=== PATIENT | female | born 1990 | race Caucasian/White ===

== ENCOUNTER 2024-08-27 10:01 | Outpatient (CLI) | payer BC, SELFPAY ==
--- NOTE | ~2024-08-27 | US_ITS ---
EXAMINATION: US OB <= 14 weeks fetus DATE: 08/27/2024 10:51 INDICATION: Threatened miscarriage during first trimester . TECHNIQUE: Real-time pelvic ultrasound utilizing both a transvaginal and transabdominal probe was pe rformed. The interpreting radiologist was not present for the study. COMPARISON: None. FINDINGS: The uterus measures 11.5 x 7.4 x 8.9 cm. There is an intrauterine gestational sac. A yolk sac and fe carlo pole are identified. The crown rump length measures 6.2 cm, which correlates with an estimated ge stational age of 12 weeks and 4 days. heart motion is identified measuring 146 beats per minute (bpm) by M-mode Doppler. The right ovary is not visualized. The left ovary measures 3.3 x 2.7 x 1.3 with internal vascular leonie w with arterial and venous waveforms on color Doppler. There is no free fluid in the pelvis. IMPRESSION: 1. Single living fetus with heart rate of 146 bpm. 2. Gestational age by ultrasound of 12 weeks 4 day(s) +/- 1 week and 1 day(s) with ultrasound estima florentino date of delivery (JOE) of 03/07/2025. Reviewed, dictated and finalized at location [facility]. [facility] IMPRESSION: 1. Single living fetus with heart rate of 146 bpm. 2. Gestational age by ultrasound of 12 weeks 4 day(s) +/- 1 week and 1 day(s) with ultrasound estimated date of delivery (JOE) of 03/07/2025.
--- OUTSIDE RECORDS SUMMARY | 2024-08-27 10:30 | XMS_ITS | Data Portability ---
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 Plan of Treatment Reminders Order Date Submit Date Provider Last Modified By Organization Details Last Modified Time Details Appointments None recorded. Lab PPD (purified protein derivative ), skin test 2015 016 [facility] [employer]), [address] [place], [address], 6 11:10:55 PPD (purified protein derivative ), skin test 2015 016 [facility]), [address] [place], [address], 6 16:01:28 Referral endocrinol ogy referral - Patient with clinical goiter and thyroid symptoms; however labs and thyroid ultrasound normal. 2015 016 [email or web address] Samuel Stewart MD, [address] [place], [address], 6 10:25:33 Procedures None recorded. Surgeries None recorded. Imaging electromyo gram/nerve conduction study - right upper extremity pain and paresthesi a 2015 016 [facility], [address] [place], [address], 6 15:56:38 Medication Orders Depo-Prove ra 150 mg/mL intramuscu lar suspension 2015 016 [email or web address] Not available 6 11:11:32 Celexa 20 mg tablet 2015 016 [facility] [address] [place], [address], 6 11:00:00 Celexa 20 mg tablet 2015 016 [facility] [address] [place], [address], 6 15:39:19 Depo-Prove ra 150 mg/mL intramuscu lar suspension 2015 016 [email or web address] Not available 6 12:40:36 prednisone 10 mg tablet 2015 016 [facility] [address] [place], [address], 6 14:30:01 naproxen 500 mg tablet 2015 016 [facility] [address] [place], [address], 6 14:30:01 cyclobenza tracey 10 mg tablet 2015 016 [facility] [address] [place], [address], 6 15:02:43 naproxen 500 mg tablet 2015 016 [facility] [address] [place], [address], 6 15:02:44 Patient TargetsNo targets recorded. Patient Instructions Encounter Date Encounter Id Patient Instructions Last Modified By Organization Details Last Modified Time 07/28/2015 [id number] goiter: care instructions [email or web address] Not available 10/03/2015 10:46:07 learning about mood disorders Not available 10/03/2015 10:46:08 Follow up in 1 month for recheck on meds. Will follow up as scheduled for next depo shot [email or web address] Not available 07/28/2015 11:00:00 COUNSELING PROVIDED ON DIET AND EXERCISE WITH PATIENT. DISCUSSED IMPORTANCE OF HEALTHY, WELL BALANCED DIET. DISCUSSED BENEFITS OF REGULAR EXERCISE ROUTINE. [email or web address] Not available 07/28/2015 10:52:53 08/22/2015 [id number] learning about mood disorders [email or web address] Not available 10/03/2015 10:46:08 COUNSELING PROVIDED ON DIET AND EXERCISE WITH PATIENT. DISCUSSED IMPORTANCE OF HEALTHY, WELL BALANCED DIET. DISCUSSED BENEFITS OF REGULAR EXERCISE ROUTINE. hbarke Not available 08/22/2015 15:39:04 10/04/2015 [id number] Will follow up a s scheduled for next depo shot [email or web address] Not available 10/04/2015 12:17:17 COUNSELING PROVIDED ON DIET AND EXERCISE WITH PATIENT. DISCUSSED IMPORTANCE OF HEALTHY, WELL BALANCED DIET. DISCUSSED BENEFITS OF REGULAR EXERCISE ROUTINE. hbarke Not available 10/04/2015 12:17:17 11/11/2015 [id number] Will follow up i n 2 weeks for recheck; will obtain NCS to evaluate for paresthesia and pain [email or web address] Not available 11/11/2015 14:17:02 11/25/2015 [id number] Will check back with PT for appt. Follow up as needed [email or web address] Not available 11/25/2015 15:02:39 Reason for Referral Endocrinology Referral for G maryter Patient with clinical goiter and thyroid symptoms; however labs and thyroid ultrasound normal. Referring Physician: Vee Riley, Family Medicine, Encounter Date: 07/28/2015 Results Created Date Observation Date Name Description Value Unit Range Abnormal Flag Note LastModifiedBy Organization Detail LastModifiedTime 07/04/20 15 07/04/2015 CMP, serum or plasm a glucose 84 mg/dL 65-99 normal Fasti ng refer ence inter primo Not Available [employer] [facility] [address] [address], [place], [address], 07/04/2015 14:57:22 07/04/20 15 07/04/2015 CMP, serum or plasm a urea nitrogen (BUN) 13 mg/dL 7-25 normal Not Available [facility] [address] [address], [place], [address], 07/04/2015 14:57:22 07/04/20 15 07/04/2015 CMP, serum or plasm a creatinine 0.72 mg/dL 0.50-1 .10 normal Not Available [address], [address], 07/04/2015 14:57:22 07/04/20 15 07/04/2015 CMP, serum or plasm a eGFR non-afr. turkmen 118 mL/mi n/1.7 3m2 > or = 60 normal Not Available [address], [address], 07/04/2015 14:57:22 07/04/20 15 07/04/2015 CMP, serum or plasm a eGFR 137 mL/mi n/1.7 3m2 > or = 60 normal Not Available [address], [address], 07/04/2015 14:57:22 07/04/20 15 07/04/2015 CMP, serum or plasm a BUN/creatini ne ratio NOT APPLIC ABLE (calc ) 6-22 Not Available [address], [address], 07/04/2015 14:57:22 07/04/20 15 07/04/2015 CMP, serum or plasm a sodium 139 mmol/ L 135-14 6 normal Not Available [address], [address], 07/04/2015 14:57:22 07/04/20 15 07/04/2015 CMP, serum or plasm a potassium 4.2 mmol/ L 3.5-5. 3 normal Not Available [address], [address], 07/04/2015 14:57:22 07/04/20 15 07/04/2015 CMP, serum or plasm a chloride 101 mmol/ L 98-110 normal Not Available [address], [address], 07/04/2015 14:57:22 07/04/20 15 07/04/2015 CMP, serum or plasm a carbon dioxide 26 mmol/ L 19-30 normal Not Available [address], [address], 07/04/2015 14:57:22 07/04/20 15 07/04/2015 CMP, serum or plasm a calcium 9.8 mg/dL 8.6-10 .2 normal Not Available [address], [address], 07/04/2015 14:57:22 07/04/20 15 07/04/2015 CMP, serum or plasm a protein, total 8.0 g/dL 6.1-8. 1 normal Not Available [address], [address], 07/04/2015 14:57:22 07/04/20 15 07/04/2015 CMP, serum or plasm a albumin 4.7 g/dL 3.6-5. 1 normal Not Available [address], [address], 07/04/2015 14:57:22 07/04/20 15 07/04/2015 CMP, serum or plasm a globulin 3.3 g/dL_ (calc ) 1.9-3. 7 normal Not Available [address], [address], 07/04/2015 14:57:22 07/04/20 15 07/04/2015 CMP, serum or plasm a albumin/glob ulin ratio 1.4 (calc ) 1.0-2. 5 normal Not Available [address], [address], 07/04/2015 14:57:22 07/04/20 15 07/04/2015 CMP, serum or plasm a bilirubin, total 0.4 mg/dL 0.2-1. 2 normal Not Available [address], [address], 07/04/2015 14:57:22 07/04/20 15 07/04/2015 CMP, serum or plasm a alkaline phosphatase 112 U/L 33-115 normal Not Available [facility] [employer] [address], [address], 07/04/2015 14:57:22 07/04/20 15 07/04/2015 CMP, serum or plasm a AST 20 U/L 10-30 normal Not Available [address], [address], 07/04/2015 14:57:22 07/04/20 15 07/04/2015 CMP, serum or plasm a ALT 24 U/L 6-29 normal Not Available [address], [address], 07/04/2015 14:57:22 07/04/20 15 07/04/2015 CBC w/ auto diff white blood cell count 8.4 thous and/u L 3.8-10 .8 normal Not Available [address], [address], 07/04/2015 14:57:23 07/04/20 15 07/04/2015 CBC w/ auto diff red blood cell count 4.73 maricruz on/uL 3.80-5 .10 normal Not Available [address], [address], 07/04/2015 14:57:23 07/04/20 15 07/04/2015 CBC w/ auto diff hemoglobin 13.7 g/dL 11.7-1 5.5 normal Not Available [email or web address] [address], [address], 07/04/2015 14:57:23 07/04/20 15 07/04/2015 CBC w/ auto diff hematocrit 42.4 % 35.0-4 5.0 normal Not Available [address], [address], 07/04/2015 14:57:23 07/04/20 15 07/04/2015 CBC w/ auto diff MCV 89.6 fL 80.0-1 00.0 normal Not Available [address], [address], 07/04/2015 14:57:23 07/04/20 15 07/04/2015 CBC w/ auto diff MCH 29.0 pg 27.0-3 3.0 normal Not Available [address], [address], 07/04/2015 14:57:23 07/04/20 15 07/04/2015 CBC w/ auto diff MCHC 32.4 g/dL 32.0-3 6.0 normal Not Available [address], [address], 07/04/2015 14:57:23 07/04/20 15 07/04/2015 CBC w/ auto diff RDW 12.7 % 11.0-1 5.0 normal Not Available [address], [address], 07/04/2015 14:57:23 07/04/20 15 07/04/2015 CBC w/ auto diff platelet count 371 thous and/u L 140-40 0 normal Not Available [address], [address], 07/04/2015 14:57:23 07/04/20 15 07/04/2015 CBC w/ auto diff MPV 8.0 fL 7.5-11 .5 normal Not Available [address], [address], 07/04/2015 14:57:23 07/04/20 15 07/04/2015 CBC w/ auto diff absolute neutrophils 4351 cells /uL 1500-7 800 normal Not Available [address], [address], 07/04/2015 14:57:23 07/04/20 15 07/04/2015 CBC w/ auto diff absolute lymphocytes 3385 cells /uL 850-39 00 normal Not Available [address], [address], 07/04/2015 14:57:23 07/04/20 15 07/04/2015 CBC w/ auto diff absolute monocytes 529 cells /uL 200-95 0 normal Not Available [address], [address], 07/04/2015 14:57:23 07/04/20 15 07/04/2015 CBC w/ auto diff absolute eosinophils 101 cells /uL 15-500 normal Not Available [address], [address], 07/04/2015 14:57:23 07/04/20 15 07/04/2015 CBC w/ auto diff absolute basophils 34 cells /uL 0-200 normal Not Available [address], [address], 07/04/2015 14:57:23 07/04/20 15 07/04/2015 CBC w/ auto diff neutrophils 51.8 % normal Not Available [address], [address], 07/04/2015 14:57:23 07/04/20 15 07/04/2015 CBC w/ auto diff lymphocytes 40.3 % normal Not Available [address], [address], 07/04/2015 14:57:23 07/04/20 15 07/04/2015 CBC w/ auto diff monocytes 6.3 % normal Not Available [address] [place], [address], 07/04/2015 14:57:23 07/04/20 15 07/04/2015 CBC w/ auto diff eosinophils 1.2 % normal Not Available [facility] [place] [address] [place], [address], 07/04/2015 14:57:23 07/04/20 15 07/04/2015 CBC w/ auto diff basophils 0.4 % normal Not Available [facility] [place] [address] [address], [place], [address], 07/04/2015 14:57:23 07/04/20 15 07/04/2015 varic miriam dallas igg Ab scree n, serum varicella zoster virus antibody (IgG) 4.02 index normal Index Expla natio n of Resul ts ----- ---- ----- ----- ----- ----- -- < or = 0.90 Negat leora - No VZV IgG Antib lexis detec florentino 0.91 - 1.09 Equiv ocal > or = 1.10 Posit leora - VZV IgG Antib lexis detec florentino A posit leora resul t indic ates that the patie nt has antib lexis to VZV but does not diffe renti ate betwe en infec tion (acti ve or past) and vacci natio n. The clini mil diagn osis must be inter prete d in conju nctio n with the clini mil signs and sympt oms of the patie nt. This assay relia tita measu res immun ity due to previ ous infec tion but may not alway s be sensi tive enoug h to detec t antib odies induc ed by vacci natio n. Thus, a negat leora resul t in a vacci nated indiv idual does not neces saril y indic ate susce ptibi lity to VZV infec tion. Not Available [facility] [address] [place] [address] [address], [place], [address], 07/04/2015 14:57:24 07/04/20 15 07/04/2015 TSH, serum or plasm a TSH 1.86 mIU/L normal Refer ence Range > or = 20 Years 0.40- 4.50 Pregn otto Range s First trime ster 0.26- 2.66 Secon d trime ster 0.55- 2.73 Third trime ster 0.43- 2.91 NO COLLE CTION DATE RECEI MILA. WE HAVE USED THE DATE THE SPECI MEN WAS RECEI MILA BY THIS LABOR ATORY THE COLLE CTION DATE. IF THIS IS INCOR RECT, PLEAS E CONTA CT CLIEN T SERVI KATHERINE. PHONE NUMBE R: [phone] Not Available [email or web address] [facility] [address] [place], [address], 07/04/2015 14:57:24 08/22/19 16 08/22/2015 PPD (ramona fied prote in deriv ative ), skin test TB negati ve Not Available [facility] [employer] [facility]) [address] [place], [address], 08/22/2015 15:39:05 07/01/20 15 07/01/2015 rapid strep group A, throa t Strep negati ve Not Available [facility] [employer] ([place]) [address] [place], [address], 07/01/2015 16:34:27 07/28/19 16 07/28/2015 PPD (ramona fied prote in deriv ative ), skin test TB Not Available [facility] [employer] ([place]) [address] [place], [address], 07/28/2015 10:52:53 07/11/20 15 07/11/2015 US thyro id head/ neck/ sft tis [facility] [address] [place] [address] [facility] OGY REPORT ____ NAME: PENNY NIETO ROOM: : 1990 ACCJLUIS T#: [id number] BED: AGE: 24 Y ACCESS ION#: [id number] SEX: F EXAM: UTHY THYROI D HEAD/N FREDO/SF T TIS US DOS: 2014 DICTAT ED BY: KRISTEN ASKEW ORDERE D BY: VEE RILEY ATTEND ING PHYSIC JÚNIOR: VEE RILEY PRIMAR Y CARE PHYSIC JÚNIOR: VEE RILEY ____ EXAM: Thyroi d ultras ound. Histor y: Nontox ic goiter . Techni que: Multip le sonogr aphic images throug h the thyroi d gland were obtain ed. Color duplex Dopple r was used to interr ogate vascul ar flow. Findin gs: The right lobe of the thyroi d measur es 3.6 cm x 1.2 cm x 1.2 cm and is withou t discre te nodule identi fied. The thyroi d isthmu s measur es 2.2 mm in thickn ess. The left lobe of the thyroi d measur es 3.5 cm x 1.3 cm x 1.1 cm and is withou t discre te nodule identi fied. The thyroi d gland is not hyperv ascula r. No extrat hyroid al masses are identi fied. Impres jaime: Unrema rkable thyroi d ultras ound. This docume nt is electr onical ly signed by: Kristen suh on 2014 at 10:04 AM (CTO) . KRISTEN SUH M.DRoya D Date/T james: 2014 10:[address] T Date/T james: 2014 10:[address] MT: [facility] Page 1 of 1 [facility] (Imaging) [address] [place], [address], 07/28/2015 10:56:46 07/12/20 15 07/11/2015 ultra sound , thyro id No observ ation record ed. [facility] (Rad) [address] [place], [address], 07/28/2015 10:56:46 08/25/19 16 08/25/2015 CT neck wo [facility] [address] [place] [address] [phone] [facility] OGY REPORT ____ NAME: PENNY NIETO ROOM: : 1990 ACCOUN T#: [id number] BED: AGE: 24 Y ACCESS ION#: [id number] SEX: F EXAM: CTNKS CT NECK W/O CONTRA ST DOS: 2015 DICTAT ED BY: KRISTEN ASKEW ORDERMando D BY: VEE RILEY ATTEND ING PHYSIC JÚNIOR: VEE RILEY PRIMNE Y CARE PHYSIC JÚNIOR: VEE RILEY ____ EXAM: CT of the neck withou t contra st. Histor y: Neck swelli ng. Techni que: Multip lanar CT images throug h the soft tissue neck were obtain ed withou t the admini strati on of IV contra st. Findin gs: The visual ized lung apices are free of consol idatio n. No acute osseou s abnorm alitie s. The visual ized parana darrell sinuse s and mastoi d air cells are clear in genera l. The epiglo ttis is not thicke osei. Evalua tion for lymph nodes is limite d due to lack of contra st admini strati on but no bulky neck lympha denopa thy is identi fied. There are severa l small bilate ral cervic al chain neck lymph nodes. The subman dibula r glands are not inflam ed. The paroti d glands are not inflam ed. Bilate ral paroti d soft tissue nodule s measur ing up to 7 mm on the right and 5 mm on the left. No discre te thyroi d nodule s identi fied. The tonsil s are not inflam ed. No fluid collec tions. The visual ized orbits are intact . Visual ized intrac ranial conten ts demons trate no grossl y acute findin gs. Impres jaime: 1. Indete rminat e sub-ce ntimet er bilate ral paroti d nodule s. Both benign and malign ant etiolo gies should be consid ered. Furthe r evalua tion/f ollow- up recomm ended. 2. Evalua tion for lymph nodes is limite d due to the lack of contra st admini strati on but no bulky lympha denopa thy identi fied. There are severa l small bilate ral cervic al chain neck lymph nodes that could be reacti ve. Page 1 of 2 [facility] OGY REPORT ____ NAME: PENNY NIETO ROOM: : 1990 ACCOUN T#: [id number] BED: AGE: 24 Y ACCESS ION#: [id number] SEX: F EXAM: CTNKS CT NECK W/O CONTRA ST DOS: 2015 DICTAT ED BY: KRISTEN ASKEW ORDERE D BY: VEE RILEY ATTEND ING PHYSIC JÚNIOR: VEE RILEY PRIMAR Y CARE PHYSIC JÚNIOR: DELGADOGEORGIANA GilmoreEY Loretta ____ This docume nt is electr onical ly signed by: Kristen suh on 2015 at 09:41 AM (CTO) . KRISTEN SUH M.D. D Date/T james: 2015 09:[address] T Date/T james: 2015 09:[address] MT: [facility] Page 2 of 2 [facility] (Imaging) [address] [place], [address], 10/04/2015 12:17:18 08/26/19 16 08/25/2015 CT, neck No observ ation record ed. [facility] (Rad) [address] [place], [address], 10/04/2015 12:17:18 11/17/19 16 11/17/2015 elect romyo gram/ nerve condu ction study No observ ation record ed. [address] In-House Results [address] [place], [address], 11/18/2015 12:39:55 Result Notes None recorded. Problems Name Problem SNOMED Code Status Onset Date Resolution Date Notes Provider Name and Address Organization Details Recorded Time Paresthesia of hand 329472435 TICO Chu [address] [place], [place] [address], [address], [facility] [employer] 6 15:03:21 Paresthesia of upper limb 84769749 TICO [address] [place], [address], [facility] [employer] [facility] 6 15:03:21 Cervical radiculopathy 45661867 TICO [address] [place], [address], [facility] [employer] 6 15:03:21 Goiter 7531687 Active TICO Coello [address] [place], [address], [facility] [employer] 6 15:03:21 Depressive disorder 56276656 Active TICO Coello [address] [facility] [place], [address], [facility] [employer] 6 15:03:21 Mass of neck 746529218 Active TICO Coello [address] [facility] [place], [address], [facility], [facility] 6 15:03:21 Problem Notes None recorded. Procedures Surgical History Date Name Laterality Status Provider Name and Address Organization Details Recorded Time 07/28/2015 PHQ-9 completed TICO Coello [address] [facility] [place], [address], [facility] [employer], [facility] 07/28/2015 10:55:27 Imaging Results Imaging Date Name Status LastModified by [facility] Details LastModified Time 07/11/2015 US thyroid head/neck/sft tis completed [facility] (Imaging) [address] [facility] [place], [address], 07/28/2015 10:56:46 07/11/2015 ultrasound, thyroid completed [facility] (Rad) [address] [place], [address], 07/28/2015 10:56:46 08/25/2015 CT neck wo completed [facility] (Imaging) [address] [facility] [place], [address], 10/04/2015 12:17:18 08/25/2015 CT, neck completed [facility] (Rad) [address] [place], [address], 10/04/2015 12:17:18 11/17/2015 electromyogram/ nerve conduction study completed [email or web address] In-House Results [address] [place], [address], 11/18/2015 12:39:55 Procedure Notes None recorded. Medical Equipment None Reported. Allergies No known drug allergies Medications Name Sig Start Date Stop Date Status Note LastModified by Organization Details LastModified Time cyclobenzapr ine 10 mg tablet Take 1 tablet every day by oral route at bedtime. 2015 active Not Available Not Available Not Avai lable prednisone 10 mg tablet Take by oral route. Take 3 pills x 2 days, 2 pills x 2 days, 1 pill x 2 days. 2015 active Not Available Not Available Not Avai lable Depo-Provera 150 mg/mL intramuscula r suspension Inject 1 mL every 3 months by intramuscul ar route. 2015 active Not Available Not Available Not Avai lable Celexa 20 mg tablet Take 1 tablet every day by oral route. 2015 active Not Available Not Available Not Avai lable naproxen 500 mg tablet Take 1 tablet twice a day by oral route. 2015 active Not Available Not Available Not Avai lable Vitals Date Recorded Body mass index (BMI) Body height Body weight Heart rate Systolic blood pressure Diastolic blood pressure Provider Name and Address Organization Details Last Updated DateTime 6 28.3 kg/m2 162.56 cm 22848.0 22727 g 74 /min 118 mm[Hg] 70 mm[Hg] [employer] [facility] [employer] [facility] 6 10:34:24 Date Recorded Body weight Body mass index (BMI) Heart rate Body height Systolic blood pressure Diastolic blood pressure Provider Name and Address Organization Details Last Updated DateTime 6 99882.7 792 g 27.5 kg/m2 74 /min 162.56 cm 126 mm[Hg] 62 mm[Hg] [facility] 6 15:32:55 Date Recorded Body weight Body mass index (BMI) Body height Systolic blood pressure Diastolic blood pressure Provider Name and Address Organization Details Last Updated DateTime 10/04/2015 34045.18 683 g 27.3 kg/m2 162.56 cm 126 mm[Hg] 72 mm[Hg] Chelle Samson [place] [employer] 6 12:08:20 Date Recorded Body mass index (BMI) Body height Heart rate Body weight Systolic blood pressure Diastolic blood pressure Provider Name and Address Organization Details Last Updated DateTime 6 28.4 kg/m2 162.56 cm 78 /min 89487.4 86018 g 120 mm[Hg] 71 mm[Hg] Laureen Chahalkins [place] [employer] 6 14:05:20 Date Recorded Body weight Body height Heart rate Oxygen saturation Oxygen saturation in Arterial blood by Pulse oximetry Body mass index (BMI) Systolic blood pressure Diastolic blood pressure Provider Name and Address Organization Details Last Updated DateTime 6 43164.1 4868 g 162.56 cm 114 /min 97 % 97 % 28.2 kg/m2 140 mm[Hg] 68 mm[Hg] Margaret Weir LPN [place] [employer] 14:52:06 Social History Question Answer Notes LastModified by Organizat ion Details LastModified Time Tobacco Smoking Status Never [facility]oker [facility] [employer] 07/01/2015 16:30:03 What Is Your Level Of Alcohol Consumption? None Information not available 07/28/2015 Which Illicit Or Recreational Drugs Have You Used? None Information not available 07/28/2015 Do You Reside In Or Have You Traveled To An Area Where Ebola Virus Transmission Is Active? No Information not available 07/28/2015 Education 4 Year College Information not available 07/28/2015 Hard Of Hearing Or Deaf In One Or Both Ears? No Information not available 07/28/2015 Legally Blind In One Or Both Eyes? No Information no t available 07/28/2015 Live Alone Or With Others? With Others Information not available 07/28/2015 How Many Children Do You Have? 1 Information not available 07/28/2015 Smoke Alarm In Home Yes Information not available 07/28/2015 Sex: Unknown Functional Status None recorded. Mental Status None recorded. Family History Relationship Description Onset Age of this Age Resolved Age Notes LastModified by Organization Details LastModified Time Unspecified Relation Diabetes mellitus [email or web address] Not available 2015 14:05:21 Unspecified Relation Hypertensive disorder [email or web address] Not available 2015 14:05:21 Sister Hypothyroidi sm [email or web address] Not available 2015 14:05:21 Medical History Condition Response Coronary Artery Disease N Heart Problems N Other N Hyperthyroidism N Kidney or Bladder Problems N GI Problems N Hypothyroidism N Depression Y COPD N Defects or Inherited Disease N Anemia N Headaches/Migraines N Mental Illness N Diabetes N Muscle, Joint, or Bone Problems N Obesity N Arthritis N Infertility N Tuberculosis N AIDS/HIV N Congestive Heart Failure (CHF) N Cancer N Abuse/Domestic Violence N Asthma N Allergies N Reflux/GERD N High Cholesterol N Hepatitis N Fibromyalgia N Hypertension N Chicken Pox N Gynecological History Statement/Question Response Flow Moderate Date of LMP 06/16/2015 Menses Monthly Y HPV Vaccine N Date of Last Pap Smear Current Control Method None LMP Approximate Desired Control Method Obstetrics History GPAL:G 0 P 0 0 0 0 Immunizations Vaccine Type Date Status Note Provider Nam e and Address Organization Details Recorded Time Tdap 07/28/2015 completed Not Available [facility] 08/08/2019 02:28:13 DTaP, 5 pertussis antigens 03/05/1997 [place], [address], [facility] 07/28/2015 10:46:53 MMR 03/01/1993 [place], [address], [facility] 07/28/2015 10:46:53 GNkA-Swr-VTL 03/18/1992 [place], [address], [facility] 07/28/2015 10:46:53 DTaP-IPV 05/26/1993 completed TICO Coello [facility] [place], [address], [facility] [employer] 07/28/2015 10:46:53 IIoT-Cow-KTW 01/07/1992 completed TICO Coello [place] [facility] [place], [address], [facility] [employer] [employer] 07/28/2015 10:46:53 VTaV-Dms-OER 05/20/1992 completed TICO Coello [address] [place], [address], [facility] [employer] 07/28/2015 10:46:53 MMR 01/27/1997 completed TICO Coello [address] [place], [address], [facility] [employer] 07/28/2015 10:46:53 Past Encounters Encounter ID Performer Location Encounter Start Date Encounter Closed Date Diagnosis/Indication Diagnosis SNOMED-CT Code Diagnosis ICD10 Code Diagnosis Note [id number] TICO Coello [address] [address] 07/01/2015 16:12:42 07/01/2015 16:46:27 Goiter 0143052 E04.9 [id number] TICO Coello [address] [address] 07/28/2015 10:21:19 07/28/2015 10:58:53 Goiter 9791365 E04.9 Depressive disorder 3548 9007 F32.9 Contraception care 83924 5005 Z30.40 [id number] TICO Coello [address] [address] 08/22/2015 15:24:53 08/22/2015 15:39:50 Depressive disorder 53019207 F32.9 Active or passive immunization 298083135 Z23 [id number] TICO Coello [address] [address] 10/04/2015 11:47:55 10/04/2015 12:19:28 Contraception care 751137898 Z30.40 [id number] TICO Coello [address] [address] 11/11/2015 13:46:12 11/11/2015 14:18:11 Paresthesia of hand 682080972 R20.2 Paresthesi a of upper limb 67801553 R20.2 [id number] TICO Coello [address] [address] 11/25/2015 14:46:56 11/25/2015 15:03:36 Cervical radiculopathy 20142169 M54.12 Health Concerns Section Related Observation LastModified by Organization Detai ls LastModified Time None Recorded Concern Status LastModified by Organization Details LastModified Time None Recorded Advance Directives Directive None Recorded Payers Encounter Date Sequence Insurance Name Policy Number Policy Erazo Covered Member ID Erazo Member ID Guarantor Name 07/28/2015 1 [place] [facility] Penny Nieto [id number] Penny Nieto 08/22/2015 1 [place] [facility] Penny Nieto [id number] Penny Nieto 10/04/2015 1 [place] [facility] Penny Nieto [id number] Penny Nieto 11/11/2015 1 [place] [facility] Penny Nieto [id number] Penny Nieto 11/25/2015 1 [place] [facility] A[facility] Penny Nieto [id number] Penny Nieto Notes Date Note Type Note Provider Name and Address Organization Details Recorded Time 07/28/2015 text/html Patient here tomarlene ay for new patient appointment. Otherwise she is still needing a referral to ENDO. No other concerns to report. TICO Coello [address] [place] [address], [phone], [employer] 07/28/2015 11:00:13 08/22/2015 text/html Patient here tod ay for her 2nd TB skin test and to recheck her Celexa which she states is working well. Denies any other concerns at today's visit. TICO Coello [address] [place] [address], [phone], [employer] 08/22/2015 15:39:07 10/04/2015 text/html Patient here tod ay for her depo shot. She has no concerns to report at today's visit. TICO Coello [address] [place] [address], [phone], [employer] 10/04/2015 12:17:38 11/11/2015 text/html Patient here tod ay for concerns or right arm/shoulder pain. She states she has had trouble with her shoulder for the last couple of years, but just the other day she was sitting in her car and had a pain shoot from her wrist up her arm to her shoulder area. She does have numbness/tingling in her arm. She has also noticed decreased strength in the wrist and hand. She has trouble writing at times. Otherwise no other concerns to report. TICO Coello [address] [place] [address], [phone], [facility] [employer], [facility] 11/11/2015 14:30:09 11/25/2015 text/html Patinet here tod fernando for a follow up on meds and imaging. We had referred her to PT; however she has not heard from them yet. She states she has noticed some improvement with the medications. Otherwise no other concerns to report. TICO Coello [address] [place], [address], [facility] [employer], [facility] 11/25/2015 15:03:26 OBGyn Episode No OBEpisode recorded.
--- OUTSIDE RECORDS SUMMARY | 2024-08-27 10:30 | XMS_ITS | Clinical Summary ---
Author Organization [facility] Address [address] [place] [address] Care Team Providers Care Financial Consultant Name Role Phone Randall Salgado MD Unavailable [phone] Ranjan Gerard MD Primary Care Provider + Allergies No known active allergies Medications No known medications Active Problems Problem Noted Date Diagnosed Date Pre-syncope 07/09/2021 Bartholin's duct cyst 02/11/2020 Overview (09/21/2021): Added automatically from request for surgery [id number] C6 radiculopathy 12/11/2018 Essential hypertension 12/11/2018 Encounters Date Type Department Care Team Description 07/08/2024 11:00 AM NURSING HOME ASSISTANT Office Visit [address] [address] Ranjan Gerard MD Follow Up (Follow up for DM /) 07/08/2024 Travel from Last 3 Months Immunizations Name Administration Dates Next Due DTaP-IPV (Kinrix) 05/26/1993 DTaP-IPV/Hib (Pentacel) 05/20/1992,03/18/1992, Dtap 03/05/1997 Dtp 05/20/1992 HPV GARDASIL 9-VALENT 05/11/2020,03/01/2020 HPV4 (Gardasil) 09/14/2020 Hepatitis B (Generic Peds) 03/05/1997,11/03/1996 ,09/29/1996 Hib 05/26/1993,05/20/1992 Influenza Adult (Generic) 04/24/2019,04/18/2017 MMR 01/27/1997,03/01/1993 MODERNA COVID-19 (12+) MRNA, LNP-S, PF, 100 MCG/ 0.5 ML DOSE 10/06/2020,09/07/2020 Opv 03/05/1997 Tdap (Generic) 07/28/2015 Family History Medical History Relation Comments pulmonary valve stenosis Daughter Diabetes Father Hypertension Father Hypertension Mother Diabetes Paternal Grandfather Diabetes Sister Relation Status Comments Daughter Father Mother Paternal Grandfather Sister Social History Tobacco Use Types Packs/Day Years Used Date Smoking Tobacco: Never Passive Smoke Exposure: Never Smokeless Tobacco: Never Tobacco Cessation:Counseling Given: No Alcohol Use Standard Drinks/Week Comments No 0 (1 standard drink = 0.6 oz pur e alcohol) AUDIT-C Answer Date Recorded Frequency of Alcohol Consumption Never 10/31/2018 Average Number of Drinks Not on file Frequency of Binge Drinking Not on file 10/20 PHQ-2 Answer Date Recorded Patient Health Questionnaire-2 Score 0 07/08/2024 Comments No Sex and Gender Information Value Date Recorded Sex Assigned at Not on file Legal Sex Female 8:52 AM CDT Gender Identity Not on file Sexual Orientation Not on file Last Filed Vital Signs Vital Sign Reading Time Taken Comments Blood Pressure 130/70 07/08/2024 10:45 AM NURSING HOME ASSISTANT Pulse 87 07/08/2024 10:45 AM NURSING HOME ASSISTANT Temperature 36.7 C (98.1 F) 07/08/2024 10:45 AM NURSING HOME ASSISTANT Respiratory Rate 20 07/08/2024 10:45 AM NURSING HOME ASSISTANT Oxygen Saturation 100% 07/08/2024 10:45 AM NURSING HOME ASSISTANT Inhaled Oxygen Concentration - - Weight 77.7 kg (171 lb 6.4 oz) 07/08/2024 10:45 AM NURSING HOME ASSISTANT Height 162.6 cm (5' 4 ) 07/08/2024 10:45 AM NURSING HOME ASSISTANT Body Mass Index 29.42 07/08/2024 10:45 AM NURSING HOME ASSISTANT Plan of Treatment Health Maintenance Due Date Last Done Comments Cervical Cancer Screening Pap Smear (Age 30 to 64) Every 3 Years 1991 Kidney Health Evaluation 1991 Annual Physical 11/12/1994 Pneumococcal Vaccine: Pediatrics (0 to 5 Years) and At-Risk Patients (6 to 64 Years) (1 of 2 - PCV) 11/12/1997 Diabetes: Retinopathy Eye Exam 11/12/2009 Hepatitis C 11/12/2009 Cervical Cancer Screening Pap with HPV Testing (Age 30 to 64) Every 5 Years 11/12/2021 Cervical Cancer Screening with HPV 11/12/2021 COVID-19 Vaccine ( season) 2024 10/06/2020, 09/07/2020 Influenza Adult (#1) 2024 05/14/2023, 04/21/2021, 05/04/2020, Additional history exists PHQ-2 (Physician [place]) 07/22/2024 07/08/2024 Lipid Panel 11/24/2024 11/25/2023 Hemoglobin A1C 01/06/2025 07/08/2024, 05/0 12/2023, 05/09/2021 PHQ-2 (Physician [place]) 07/08/2025 07/08/2024 DTaP, Tdap and Td Vaccines (8 - Td or Tdap) 06/06/2033 06/06/2023, 07/28/2015, 01/31/2006, Additional history exists Hepatitis B Vaccines Completed 03/05/1997, 11/03/1996, 09/29/1996 Meningococcal Vaccine Aged Out 01/31/2006 No grace indra eligible based on patient's age to complete this topic HPV Vaccines Completed 09/14/2020, 04/22, 03/01/2020 Meningococcal B Vaccine Aged Out No l onger eligible based on patient's age to complete this topic RSV Immunizations Under 20 Months Aged Out No longer eligible based on patient's age to complete this topic Procedures Procedure Name Priority Date/Time Associated Diagnosis Comments HEMOGLOBIN, GLYCOSYLATED Routine 07/08/2024 Type 2 diabetes mellitus without complication, without long-term current use of insulin ([facility]) LIPID PANEL Routine 11/25/2023 9:23 AM CDT Type 2 diabetes mellitus without complication, without long-term current use of insulin ([facility]) from Last 3 Months or Most Recently Relevant to Health Maintenance Results * A1C (BACK OFFICE) (07/08/2024) HGB A1C 8.8 % [facility] (6207)[place] 07/08/2024 Ranjan Gerard MD LABORATORY Final Re sult [facility] (3416), [place] [address] [place] [address], * LIPID PANEL (11/25/2023 9:23 AM CDT) CHOLESTEROL 150 <200 MG/DL 11/25/2023 10:[address] [facility] TRIGLYCERIDES 53 <150 MG/DL 11/25/2023 10:[address] [facility] HDL 52 >40.0 MG/DL 11/25/2023 10:[address] [facility] LDL (CALCULATED) 87 <100 MG/DL 11/25/19 10:[address] [facility] NON HDL CHOLESTEROL 98 <130 MG/DL 11/24 10:[address] [facility] Comment: NOTE: WHEN THE TRIGLYCERIDES ARE >200 mg/dL, NON HDL C IS A SECONDARY TARGET OF THERAPY, WITH A GOAL 30 mg/dL HIGHER THAN THE IDENTIFIED LDL C GOAL. CHOL/HDL RATIO 2.9 0.0 - 4.5 11/25/2023 10:[address] [facility] VLDL CALCULATION 11 5 - 55 MG/DL 11/25/2023 10:03 AM [facility] LIPID INTERPRETATION 11/25/2023 10:[address] [facility] Comment: NIH CONCENSUS REPORT RECOMMENDATIONS: ADULT CHILD LOW RISK: CHOLESTEROL <200 <170 TRIGLYCERIDE <150 --- HDL >=60 --- LDL <100 <110 BORDERLINE: CHOLESTEROL 200-239 170-199 TRIGLYCERIDE 150-199 --- HDL 40-59 --- LDL 100-159 110-129 HIGH RISK: CHOLESTEROL >=240 >=200 TRIGLYCERIDE >=200 --- HDL <40 --- LDL >=160 >=130 11/25/2023 9:23 AM CDT Ranjan Gerard MD LABORATORY Final Re sult [facility] [address] [place] [address], from Last 3 Months or Most Recently Relevant to Health Maintenance Insurance [facility] Care Teams Financial Consultant Relationship Specialty Start Date End Date Ranjan Gerard MD [address] [address] PCP - General FAMILY PRACTICE 11/19/23 Randall Salgado MD [address] [place] [address] [facility] Room Hand CARDIOVASCULAR DISEASE 10/24/18
--- OUTSIDE RECORDS SUMMARY | 2024-08-27 10:30 | XMS_ITS | Encounter Summary ---
Author Organization [facility] Address [address] [place] [address] Care Team Providers Care Pharmacovigilance Scientist Name Role Phone Jane Villatoro MD Primary Care Provider [phone] Randall Salgado MD Unavailable [phone] Ranjan Gerard MD Primary Care Provider + Encounter Details Date Type Department Care Team (Late st Contact Info) Description 10/30/2021 Abstract [facility] [address] Abstract, Doc [facility] Social History Tobacco Use Types Packs/Day Years Used Date Smoking Tobacco: Never Smokeless Tobacco: Never Alcohol Use Standard Drinks/Week Comments No 0 (1 standard drink = 0.6 oz pur e alcohol) AUDIT-C Answer Date Recorded Frequency of Alcohol Consumption Never 10/31/2018 Average Number of Drinks Not on file 019 Frequency of Binge Drinking Not on file 10/20 Comments No Sex and Gender Information Value Date Recorded Sex Assigned at Not on file Legal Sex Female 8:52 AM CDT Gender Identity Not on file Sexual Orientation Not on file documented as of this encounter Plan of Treatment Not on file documented as of this encounter Procedures Procedure Name Priority Date/Time Associated Diagnosis Comments MAGNESIUM (OUTSIDE LAB) Routine 05/09/2021 TSH (OUTSIDE LAB) Routine 05/09/2021 CMP (OUTSIDE LAB) Routine 05/09/2021 HEMOGLOBIN, GLYCOSYLATED Routine 05/09/2021 CMP (OUTSIDE LAB) Routine 02/10/2021 documented in this encounter Results * (ABNORMAL) CMP (OUTSIDE LAB) (05/09/2021) SODIUM S/P/B 139 134 - 144 Comment:RESULT NOTE FASTING YES POTASSIUM S/P/B 4.4 3.5 - 5.2 CHLORIDE S/P/B 100 96 - 106 CO2 24 20 - 29 BUN 10 6 - 20 CREATININE S/P/B 0.58 0.57 - 1.00 EGFR AFR. AMER. 144(A) <=90 EGFR NON-AFR. AMER. 125(A) <=90 CALCIUM S/P/B 9.7 8.7 - 10.2 GLUCOSE 107(A) 65 - 99 mg/dL TOTAL PROTEIN S/P/B 7.5 6.0 - 8.5 ALBUMIN S/P/B 4.4 3.9 - 5.0 AST 21 0 - 40 ALT 18 0 - 32 ALKALINE PHOSPHATASE S/P/B 85 44 - 121 BILIRUBIN TOTAL S/P/B 0.2 0.0 - 1.2 05/09/2021 us Doc [facility] Abstract LAB-OUTSIDE/ABSTRACTED Final Result * (ABNORMAL) HEMOGLOBIN, GLYCOSYLATED (05/09/2021) HGB A1C 6.3(A) 4.8 - 5.6 % Comment:RESULT NOTE FASTING YES 05/09/2021 us Doc [facility] Abstract LABORATORY Final Result * MAGNESIUM (OUTSIDE LAB) (05/09/2021) Pathologist [facility] MAGNESIUM 1.9 1.6 - 2.3 Comment:RESULT NOTE FASTING YES 05/09/2021 us Doc [facility] Abstract LAB-OUTSIDE/ABSTRACTED Final Result * TSH (OUTSIDE LAB) (05/09/2021) TSH 1.720 0.450 - 4.500 Comment:RESULT NOTE FASTING YES T4 FREE DIRECT DIALYSIS 1.17 0.82 - 1.77 Comment:RESULT NOTE FASTING YES 05/09/2021 us Doc [facility] Abstract LAB-OUTSIDE/ABSTRACTED Final Result * (ABNORMAL) CMP (OUTSIDE LAB) (02/10/2021) SODIUM S/P/B 139 134 - 144 POTASSIUM S/P/B 4.5 3.5 - 5.2 CHLORIDE S/P/B 101 96 - 106 CO2 24 20 - 29 BUN 11 6 - 20 CREATININE S/P/B 0.67 0.5 - 1.0 EGFR AFR. AMER. 137(A) <=90 EGFR NON-AFR. AMER. 119(A) <=90 CALCIUM S/P/B 9.4 8.7 - 10.2 GLUCOSE 95 65 - 99 mg/dL TOTAL PROTEIN S/P/B 7.6 6 - 8.5 ALBUMIN S/P/B 4.6 3.5 - 5.0 AST 20 0 - 40 ALT 25 0 - 32 ALKALINE PHOSPHATASE S/P/B 91 48 - 121 BILIRUBIN TOTAL S/P/B 0.4 0.0 - 1.2 02/10/2021 us Doc [facility] Abstract LAB-OUTSIDE/ABSTRACTED Final Result documented in this encounter Visit Diagnoses Not on filedocumented in this encounter Care Teams Pharmacovigilance Scientist Relationship Specialty Start Date End Date Jane Villatoro MD [address] [place] [address] PCP - General FAMILY PRACTICE 10/24/18 11/18/23 Ranjan Gerard MD [address] [place] [address] PCP - General FAMILY PRACTICE 11/19/23 Randall Salgado MD [address] [place] [address] [employer] Manager CARDIOVASCULAR DISEASE 10/24/18 documented as of this encounter
--- OUTSIDE RECORDS SUMMARY | 2024-08-27 10:30 | XMS_ITS | Referral Summary ---
Author Organization [facility] Address [address] [place] [address] Care Team Providers Care Deck And Hull Assembler Name Role Phone No, Physician Primary Care Provider [phone] Encounters Date Type Department Care Team Description 08/25/2024 Documentation [facility] [address] [place] [phone] Sherry Luna MD Glycemic control - CGM review 08/19/2024 1:45 PM MANAGER GREEN Telemedicine [facility]ne[facility] [address] [place] [phone] Chronic hypertension affecting (Primary Dx); Unspecified high-risk ; Pre-existing type 2 diabetes mellitus during in first trimester; Supervision of high risk in first trimester; Previous with congenital heart defect, currently , first trimester 08/19/2024 1:15 PM MANAGER GREEN Ancillary Procedure [facility] [address] [place] [phone] Unspecified high-risk 08/18/2024 Telephone [facility]ne[facility] [address] [place] [phone] Araceli Tee 08/07/2024 Telephone [facility] Maternal- Medicine [address] [place] [address] Health 7th Floor [address] [place] [address] Rita Henao, OVERHEAD IRRIGATOR Scheduling US/OB Consult from Last 3 Months Allergies No known active allergies Medications insulin lispro (HumaLOG, ADMELOG) 100 unit/mL vial for injection Inject 7 Units under the skin 3 (three) times a day before meals Active insulin glargine 100 unit/mL (3 mL) pen for injection Inject 25 Units under the skin daily Active aspirin 81 mg chewable tablet Take 1 tablet (81 mg total) by mouth daily Active Active Problems Problem Noted Date Diagnosed Date Previous with brina enital heart defect, currently , first trimester 08/19/2024 Overview (08/19/2024): History: 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 Doing well now. Counseling 08/19/2024: Congenital heart disease (CHD) is the most common severe congenital defect affecting 8-03/1000 live births. In patients who have a family history of CHD, risk of recurrence depends on what family member was affected. For an affected mother the risk of recurrence is 3-7%, an affected father the risk is 2-3% and a prior affected sibling the risk of recurrence is 2-6%. The increased risk can also vary depending on the particular type of CHD. 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 Doing well now. Counseling 08/19/2024: Congenital heart disease (CHD) is the most common severe congenital defect affecting 8-03/1000 live births. In patients who have a family history of CHD, risk of recurrence depends on what family member was affected. For an affected mother the risk of recurrence is 3-7%, an affected father the risk is 2-3% and a prior affected sibling the risk of recurrence is 2-6%. The increased risk can also vary depending on the particular type of CHD. Plan: [] Specialized anatomic survey at 18-22 weeks [] Offer echocardiogram with pediatric cardiology Supervision of high risk in first trim mike 08/11/2024 Overview (08/19/2024): [x] Co-management vs. [] Full MFM Care; [] Red Team [x] Blue Team Referring Provider: Trent Levin [phone] > Transferring to [facility] 08/30/24. [] or Medicare Insurance [x] Dating Criteria: LMP:05/28/24 JOE:03/04/25 [x] Labs: Rh [A-], Ab [NEG], Rubella [IMM], HIV [NEG], HepBSAg [NEG], HepBSAb [], HepBCAb [], RPR [], Hep C [NEG], Varicella [], GC/CT [] [] Aneuploidy Screening: [] Carrier Screening: [] Hgb electrophoresis: [x] CBC/Hgb: 13.8/40.8/394 [] Early 1hr GTT (if indicated): [] UCx: [] Pap: [x] LD ASA (if indicated): [] EPDS [ ]; PNBHS referral (if indicated): 2nd Trimester [] Anatomy ultrasound: [] CBC/1hr gtt at 24-28wks: [] Rhogam at 28 wks (if Rh neg): A- 3rd Trimester [] CBC/HIV/RPR/T&S: [] GBS: [] GC/CT (if indicated): [] testing: Twice weekly at 32 weeks (T2DM) Counseling [] MOD: Anticipate by 39 weeks (T2DM) [] Place of delivery: with primary OB Vaccines [] Flu Shot (Mar-Jun): [] COVID vaccine: [] Tdap (27-36wks): [] RSV vaccine (32-36wks): [] PP HPV vaccine counseling (<=26 yo): Assessment & Plan (08/19/2024 4:23 PM MANAGER GREEN): [x] Co-management vs. [] Full MFM Care; [] Red Team [x] Blue Team Referring Provider: Trent Levin [phone] > Transferring to [facility] 08/30/24. [] or Medicare Insurance [x] Dating Criteria: LMP:05/28/24 JOE:03/04/25 [x] Labs: Rh [A-], Ab [NEG], Rubella [IMM], HIV [NEG], HepBSAg [NEG], HepBSAb [], HepBCAb [], RPR [], Hep C [NEG], Varicella [], GC/CT [] [] Aneuploidy Screening: [] Carrier Screening: [] Hgb electrophoresis: [x] CBC/Hgb: 13.8/40.8/394 [] Early 1hr GTT (if indicated): [] UCx: [] Pap: [x] LD ASA (if indicated): [] EPDS [ ]; PNBHS referral (if indicated): 2nd Trimester [] Anatomy ultrasound: [] CBC/1hr gtt at 24-28wks: [] Rhogam at 28 wks (if Rh neg): A- 3rd Trimester [] CBC/HIV/RPR/T&S: [] GBS: [] GC/CT (if indicated): [] testing: Twice weekly at 32 weeks (T2DM) Counseling [] MOD: Anticipate by 39 weeks (T2DM) [] Place of delivery: with primary OB Vaccines [] Flu Shot (Mar-Jun): [] COVID vaccine: [] Tdap (27-36wks): [] RSV vaccine (32-36wks): [] PP HPV vaccine counseling (<=26 yo): Pre-existing type 2 diabetes mellitus during in first trimester 08/11/2024 Overview (08/25/2024): History & Counseling Diagnosed 2020 History of DKA? no Last hemoglobin A1C: 9.5% on 08/04/24 Pre- regimen: metformin, ozempic MFM counseling: completed 08/19/2024 Dexcom: sent share request on 08/19/24, added to DM Plan Current regimen: 08/25/2024 Glargine insulin 25 units qAM Humalog 7 units before meals > Humalog 10 units before meals - Physician adjusting insulin dosage: MFM [x] Counseling performed [x] Diabetes education [] Recommend weekly review of BG/insulin data to adjust insulin dosing [x] Glucagon prescribed by primary OB [x] Referral to ophthalmology for comprehensive eye exam - last 3 years, will make appointment [] Baseline CMP, UPC [] A1c qTrimester [x] 1st T: 9.5 08/04/24 [] 2nd T: [] 3rd T: [x] First trimester TSH 1.09 [x] ASA starting at 12 weeks gestation [] Baseline EKG, consider maternal TTE - with primary OB [] Specialized anatomy ultrasound at 18-20 weeks [] echocardiogram at 20-22 weeks [] Serial growth scans starting at 24 weeks [] Twice weekly testing starting at 32 weeks [] insulin plan by 32 weeks [] Delivery at 39 0/7-39 6/7 (36 0/7 to 38 6/7 with vascular complications or poorly controlled) Assessment & Plan (08/19/2024 4:22 PM MANAGER GREEN): History Diagnosed 2020 History of DKA? no Last hemoglobin A1C: 9.5% on 08/04/24 Pre- regimen: metformin, ozempic Dexcom: sent share request on 08/19/24, added to DM Current regimen: 08/19/2024 Glargine insulin 25 units qam, Humalog 7 units before meals Counseling 08/19/2024: Reviewed with patient that type 2 diabetes is the most common form of pregestational diabetes and is characterized by peripheral insulin resistance. is generally a state of increased insulin resistance, the one exception being late first trimester when relatively higher levels of estrogen may enhance insulin sensitivity and increase the maternal hypoglycemia, especially when associated with nausea and vomiting. As such, insulin requirements will likely change during and frequent monitoring throughout . This in combination with diabetic education, exercise, and diet control will be necessary to achieve optimal glycemic control. We reviewed that goal blood glucose values are generally fasting a premeal glucose of 95 mg/dL or less and 1 hour postprandial glucose of 140 mg/dL or less. We recommend checking blood sugar fasting, before each meal, and 1 hour after eating. The patient should also check urine ketones when their glucose level exceeds 200 mg/dL and should have glucagon available in case of hypoglycemic episodes. We also reviewed the increased maternal and risks associated with type 2 diabetes in . Discussed that major congenital anomalies (cardiac, neurologic and skeletal) are the leading cause of mortality in pregnancies complicated by diabetes and is directly related to hemoglobin A1C values. An A1c level of 9.5% is associated with a 8.1% anomaly rate, and an 18% rate of miscarriage. Other risks include large for gestational age or small for gestational age infants, delivery, and stillbirth. Maternal risks discussed include exacerbation of diabetes-related complications (particularly retinopathy and nephropathy), hypertensive disorders of , shoulder dystocia, and need for section. Also discussed that outcomes are best with optimal glycemic control. Lastly discussed that insulin drip will likely be required in labor. Plan - Physician adjusting insulin dosage: MFM [x] Counseling performed [x] Diabetes education [] Recommend weekly review of BG/insulin data to adjust insulin dosing [x] Glucagon prescribed by primary OB [x] Referral to ophthalmology for comprehensive eye exam - last 3 years, will make appointment [] Baseline CMP, UPC [] A1c qTrimester [x] 1st T: 9.5 08/04/24 [] 2nd T: [] 3rd T: [x] First trimester TSH 1.09 [x] ASA starting at 12 weeks gestation [] Baseline EKG, consider maternal TTE - with primary OB [] Specialized anatomy ultrasound at 18-20 weeks [] echocardiogram at 20-22 weeks [] Serial growth scans starting at 24 weeks [] Twice weekly testing starting at 32 weeks [] insulin plan by 32 weeks [] Delivery at 39 0/7-39 6/7 (36 0/7 to 38 6/7 with vascular complications or poorly controlled) Chronic hypertension affecting 025 Overview (08/19/2024): Diagnosis: ~2018 Pre- medications: lisinopril Counseling 08/19/2024: We counseled the patient that chronic hypertension is associated with an increased risk of adverse outcome, including growth restriction and stillbirth. Additionally, we discussed that hypertension is associated with development of superimposed preeclampsia with severe features and placental abruption, which can result in iatrogenic delivery in up to 30% of women with mild chronic hypertension. Baseline preeclampsia labs (CBC, creatinine, BUN, AST, ALT) are recommended in all patients with a history of hypertension. A workup for end organ damage is also recommended, including an EKG and UPC ratio. A fundoscopic exam by ophthalmology is recommended as well, if one has not been performed within 12 months. A baby aspirin is recommended at 12 weeks for preeclampsia prophylaxis. Preeclampsia symptoms (headache, scotomata, epigastric pain) were reviewed. We reviewed the course of blood pressures in , that usually patients experience a decrease in systemic pressure in the first trimester, and a gradual rise starting at 28 weeks. Recent data from 10/2021 in the CHAPS study recommend a treatment BP goal of <140/90 antepartum. This study was shown to reduce the risk of maternal preeclampsia with severe features, iatrogenic at less than 35 weeks of gestation, placental abruption, or or while the incidence of birthweight less than the 10th percentile was similar in the groups as were serious maternal and complications. Mildly elevated blood pressure (<150/100) in of patients with chronic hypertension have not been associated with poor outcome in the fetus or the mother. However, a preeclampsia workup would be recommended if her blood pressures is elevated and significantly above her usual baseline or in the severe range for . Current medication regimen: no medications 08/19/2024 Plan: [x] Low dose ASA 81 mg starting at 12 weeks - starting 08/19/2024 [] Baseline labs (CBC, CMP, UPC) - with primary OB needs CMP [] Baseline EKG - with primary OB [] Baseline ECHO (if dx >4yrs or >30) [] Growth scans starting at 24 weeks every 4 weeks [] If on medications, weekly surveillance starting at 32 weeks [] Delivery at 37w0d - 39w6d is recommended, although we discussed the possibility of earlier delivery for uncontrolled hypertension or preeclampsia. Assessment & Plan (08/19/2024 4:20 PM MANAGER GREEN): Diagnosis: ~2018 Pre- medications: lisinopril Counseling 08/19/2024: We counseled the patient that chronic hypertension is associated with an increased risk of adverse outcome, including growth restriction and stillbirth. Additionally, we discussed that hypertension is associated with development of superimposed preeclampsia with severe features and placental abruption, which can result in iatrogenic delivery in up to 30% of women with mild chronic hypertension. Baseline preeclampsia labs (CBC, creatinine, BUN, AST, ALT) are recommended in all patients with a history of hypertension. A workup for end organ damage is also recommended, including an EKG and UPC ratio. A fundoscopic exam by ophthalmology is recommended as well, if one has not been performed within 12 months. A baby aspirin is recommended at 12 weeks for preeclampsia prophylaxis. Preeclampsia symptoms (headache, scotomata, epigastric pain) were reviewed. We reviewed the course of blood pressures in , that usually patients experience a decrease in systemic pressure in the first trimester, and a gradual rise starting at 28 weeks. Recent data from 10/2021 in the CHAPS study recommend a treatment BP goal of <140/90 antepartum. This study was shown to reduce the risk of maternal preeclampsia with severe features, iatrogenic at less than 35 weeks of gestation, placental abruption, or or while the incidence of birthweight less than the 10th percentile was similar in the groups as were serious maternal and complications. Mildly elevated blood pressure (<150/100) in of patients with chronic hypertension have not been associated with poor outcome in the fetus or the mother. However, a preeclampsia workup would be recommended if her blood pressures is elevated and significantly above her usual baseline or in the severe range for . Current medication regimen: no medications 08/19/2024 Plan: [x] Low dose ASA 81 mg starting at 12 weeks - starting 08/19/2024 [] Baseline labs (CBC, CMP, UPC) - with primary OB needs CMP [] Baseline EKG - with primary OB [] Baseline ECHO (if dx >4yrs or >30) [] Growth scans starting at 24 weeks every 4 weeks [] If on medications, weekly surveillance starting at 32 weeks [] Delivery at 37w0d - 39w6d is recommended, although we discussed the possibility of earlier delivery for uncontrolled hypertension or preeclampsia. History of LEEP (loop electr osurgical excision procedure) of cervix complicating in first trimester 08/11/2024 Overview (08/19/2024): Counseling 08/19/2024: While some studies have suggested an increased risk of delivery after excisional procedures for cervical dysplasia, the best quality data do not support an association between LEEP procedure and delivery. It is important to pursue cervical dysplasia treatment in order to avoid progression to cancer and excisional procedures remain the best option for high grade dysplasia. There is some evidence that the underlying cervical disease itself may be a contributor to risk. We recommend routine cervical length screening for those with a history of LEEP and, if normal, no further cervical length screening is recommended. Assessment & Plan (08/19/2024 4:21 PM MANAGER GREEN): Counseling 08/19/2024: While some studies have suggested an increased risk of delivery after excisional procedures for cervical dysplasia, the best quality data do not support an association between LEEP procedure and delivery. It is important to pursue cervical dysplasia treatment in order to avoid progression to cancer and excisional procedures remain the best option for high grade dysplasia. There is some evidence that the underlying cervical disease itself may be a contributor to risk. We recommend routine cervical length screening for those with a history of LEEP and, if normal, no further cervical length screening is recommended. Estimated Date of Delivery Comme nts Yes 03/04/2025 Based on last me nstrual period of 05/28/2024 (Approximate) Social History Tobacco Use Types Packs/Day Years Used Date Smoking Tobacco: Never Smokeless Tobacco: Never Tobacco Cessation:Counseling Given: Not Answered Estimated Date of Delivery Comme nts Yes 03/04/2025 Based on last me nstrual period of 05/28/2024 (Approximate) Sex and Gender Information Value Date Recorded Sex Assigned at Not on file Legal Sex Female 9:48 AM MANAGER GREEN Gender Identity Not on file Sexual Orientation Not on file Last Filed Vital Signs Vital Sign Reading Time Taken Comments Blood Pressure 129/80 08/19/2024 1:19 PM MANAGER GREEN Pulse 80 08/19/2024 1:19 PM MANAGER GREEN Temperature - - Respiratory Rate - - Oxygen Saturation - - Inhaled Oxygen Concentration - - Weight 79.4 kg (175 lb) 08/19/2024 1:19 PM MANAGER GREEN Height 160 cm (5' 3 ) 08/19/2024 1:19 PM MANAGER GREEN Body Mass Index 31 08/19/2024 1:19 PM MANAGER GREEN Plan of Treatment Not on file Procedures Procedure Name Priority Date/Time Associated Diagnosis Comments US OB LIMITED Schedule Routine, Read Routine (OP Routine) 08/19/2024 12:49 PM MANAGER GREEN Unspecified high-risk ABO/RH Routine 08/03/2024 CBC WITHOUT DIFFERENTIAL Routine 08/03/2024 ANTIBODY SCREEN Routine 08/03/2024 RUBELLA IGG Routine 08/03/2024 HEPATITIS B SURFACE ANTIGEN Routine 08/03/2024 HIV 1/2 ANTIBODY PLUS P24 ANTIGEN Routine 08/03/2024 from Last 3 Months Results * US Ob Limited (08/19/2024 12:49 PM MANAGER GREEN) Anatomical Region Laterality Modality Abdomen N/A Ultrasound 08/19/2024 12:5 1 PM MANAGER GREEN Impressions 08/19/2024 1:31 PM MANAGER GREEN A single viable intrauterine was seen. Cardiac motion was observed. The CRL corresponded to reported dating criteria. The adnexa appeared normal bilaterally. Narrative Procedure Note Gracie Fierro MD - 08/19/2024 IMPRESSION: A single viable intrauterine was seen. Cardiac motion wasobserved. The CRL corresponded to reported dating criteria. The adnexaappeared normal bilaterally. Lucy Cox MD IMG OB US PROCEDURES Final Result * HIV 1/2 Antibody plus p24 Antigen Blood (08/03/2024) SCRIBED HIV P24 Nonreactive Nonreactive , Invalid Blood Tani Hayward MD LAB MICROBIOLOGY - GENERAL O RDERABLES Final Result * ABO/Rh (08/03/2024) SCRIBED ABO/Rh A- Blood Result [facility] Tani Hayward MD LAB BLOOD BANK TEST ORDERABL ES Final Result * Rubella IgG antibody Blood (08/03/2024) Rubella IgG Scribed Immune Blood Result [facility] Tani Hayward MD LAB MICROBIOLOGY - GENERAL O RDERABLES Final Result * Hepatitis B Surface Antigen Blood (08/03/2024) SCRIBED HBsAg Nonreactive Nonreactive , Invalid Blood Tani Hayward MD LAB MICROBIOLOGY - GENERAL O RDERABLES Final Result * CBC without differential (08/03/2024) Hct 40.8 Hgb 13.8 Plt 394 Blood Tani Hayward MD LAB BLOOD ORDERABLES Final R esult * Antibody screen (08/03/2024) SCRIBED Indirect Antiglobulin neg Blood Tani Hayward MD LAB BLOOD BANK TEST ORDERABL ES Final Result from Last 3 Months Insurance [place] Care Teams Deck And Hull Assembler Relationship Specialty Start Date End Date No, Physician PCP - General 08/04/24
--- OUTSIDE RECORDS SUMMARY | 2024-08-27 10:30 | XMS_ITS | Encounter Summary ---
Author Organization [facility] Address [address] [place] [id number] Care Team Providers Care Burial Vault Maker Name Role Phone Randall Salgado MD Unavailable [phone] Ranjan Gerard MD Primary Care Provider + Encounter Details Date Type Department Care Team (Late Contact Info) Description 11/25/2023 [employer] Message [email or web address] [facility] [employer] [address] [place] [address] [email or web address], [facility] Provider Proxy Request Social History Tobacco Use Types Packs/Day Years [...] Date Recorded Patient Health Questionnaire-2 Score 0 11/25/2023 Comments No Sex and Gender Information Value Date Recorded Sex Assigned at Not on file Legal Sex Female 8:52 AM CDT Gender Identity Not on file Sexual Orientation Not on file documented as of this encounter Plan of Treatment Not on file documented as of this encounter Visit Diagnoses Not on filedocumented in this encounter Care Teams Burial Vault Maker Relationship Specialty Start Date End Date Ranjan Gerard MD [address] [facility] [address] [place] [phone] PCP - General FAMILY PRACTICE 11/19/23 Randall Salgado MD [address] [place] [id number] [place] [employer] CARDIOVASCULAR DISEASE 10/24/18 documented as of this encounter
--- OUTSIDE RECORDS SUMMARY | 2024-08-27 10:30 | XMS_ITS | Clinical Summary ---
Author Organization [facility] Address [address] [place] [address] Care Team Providers Care Auxiliary Plant Operator Name Role Phone No, Physician Primary Care Provider [phone] Allergies No known active allergies Medications insulin [...] cardiology Assessment & Plan (08/19/2024 4:24 PM PLANT OPERATOR/SHIFT SUPERVISOR): History: PV stenosis in prior daughter was [...] Overview (08/19/2024): [x] Co-management vs. [] Full [facility] Care; [] Red Team [x] Blue Team Referring Provider: Trent Levin [phone] > Transferring to [facility] 08/30/24. [] or Medicare Insurance [x] Dating [...] yo): Assessment & Plan (08/19/2024 4:23 PM PLANT OPERATOR/SHIFT SUPERVISOR): [x] Co-management vs. [] Full [facility] Care; [] Red Team [x] Blue Team Referring Provider: Trent Levin [phone] > Transferring to [facility] 08/30/24. [] or Medicare Insurance [x] Dating [...] controlled) Assessment & Plan (08/19/2024 4:22 PM PLANT OPERATOR/SHIFT SUPERVISOR): History Diagnosed 2020 History of DKA? no [...] 3 years, will make appointment [] Baseline [facility] [] A1c qTrimester [x] 1st T: [...] preeclampsia. Assessment & Plan (08/19/2024 4:20 PM PLANT OPERATOR/SHIFT SUPERVISOR): Diagnosis: ~2018 Pre- medications: lisinopril Counseling 08/19/2024: [...] recommended. Assessment & Plan (08/19/2024 4:21 PM PLANT OPERATOR/SHIFT SUPERVISOR): Counseling 08/19/2024: While some studies have suggested [...] last me nstrual period of 05/28/2024 (Approximate) Encounters Date Type Department Care Team Description 08/25/2024 Documentation [facility] [address] [place] [address] Sherry Luna MD Glycemic control - CGM review 08/19/2024 1:45 PM PLANT OPERATOR/SHIFT SUPERVISOR Telemedicine [facility] Obstetrics and Gynecology [address] [place] [address] Chronic hypertension affecting (Primary Dx); Unspecified high-risk ; Pre-existing type 2 diabetes mellitus during in first trimester; Supervision of high risk in first trimester; Previous with congenital heart defect, currently , first trimester 08/19/2024 1:15 PM PLANT OPERATOR/SHIFT SUPERVISOR Ancillary Procedure [facility] Obstetrics and Gynecology [address] [place] [address] Unspecified high-risk 08/18/2024 Telephone [facility] Obstetrics and Gynecology [address] [place] [phone] Araceli Tee 08/07/2024 Telephone [facility] Maternal- Medicine [address] [place] [address] Health 7th Floor [address] [place] [address] Rita Henao CMA Scheduling US/OB Consult from Last 3 Months Surgical History Surgery Date Site/Laterality Comments CERVICAL BIOPSY W/ LOOP ELEC TRODE EXCISION 07/22/2021 - 07/21/2022 Medical History Medical History Date Comments Type 2 diabetes mellitus (HCC) Chronic hypertension Depression Anxiety Social History Tobacco Use Types Packs/Day Years Used Date Smoking Tobacco: Never Smokeless Tobacco: Never Tobacco Cessation:Counseling Given: Not Answered Estimated Date of Delivery Comme nts Yes 03/04/2025 Based on last me nstrual period of 05/28/2024 (Approximate) Sex and Gender Information Value Date Recorded Sex Assigned at Not on file Legal Sex Female 9:48 AM PLANT OPERATOR/SHIFT SUPERVISOR Gender Identity Not on file Sexual Orientation Not on file Obstetrics History Para Term AB IAB SAB Ectopic Multiple Livin g Live Births 2 1 1 1 1 Date Outcome GA Total Labor Labor/2nd/3rd Weight Sex Type Anes PTL Aristeo A1 A5 Name Clin 04/12 Term 37w 0d 2.438 kg (5 lb 6 oz) F Vag-S pont Epidura l Living Complications:None Current Summary Episode Dates Number of Fetuses Estimated Date of Delivery 08/11/2024 - Present (08/27/2024) 03/04/2025 (set by Kermit Haywood RMA on 08/11/2024 based on Last Menstrual Period on 05/28/2024 (Approximate)) Dating Summary Based On JOE GA Diff Last Menstrual Period on 05/28/2024 (Approximate ) 03/04/2025 Working Ultrasound on 08/03/2024 03/04/2025 Same GA:9w4d Comment:CRL report scanned u [employer], p19/21 Vitals Pregravid Weight Height TWG (As of 08/27/2024) Pregrav id BMI 160 cm (5' 3 ) Notes Progress Notes - Theo e - 08/19/2024 - GA:11w6d 08/19/2024 - wd - Gracie Fierro MD Maternal Medicine Consult Note This was a telemedicine visit with Penny and her mother which took place via Real-time video connection ([employer], WeatherBug or similar).During the visit, I was located in the office and the patient was located in our [place] office in the [facility]. My visit with the patient started at 1:37 and ended at 1:57. Total encounter time was 30 minutes, which includes time spent today on pre charting, the patient encounter, and post charting. The patient: has been informed that the visit may not be secure and acknowledged the information. The option of participating in a telephone or video visit during the [facility] emergency was explained to them. After being given an opportunity to ask questions about and discuss this type of visit, they verbally consented to proceeding with the telephone/video visit and understand that this service replaces an office visit. 08/19/2024 Reason for Consult: type 2 diabetes Requesting Provider: Dr. Tani Hayward MD Dear Dr. Hayward, We had the pleasure of seeing your patient Penny Larkin in our office today. As you know, she is a 33 y.o. at 11w6d by LMP consistent with 1st trimester Ultrasound here today for a consult regarding type 2 diabetes. Her is also complicated by CHTN, hx LEEP, prior child with pulmonary stenosis. Today she is doing well, she reports no complaints. Denies LAP or VB. Had some spotting earlier 1x but stopped. Diabetes was diagnosed in 2020 - was started on metformin, did very well. Lost weight and glycemic control improved. Ozempic was started after that and had great improvement. Insurance was not covering fully and it became expensive and was taken off. Was started back on insulin 2 weeks ago. Has Dexcom. Had hypoglycemia to [address] clinic and got a coffee. CHTN was diagnosed 6-7 years ago, was previously on lisinopril and stopped with . BPs. 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 Doing well now. Transferring to [facility] 08/30/24. OB History Para Term AB Living 2 1 1 1 SAB IAB Ectopic Multiple Live Births 1 # Outcome Date GA Lbr Ron/2nd Weight Sex Type Anes PTL Lv 2 Current 1 Term 04/12/13 37w0d 2.438 kg (5 lb 6 oz) F Vag-Spont EPI ARISTEO Past Gynecologic History: Prior STIs: Trichmonas treated in the past History of abnormal pap: had LEEP 2 years ago Last pap smear: 2023 NILM per patient report Patient's last menstrual period was 05/28/2024 (approximate). Denies history of uterine anomalies or fibroids. Denies history of blood transfusion. Past Medical History: Diagnosis Date Anxiety Chronic hypertension Depression Type 2 diabetes mellitus (HCC) Past Surgical History: Procedure Laterality Date CERVICAL BIOPSY W/ LOOP ELECTRODE EXCISION 2021 Medications: Glargine insulin 25 units qam Humalog 7 units before meals PNV No Known Allergies Social History Tobacco Use Smoking status: Never Smokeless tobacco: Never Substance and Sexual Activity Drug use: None Sexual activity: None Alcohol Use: Not At Risk (10/01/2022) Received from [facility]UD[facility] Frequency of Alcohol Consumption: Never Average Number of Drinks: Patient does not drink Frequency of Binge Drinking: Never 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 Neural tube defects: No Down syndrome or other chromosomal anomalies: No Hemophilia, sickle cell, bleeding/clotting disorder: No Muscular dystrophy: No Cystic fibrosis: No Intellectual disability or Fragile X: No Desha disease: No Other defects or genetic disorders: prior daughter with pulmonary stenosis Dating: Estimated Date of Delivery: 03/04/25 based on LMP c/w 9w CRL Review of Systems Review of systems per HPI and otherwise all systems are negative Physical Exam Vitals BP 129/80 Pulse 80 Ht 160 cm (5' 3 ) Wt 175 lb (79.4 kg) LMP 05/28/2024 (Approximate) BMI 31.00 kg/m General: Healthy, alert, active, cooperative, and in no distress The rest of the exam was deferred due to the consultative nature of this visit. Ultrasound 08/19/2024: A single viable intrauterine was seen. Cardiac motion was observed. The CRL corresponded to reported dating criteria. The adnexa appeared normal bilaterally. Please see the separate report for full details Assessment: Ms. Penny Larkin is a 33 y.o. at 11w6d by LMP consistent with 1st trimester Ultrasound here today for a consult regarding type 2 diabetes. Her is also complicated by CHTN, hx LEEP, prior child with pulmonary valve stenosis. Recommendations: Chronic hypertension affecting Diagnosis: ~2018 Pre- medications: lisinopril Counseling 08/19/2024: [...] hypertension or preeclampsia. History of LEEP (loop electrosurgical excision procedure) of cervix complicating in first trimester Counseling 08/19/2024: While some studies have suggested [...] no further cervical length screening is recommended. Pre-existing type 2 diabetes mellitus during in first trimester History Diagnosed 2020 History of DKA? no [...] 6/7 with vascular complications or poorly controlled) Supervision of high risk in first trimester [x] Co-management vs. [] Full MFM Care; [] Red Team [x] Blue Team Referring Provider: Trent Levin [id number] > Transferring to [facility] 08/30/24. [] or Medicare Insurance [x] Dating [...] with primary OB Vaccines [] Flu Shot (Sep-Jun): [] COVID vaccine: [] Tdap (27-36wks): [] RSV vaccine (32-36wks): [] PP HPV vaccine counseling (<=26 yo): Previous with congenital heart defect, currently , first trimester History: PV stenosis in prior daughter was [...] weeks [] Offer echocardiogram with pediatric cardiology Thank you for the opportunity to be involved in the care of your patient. Should you have any further questions or concerns, please do not hesitate to call us. Summary of visit: - T2DM: Enrolling in Dexcom remote CGM review will review within next week - Starting ASA 81 mg tomorrow - OB/ER warnings reviewed - Follow up 4 weeks for MFM telehealth visit Gracie Fierro MD Auxiliary Plant Operator Division of Maternal- Medicine T OPERATOR/SHIFT SUPERVISOR Progress Notes - Abstract - 08/11/2024 - GA:10w5d 08/11/2024 - 10w5d - Kermit Sweeney RMA Ob records in media T OPERATOR/SHIFT SUPERVISOR Last Filed Vital Signs Vital Sign Reading Time Taken Comments Blood Pressure 129/80 08/19/2024 1:19 PM PLANT OPERATOR/SHIFT SUPERVISOR Pulse 80 08/19/2024 1:19 PM PLANT OPERATOR/SHIFT SUPERVISOR Temperature - - Respiratory Rate - - Oxygen Saturation - - Inhaled Oxygen Concentration - - Weight 79.4 kg (175 lb) 08/19/2024 1:19 PM PLANT OPERATOR/SHIFT SUPERVISOR Height 160 cm (5' 3 ) 08/19/2024 1:19 PM PLANT OPERATOR/SHIFT SUPERVISOR Body Mass Index 31 08/19/2024 1:19 PM PLANT OPERATOR/SHIFT SUPERVISOR Plan of Treatment Health Maintenance Due Date Last Done Comments Cervical Cancer Screening 1991 Depression Screening 1991 Hepatitis C Screening 1991 Varicella Vaccines (1 of 2 - 13+ 2-dose series) 11/12/2004 Regular Well Visit/Exam 18-64 11/12/2009 Covid-19 Vaccine ( season) 2024 10/06/2020, 09/07/2020 DTaP/Tdap/Td Vaccine (9 - Td or Tdap) 06/06/2033 06/06/2023, 07/28/2015, 01/31/2006, Additional history exists HPV Vaccines Completed 09/14/2020, 04/22, 03/01/2020 Influenza Vaccine Completed 05/25/2024, , 04/21/2021, Additional history exists Pneumococcal vaccine <65 Aged Out No longer eligible based on patient's age to complete this topic Procedures Procedure Name Priority Date/Time Associated Diagnosis Comments US OB LIMITED Schedule Routine, Read Routine (OP Routine) 08/19/2024 12:49 PM PLANT OPERATOR/SHIFT SUPERVISOR Unspecified high-risk ABO/RH Routine 08/03/2024 CBC WITHOUT DIFFERENTIAL Routine 08/03/2024 ANTIBODY SCREEN Routine 08/03/2024 RUBELLA IGG Routine 08/03/2024 HEPATITIS B SURFACE ANTIGEN Routine 08/03/2024 HIV 1/2 ANTIBODY PLUS P24 ANTIGEN Routine 08/03/2024 from Last 3 Months Results * US Ob Limited (08/19/2024 12:49 PM PLANT OPERATOR/SHIFT SUPERVISOR) Anatomical Region Laterality Modality Abdomen N/A Ultrasound 08/19/2024 12:5 1 PM PLANT OPERATOR/SHIFT SUPERVISOR Impressions 08/19/2024 1:31 PM PLANT OPERATOR/SHIFT SUPERVISOR A single viable intrauterine was seen. Cardiac motion was observed. The CRL corresponded to reported dating criteria. The adnexa appeared normal bilaterally. Narrative Procedure Note Gracie Fierro MD - 08/19/2024 IMPRESSION: A single viable intrauterine was seen. Cardiac motion wasobserved. The CRL corresponded to reported dating criteria. The adnexaappeared normal bilaterally. us Lucy Cox MD IMG OB US PROCEDURES Final Result * HIV 1/2 Antibody plus p24 Antigen Blood (08/03/2024) SCRIBED HIV P24 Nonreactive Nonreactive , Invalid Blood us Tani Hayward MD LAB MICROBIOLOGY - GENERAL O RDERABLES Final Result * ABO/Rh (08/03/2024) SCRIBED ABO/Rh A- Blood Tani Hayward MD LAB BLOOD BANK TEST ORDERABL ES Final Result * Rubella IgG antibody Blood (08/03/2024) Rubella IgG Scribed Immune Blood Tani Hayward MD LAB MICROBIOLOGY - [...] BL CHOICE PRF PPO [place] Care Teams Auxiliary Plant Operator Relationship Specialty Start Date End Date No, Physician PCP - General 08/04/24
== END 2024-08-27 10:02 | disposition home or self-care (01) ==
LOC: ANHIMG 10:06
PROVIDERS: Visit Provider Obstetrics & Gynecology
DX: O20.0 Threatened abortion (principal); Z3A.00 Weeks of gestation of pregnancy not specified
CPT/HCPCS: 76801

== ENCOUNTER 2024-12-24 09:07 | Outpatient (RCR) | payer BC, MEDICAID, SELFPAY ==
[2024-12-24 09:42] LABS: Hematocrit 36.1 % (37.0-47.0); Hemoglobin 11.9 g/dL (12.0-15.0)
--- OUTSIDE RECORDS SUMMARY | 2024-12-24 09:46 | XMS_ITS | Encounter Summary ---
Author Organization [facility] Address [address] [place] [address] Phone Care Team Providers Care Call Center Trainer Name Role Phone No, Physician Primary Care Provider [phone] Reason for Visit * Diagnostic Imaging (Routine) - Closed Specialty Diagnoses / Procedures Referred By Contac t Referred To Contact Diagnoses Chronic hypertension affecting Pre-existing type 2 diabetes mellitus during in second trimester Supervision of high risk in second trimester Procedures US Ob Follow Up Tani Hayward MD [address] [place] [address] Phone: tel: fax: [facility] (All Locations) Referral ID Status Reason Start Date Expiration Date Visits Re quested Visits Authorized [id number] Closed 11/24/2024 12/24/2025 1 1 Encounter Details Date Type Department Care Team (Latest Contact Info) Description 12/23/2024 10:30 AM CDT Ancillary Procedure [facility] Physicians [facility] Obstetrics and Gynecology [address] [place] [id number] Chronic hypertension affecting ; Pre-existing type 2 diabetes mellitus during in second trimester; Supervision of high risk in second trimester Social History Tobacco Use Types Packs/Day Years Used Date Smoking Tobacco: Never Smokeless Tobacco: Never Estimated Date of Delivery Comme nts Yes 03/04/2025 Based on last me nstrual period of 05/28/2024 (Approximate) Sex and Gender Information Value Date Recorded Sex Assigned at Not on file Legal Sex Female 9:48 AM BILL CUTTER Gender Identity Not on file Sexual Orientation Not on file documented as of this encounter Plan of Treatment Not on file documented as of this encounter Procedures Procedure Name Priority Date/Time Associated Diagnosis Comments US OB FOLLOW UP Schedule Routine, Read Routine (OP Routine) 12/23/2024 10:24 AM CDT Chronic hypertension affecting Pre-existing type 2 diabetes mellitus during in second trimester Supervision of high risk in second trimester documented in this encounter Results * US Ob Follow Up (12/23/2024 10:24 AM CDT) Fetus# Fetus1 VIEWPOINT Estimated Weight 1,276 g&grams VIEWPOINT Placenta Details posterior, Previa-no VIEWPOINT Presentation Breech VIEWPOINT Anatomical Region Laterality Modality Abdomen N/A Ultrasound 12/23/2024 10:2 4 AM CDT Impressions 12/23/2024 11:01 AM CDT IUP at 29w 6d who presents for growth assessment in setting of DM and HTN. 1. Breech presentation. 2. The interval growth has been appropriate. However, the EFW plots at the lower limit of normal at the 10%ile. The AC is at the 39%ile. 3. The amniotic fluid volume is normal. Narrative Procedure Note Ava Osborn MD - 12/23/2024 IMPRESSION: IUP at 29w 6d who presents for growth assessment in setting of DMand HTN. 1. Breech presentation. 2. The interval growth has been appropriate. However, the EFW plotsat the lower limit of normal at the 10%ile. The AC is at the 39%ile. 3. The amniotic fluid volume is normal. us Tani Hayward MD IMG OB US PROCEDURES Final R esult documented in this encounter Visit Diagnoses Diagnosis Chronic hypertension affecting Pre-existing type 2 diabetes mellitus during in second trimester Supervision of high risk in second trimester documented in this encounter Care Teams Call Center Trainer Relationship Specialty Start Date End Date No, Physician PCP - General 08/04/24 documented as of this encounter
--- OUTSIDE RECORDS SUMMARY | 2024-12-24 09:46 | XMS_ITS | Data Portability ---
Author Organization [facility] [place] Address [address] [place] [address] Care Team Providers Care Hydrographer Name Role Phone ABRIL ROWLEY Primary Care Provider Assessment Encounter Date Assessment Date Assessment LastModified by Organization Details LastModified Time 11/04/2024 11/04/2024 Patient is ___weeks . Discussed plan. [email or web address] Not available 11/04/2024 12:26:14 12/19/2024 12/19/2024 Patient is ___weeks . Discussed plan. [email or web address] Not available 12/19/2024 10:39:02 Plan of Treatment Reminders Order Date Submit Date Provider Last Modified By Organization Details Last Modified Time Details Appointments OB ROUTINE 2024 08:45A Loretta ADAMS MD Not available Not available Not available Lab Rh immune globulin screening - Fax results to [phone] [address] (Lab)[address], [address], 12/19/2024 10:44:24 type + screen, blood - Fax results to [address] (Lab), [address] [place] [address], [address], 12/19/2024 10:44:24 HIV (1+2) Ab screen, serum - Fax results to [phone] [address] (Lab), [address] [facility] [address], [place], [address], 12/19/2024 10:44:24 hemoglobi n + hematocri t, blood - Fax results to [address] (Lab), [address] [facility] [address], [place], [address], 12/19/2024 10:44:24 glucose tolerance test, gestation al, 1-hour - Fax results to [address] (Lab), [address] [facility] [address], [place], [address], 12/19/2024 10:44:24 CBC w/ diff [address] [facility], [address] [place], [address], 10/14/2024 04:19:24 CMP, serum or plasma [address] [facility], [address] [place], [address], 10/08/2024 04:47:50 protein:c reatinine ratio, urine [address] [facility], [address] [place], [address], 10/08/2024 04:47:50 CBC w/ diff [address] [facility], [address] [place], [address], 09/16/2024 04:06:44 CMP, serum or plasma [address] [facility], [address] [place], [address], 09/16/2024 04:06:44 uric acid, serum or plasma [address] [facility], [address], [place], [address], 09/16/2024 04:06:44 protein:c reatinine ratio, urine [address] [facility], [address], [place], [address], 09/16/2024 04:06:44 Referral None recorded. Procedures None recorded. Surgeries None recorded. Imaging electroca rdiogram [address] [facility], [address], [place], [address], 12/23/2024 17:16:34 US, obstetric , limited 2024 025 [email or web address] [place], [facility] [address], [address], [place], [address], 09/09/2024 19:11:46 Medication Orders None recorded. Patient TargetsNo targets recorded. Patient InstructionsNo instructions recorded. Reason for Referral None Reported. Results Created Date Observation Date Name Description Value Unit Range Abnormal Flag Note LastModifiedBy Organization Detail LastModifiedTime 10/08/1910/07/2024 CBC W/DIF F WBC 13.0 10'3/ uL 3.5-10 .5 high Not Available [facility] (Lab) [address], [place], [address], 10/08/2024 04:47:49 10/08/19 25 10/07/2024 CBC W/DIF F RBC 4.17 10'6/ uL (based on docume nted legal sex) 3.80-5 .20 Not Available [facility] (Lab) [address], [place], [address], 10/08/2024 04:47:49 10/08/19 25 10/07/2024 CBC W/DIF F HGB 12.5 g/dL (based on docume nted legal sex) 11.6-1 5.4 Not Available [facility] (Lab) [address], [place], [address], 10/08/2024 04:47:49 10/08/19 25 10/07/2024 CBC W/DIF F HCT 39.4 % (based on docume nted legal sex) 34.0-4 5.0 Not Available [facility] (Lab) [address], [place], [address], 10/08/2024 04:47:49 10/08/19 25 10/07/2024 CBC W/DIF F MCV 94.5 fL 80.0-9 9.0 Not Available [facility] (Lab) [address], [place], [address], 10/08/2024 04:47:49 10/08/19 25 10/07/2024 CBC W/DIF F MCH 30.0 pg 27.0-3 4.0 Not Available [facility] (Lab) [address], [place], [address], 10/08/2024 04:47:49 10/08/19 25 10/07/2024 CBC W/DIF F MCHC 31.7 g/dL 32.0-3 5.5 low Not Available [facility] (Lab) [address], [place], [address], 10/08/2024 04:47:49 10/08/19 25 10/07/2024 CBC W/DIF F RDW 12.9 % 11.0-1 5.0 Not Available [facility] (Lab) [address], [place], [address], 10/08/2024 04:47:49 10/08/19 25 10/07/2024 CBC W/DIF F plt 393 10'3/ uL 150-40 0 Not Available [facility] (Lab) [address] [place], [address], 10/08/2024 04:47:49 10/08/19 25 10/07/2024 CBC W/DIF F MPV 9.7 fL 8.8-12 .1 Not Available [facility] (Lab) [address] [facility], [place], [address], 10/08/2024 04:47:49 10/08/19 25 10/07/2024 CBC W/DIF F neutrophils 71.9 % 34.0-7 3.0 Not Available [facility] (Lab) [address] [place], [address], 10/08/2024 04:47:49 10/08/19 25 10/07/2024 CBC W/DIF F lymphocytes 20.0 % 15.0-5 0.0 Not Available [facility] (Lab) [address] [facility], [place], [address], 10/08/2024 04:47:49 10/08/19 25 10/07/2024 CBC W/DIF F monocytes 5.7 % 1.0-15 .0 Not Available [facility] (Lab) [address] [facility], [place], [address], 10/08/2024 04:47:49 10/08/19 25 10/07/2024 CBC W/DIF F eosinophils 1.5 % 0.0-8. 0 Not Available [facility] (Lab) [address] [place], [address], 10/08/2024 04:47:49 10/08/19 25 10/07/2024 CBC W/DIF F basophils 0.3 % 0.0-2. 0 Not Available [facility] (Lab) [address] [place], [address], 10/08/2024 04:47:49 10/08/19 25 10/07/2024 CBC W/DIF F immature granulocytes 0.6 % no define d refere nce range Immat ure Granu locyt es (IG) repre sents autom ated enume ratio n of Metam yeloc ytes, Myelo cytes and Promy elocy thomas when IG is < 5%. Blast s are not inclu ded in IG and repor florentino separ ately if prese nt. Not Available [facility] (Lab) [address] [facility], [place], [address], 10/08/2024 04:47:49 10/08/19 25 10/07/2024 CBC W/DIF F absolute neutrophils 9.4 10'3/ uL 1.5-8. 0 high Not Available [facility] (Lab) [address] [facility], [place], [address], 10/08/2024 04:47:49 10/08/19 25 10/07/2024 CBC W/DIF F absolute lymphocytes 2.6 10'3/ uL 1.0-4. 0 Not Available [facility] (Lab) [address] [facility], [place], [address], 10/08/2024 04:47:49 10/08/19 25 10/07/2024 CBC W/DIF F absolute monocytes 0.7 10'3/ uL 0.2-1. 0 Not Available [facility] (Lab) [address] [facility], [place], [address], 10/08/2024 04:47:49 10/08/19 25 10/07/2024 CBC W/DIF F absolute eosinophils 0.2 10'3/ uL 0.0-0. 6 Not Available [facility] (Lab) [address] [facility], [place], [address], 10/08/2024 04:47:49 10/08/19 25 10/07/2024 CBC W/DIF F absolute basophils 0.0 10'3/ uL 0.0-0. 3 Not Available [facility] (Lab) [address] [facility], [place], [address], 10/08/2024 04:47:49 10/08/19 25 10/07/2024 CBC W/DIF F absolute immature granulocytes 0.1 10'3/ uL 0.00-0 .10 Refer ence range s for nonbi nary/ inter sex or unspe cifie d gende r patie nts have not been estab lishe d. Mirtha redding refer to the maría elenao wing table for range s estab lishe d for cisge nder patie nts and evalu ate in the clini mil james xt of the indiv idual patie nt: https ://la and book. nm.or g/gen derx Not Available [facility] (Lab) [address] [facility], [place], [address], 10/08/2024 04:47:49 10/08/19 25 10/07/2024 CMP(C OMPRE HENSI VE METAB OLIC PANEL ) sodium 137 mmol/ L 133-14 6 Not Available [facility] (Lab) [address] [place], [address], 10/08/2024 04:47:50 10/08/19 25 10/07/2024 CMP(C OMPRE HENSI VE METAB OLIC PANEL ) potassium 3.9 mmol/ L 3.5-5. 1 Not Available [facility] (Lab) [address] [place], [address], 10/08/2024 04:47:50 10/08/19 25 10/07/2024 CMP(C OMPRE HENSI VE METAB OLIC PANEL ) chloride 102 mmol/ L 98-107 Not Available [facility] (Lab) [address] [place], [address], 10/08/2024 04:47:50 10/08/19 25 10/07/2024 CMP(C OMPRE HENSI VE METAB OLIC PANEL ) carbon dioxide 25 mmol/ L 21-31 Not Available [facility] (Lab) [address] [place], [address], 10/08/2024 04:47:50 10/08/19 25 10/07/2024 CMP(C OMPRE HENSI VE METAB OLIC PANEL ) anion gap 10 mmol/ L 4-13 Not Available [facility] (Lab) [address] [place] [facility] [place], [address], 10/08/2024 04:47:50 10/08/19 25 10/07/2024 CMP(C OMPRE HENSI VE METAB OLIC PANEL ) blood urea nitrogen 8 mg/dL 7-25 Not Available [facility] (Lab) [address] [facility], [place], [address], 10/08/2024 04:47:50 10/08/19 25 10/07/2024 CMP(C OMPRE HENSI VE METAB OLIC PANEL ) creatinine 0.50 mg/dL 0.60-1 .30 low Not Available [facility] (Lab) [address] [facility], [place], [address], 10/08/2024 04:47:50 10/08/19 25 10/07/2024 CMP(C OMPRE HENSI VE METAB OLIC PANEL ) egfrcr (CKD-epi 2020) >90 mL/mi n/1.7 3_m2 >=60 Not Available [facility] (Lab) [address] [facility], [place], [address], 10/08/2024 04:47:50 10/08/19 25 10/07/2024 CMP(C OMPRE HENSI VE METAB OLIC PANEL ) calcium 9.1 mg/dL 8.3-10 .5 Not Available [facility] (Lab) [address] [place], [address], 10/08/2024 04:47:50 10/08/19 25 10/07/2024 CMP(C OMPRE HENSI VE METAB OLIC PANEL ) glucose 88 mg/dL 70-100 Not Available [facility] (Lab) [address] [place], [address], 10/08/2024 04:47:50 10/08/19 25 10/07/2024 CMP(C OMPRE HENSI VE METAB OLIC PANEL ) protein, total 7.0 g/dL 6.4-8. 3 Not Available [facility] (Lab) [address] [facility], [place], [address], 10/08/2024 04:47:50 10/08/19 25 10/07/2024 CMP(C OMPRE HENSI VE METAB OLIC PANEL ) albumin 3.8 g/dL 3.5-5. 0 Not Available [facility] (Lab) [address] [facility], [place], [address], 10/08/2024 04:47:50 10/08/19 25 10/07/2024 CMP(C OMPRE HENSI VE METAB OLIC PANEL ) ALT 7 units /L 9-43 low Not Available [facility] (Lab) [address] [facility], [place], [address], 10/08/2024 04:47:50 10/08/19 25 10/07/2024 CMP(C OMPRE HENSI VE METAB OLIC PANEL ) alkaline phosphatase 67 units /L 34-104 Not Available [facility] (Lab) [address] [facility], [place], [address], 10/08/2024 04:47:50 10/08/19 25 10/07/2024 CMP(C OMPRE HENSI VE METAB OLIC PANEL ) AST 12 units /L 13-39 low Not Available [facility] (Lab) [address] [place], [address], 10/08/2024 04:47:50 10/08/19 25 10/07/2024 CMP(C OMPRE HENSI VE METAB OLIC PANEL ) bilirubin, total 0.2 mg/dL 0.2-1. 2 Not Available [facility] (Lab) [address] [place], [address], 10/08/2024 04:47:50 10/08/19 25 10/07/2024 PROTE IN/CR EATIN INE RATIO , URINE creatinine, urine 206.2 mg/dL R-No refer ence range estab lishe d for this assay Not Available [facility] (Lab) [address] [place], [address], 10/08/2024 04:47:50 10/08/19 25 10/07/2024 PROTE IN/CR EATIN INE RATIO , URINE protein, urine 28 mg/dL R-No refer ence range estab lishe d for this assay Not Available [facility] (Lab) [address] [facility], [place], [address], 10/08/2024 04:47:50 10/08/19 25 10/07/2024 PROTE IN/CR EATIN INE RATIO , URINE protein/crea tinine ratio, urine 0.14 . No Refer ence Range avail able for Rando m Urine s. A prote in to creat inine ratio of >=0.1 9 is a good predi ctor of signi fican t prote inuri a. A level of <0.14 can rule out signi fican t prote inuri a. Not Available [facility] (Lab) [address] [facility], [place], [address], 10/08/2024 04:47:50 08/27/19 25 08/27/2024 US, obste tric, 1st trime ster No observ ation record ed. [address], [place], [address], 08/27/2024 12:45:19 08/27/19 25 08/27/2024 US, obste tric, 1st trime ster No observ ation record ed. [email or web address] [facility] [address], [place], [address], 08/27/2024 12:54:24 09/09/19 25 09/09/2024 US, obste tric, limit ed No observ ation record ed. [email or web address] [place] [address], [place], [address], 09/09/2024 13:24:31 09/09/19 25 09/09/2024 US, obste tric, limit ed No observ ation record ed. [email or web address] [address], [place], [address], 09/09/2024 21:03:07 Result Notes None recorded. Problems Name Problem SNOMED Code Status Onset Date Resolution Date Notes Provider Name and Address Organization Details Recorded Time 05382144 Active 2024 [facility] 12:12:01 Benign hypertens ion 95272782 Active no meds, CBC/CMP/P C ratio baseline ordered; needs EKG HALLEY ADAMS MD [address], [place], [address], [facility] 5 23:38:26 Type 2 diabetes mellitus 51774969 Active - managed by [facility] - A1c 9.5% (07/2024) - Current regimen: lantus 32u qAM, humalog 07/02/15 - Last dilated eye exam: 08/2024 - Last EKG: pending - Evidence of end organ damage: n/a - echo: per [facility] Scheduled [facility] 10/14 Level II US 745 and consult 1145 Suzanne Pacheco [facility] 5 12:12:31 Family history of Congenita l heart disease 316843959 Active daughter with heart defect surgicall y repaired; plan for echo wnl Suzanne Junior pedraza [facility] 5 18:19:51 RhD negative 557716852 Active received Rhogam 07/2024 HALLEY ADAMS MD [address], [place], [address], [facility] 5 23:50:41 Problem Notes None recorded. Procedures Surgical History Date Name Laterality Status Provider Name and Address Organization Details Recorded Time 06/12/2023 Date of Last Pap Smear completed Becky Ferreira [facility] 09/09/2024 12:26:20 07/22/[address] [facility] 09/09/2024 13:16:08 Imaging Results None recorded. Procedure Notes None recorded. Medical Equipment None Reported. Allergies No known drug allergies Medications Name Sig Start Date Stop Date Status Note LastModified by Organization Details LastModified Time amoxicillin 500 mg capsule TAKE 1 CAPSULE BY MOUTH THREE TIMES DAILY FOR 10 DAYS 09/09 completed Not Available Not Available Not Available aspirin 81 mg capsule active Not Available Not Available N ot Available neomycin-po lymyxin-hyd rocort 3.5 mg/mL-10,00 0 unit/mL-1 % ear solution INSTILL 3 DROPS INTO EACH EAR 4 TIMES DAILY FOR 4 DAYS 09/09 completed Not Available Not Available Not Available metronidazo le 500 mg tablet TAKE 1 TABLET BY MOUTH TWICE DAILY FOR 7 DAYS 09/09 completed Not Available Not Available Not Available lisinopril 10 mg tablet TAKE 1 TABLET BY MOUTH ONCE DAILY 09/09 completed Not Available Not Available Not Available Humalog KwikPen (U-100) Insulin 100 unit/mL subcutaneou s INJECT 10 UNITS SUBCUTANE OUSLY 15-20 MINUTES BEFORE EACH MEAL, BREAKFAST , LUNCH, AND DINNER active Not Available Not Available No t Available pen needle, diabetic 32 gauge x 5/32 USE FIVE TIMES DAILY DIRECTED active Not Available Not Available No t Available Dexcom G6 Sensor device USE WITH DECKER OPERATOR AND TRANSMITT ER TO MONITOR GLUCOSE VALUES CONTINUOU SLY. PLEASE CHANGE THE SENSOR EVERY 10 DAYS 11/04 completed Not Available Not Available Not Available Dexcom G6 Transmitter device USE DIRECTED 11/04 completed Not Available Not Available Not Available insulin glargine-yf gn (U-100) 100 unit/mL (3 mL) subcutaneou s pen INJECT 19 UNITS SUBCUTANE OUSLY ONCE DAILY IN THE MORNING active Not Available Not Available No t Available insulin glargine-yf gn 10/07 completed Not Available Not Available Not Available Ozempic 0.25 mg or 0.5 mg (2 mg/3 mL) subcutaneou s pen injector INJECT 0.25 MG SUBCUTANE OUSLY ONCE A WEEK FOR 4 WEEKS AND THEN 0.5MG ONCE WEEKLY FOR 4 WEEKS 09/09 completed Not Available Not Available Not Available Vitals Date Recorded Body weight Body mass index (BMI) Body height Systolic blood pressure Diastolic blood pressure Provider Name and Address Organization Details Last Updated DateTime 09/09/2024 46492.26 g 30.2 kg/m2 162.56 cm 125 mm[Hg] 84 mm[Hg] Becky Ferreira [facility] 13:14:11 Date Recorded Body height Body mass index (BMI) Body weight Systolic blood pressure Diastolic blood pressure Provider Name and Address Organization Details Last Updated DateTime 10/07/2024 162.56 cm 31.4 kg/m2 81515.4 g 128 mm[Hg] 74 mm[Hg] Beckymiladis Henriquezen [facility] 12:10:17 Date Recorded Body weight Systolic blood pressure Diastolic blood pressure Provider Name and Address Organization Details Last Updated DateTime 11/04/2024 93793.1426 7 g 147 mm[Hg] 79 mm[Hg] Bryanna Kaufman [facility] 11/04/2024 12:26:59 Date Recorded Body height Body mass index (BMI) Body weight Systolic blood pressure Diastolic blood pressure Provider Name and Address Organization Details Last Updated DateTime 12/19/2024 162.56 cm 33.9 kg/m2 43196.85 g 128 mm[Hg] 80 mm[Hg] Clarice Kohler [facility] 09:52:16 Social History Question Answer Notes LastModified by Organizat ion Details LastModified Time Tobacco Smoking Status Never Smoker [facility] 09/09/2024 13:15:45 Do You Have An Advance Directive? No Information n ot available 09/09/2024 Are You Blind Or Do You Have Difficulty Seeing? No [email or web address] Information n ot available 09/09/2024 What Is Your Level Of Caffeine Consumption? Occasional [email or web address] Information not available 09/09/2024 How Much Tobacco Do You Chew? None [email or web address] Information not available 09/09/2024 In The 14 Days Before Symptom Onset, Have You Had Close Contact With A Laboratory-confirm ed COVID-19 While That Case Was Ill? No [email or web address] Information n ot available 09/09/2024 In The 14 Days Before Symptom Onset, Have You Had Close Contact With A Person Who Is Under Investigation For COVID-19 While That Person Was Ill? No Information not available 09/09/2024 Have You Been To An Area Known To Be High Risk For COVID-19? No Information not available 09/09/2024 Are You Deaf Or Do You Have Serious Difficulty Hearing? No [email or web address] Information not available 09/09/2024 What Type Of Diet Are You Following? REGULAR [email or web address] Information n ot available 09/09/2024 What Is The Highest Grade Or Level Of School You Have Completed Or The Highest Degree You Have Received? RS19189-4 [email or web address] Information not available 09/09/2024 Are There Any Guns Present In Your Home? No Information not available 09/09/2024 Do You Use Protection During Sex? No [email or web address] Information not available 09/09/2024 Do You Use Your Seat Belt Or Car Seat Routinely? Yes [email or web address] Information not available 09/09/2024 Are You Sexually Active? Yes [email or web address] Information not available 09/09/2024 Do You Have Smoke And Carbon Monoxide Detectors In Your Home? Yes Information not available 09/09/2024 How Much Tobacco Do You Smoke? No [email or web address] Information not available 09/09/2024 Do You Use Sunscreen Routinely? No [email or web address] Information not available 12/19/2024 Have You Used IV Drugs? No [email or web address] Information not available 09/09/2024 Do You Have Difficulty Walking Or Climbing Stairs? No [email or web address] Information not available 09/09/2024 Sex: Unknown Functional Status Question Answer Note LastModified by Organizat ion Details LastModified Time Do you use any illicit or recreational drugs? No [email or web address] Information not available 09/09/2024 What is your level of alcohol consumption? None [email or web address] Information not available 09/09/2024 Are you currently employed? Yes [email or web address] Information not available 09/09/2024 Are you able to walk? YESWOREST [email or web address] Information not available 09/09/2024 Are you able to care for yourself? 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 No [email or web address] Information not available 09/09/2024 What is your exercise level? Occasional [email or web address] Information not available 09/09/2024 Mental Status Question Answer Note LastModified by Organization D etails LastModified Time Do you feel stressed (tense, restless, nervous, or anxious, or unable to sleep at night)? [id number] Information not available 09/09/2024 Family History Relationship Description Onset Age of this Age Resolved Age Notes LastModified by Organization Details LastModified Time Sister Diabetes mellitus [email or web address] Not available 09/19 11:51:12 Paternal Grandfather Diabetes mellitus [email or web address] Not available 2024 12:26:20 Father Diabetes mellitus [email or web address] Not available 2024 12:26:20 Medical History Condition Response Diabetes Y Gynecological History Statement/Question Response Abnormal Pap Y On BCP's at Conception? N N STIs/STDs N HPV Vaccine Y Current Control Method Age at First Child 22 Are cycles usually normal Y Sexually Active? Y Age of first menstrual cycle 14 Date of Last Pap Smear 06/12/2023 Sexual Problems? N LMP Unknown N 03/22/2022 Obstetrics History GPAL:G 2 P 1 0 0 1 Type Value Full Term 1 Living 1 Total 2 Past Encounters Encounter ID Performer Location Encounter Start Date Encounter Closed Date Diagnosis/Indication Diagnosis SNOMED-CT Code Diagnosis ICD10 Code Diagnosis Note [id number] Markos Caballero MD [place] [address],[facility] [place] [address] 09/09/2024 12:21:05 09/09/2024 13:54:11 Uncertain viability of [id number] O36.80X0 Z3A.14 [id number] HALLEY ADAMS MD [place] [address] [address] 09/09/2024 12:21:30 09/10/2024 09:09:01 Chronic hypertension complicating AND/OR reason for care during 44234694 O16.9 - previously on lisinopril , not taking in - BP well controlled currently- baseline labs ordered- continue bASA for preeclamps ia ppx Pre-existi ng type 2 diabetes mellitus in 130722759 O24.119 - referred to [facility] by previous OBGYN- current regimen: lantus 32u qAM, humalog 10 with meals- A1c 9.5% in July- discussed risks of T2DM in - will send new referral to [facility] to transition primary OBGYN care to [facility] RhD negative [id number] Z 01.83 - Rhogam received 07/2024 for bleeding Family his tory of Congenital heart disease 125343579 Z82.79 - daughter born with heart defect, required surgery- discussed risk of cardiac defects with T2DM and family hx of cardiac defects; will order echo in 2nd trimester test positive [id number] Z32.01 1. Exam today within normal limits.2. Ultrasound today confirms GA and viability. EDC . GC/Claiandi a testing done: will f/u as indicated. 4. ACOG guidelines and plan of care for reviewed with patient. All questions answered.5 . Return to office in 4 weeks for new OB visit6. New OB labs and NIPT completed at [facility] in [place], [place]; records requested [id number] HALLEY ADAMS MD [place] [address] [address] 10/07/2024 11:50:52 10/08/2024 04:44:51 Chronic hypertension complicating AND/OR reason for care during 34214923 O16.9 - previously on lisinopril , not taking in - BP well controlled currently- baseline labs ordered- continue bASA for preeclamps ia ppx Pre-existi ng type 2 diabetes mellitus in [id number] O24.119 - referred to [facility] by previous OBGYN- A1c 9.5% in July; new A1c pending- discussed risks of T2DM in - managed by [facility] Family his tory of Congenital heart disease [id number] Z82.79 - daughter born with heart defect, required surgery- discussed risk of cardiac defects with T2DM and family hx of cardiac defects; will order echo in 2nd trimester thru [facility] Gestation period, 19 weeks [id number] Z3A.19 [id number] Markos Caballero MD [facility] [address] [address] 11/04/2024 12:05:42 11/04/2024 12:48:28 Routine care [id number] Z34.82 [id number] Markos Caballero MD [facility] [address] [address] 12/19/2024 09:41:26 12/19/2024 10:50:36 screening [id number] Z36.89 O36.0130 care status 24 [id number] Z34.83 Health Concerns Section Related Observation LastModified by Organization Detai ls LastModified Time None Recorded Concern Status LastModified by Organization Details LastModified Time None Recorded Advance Directives Directive N: Payers Encounter Date Sequence Insurance Name Policy Number Policy Erazo Covered Member ID Erazo Member ID Guarantor Name 09/09/2024 1 [place] [id number] Penny Larkin [id number] [place] 09/09/2024 2 [place] [facility] [id number] [place] 09/09/2024 1 [place] [id number] [id number] [place] 09/09/2024 2 [place] [facility] [id number] [place] 10/07/2024 1 [place] [id number] Penny Larkin [id number] [place] 10/07/2024 2 [place] [facility] [id number] [place] 11/04/2024 1 [place] [id number] Penny Larkin [id number] [place] 12/19/2024 1 [place] [id number] [facility] [id number] [facility] Notes Date Note Type Note Provider Name and Address Organization Details Recorded Time 09/09/2024 text/html Presents to the office today to confirm . Patient denies any problems up to this point with her . Patient denies cramping. No nausea. Has had 3 episodes of bleeding. 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 A1c was 8.8% in June, 9.5% in July. Current regimen 32u qAM, humalog 10u with meals. Established with MFM at [facility]. Hx of chronic hypertension; well controlled off of medications. Patient is to [place]. Lives with partner and two girls. 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 Denies tobacco/EtOH/illi cits. NIPT with [facility], LR male! labs drawn with [facility] as well, will request records. Rhogam received 08/03. HALLEY ADAMS MD [address], [place], [address], [facility] 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 10/08/19 25 1 Negative OPEN Fetus Data First Name Last Name Admitted to NICU Weight (g) Sex Living Outcome Pediatric Complications Fetus ID Race Codes Race Delivery Type [id number] Problems Problem Notes Problem Name Start Date End Date Resolution Snomed Code Not e Family history of Congenital heart disease [id number] daughter with h eart defect surgically repaired; plan for echo wnl Type 2 diabetes mellitus [id number] - managed by LEELEE HARRISON- A1c 9.5% (07/2024)- Current regimen: lantus 32u qAM, humalog 07/02/15- Last dilated eye exam: 08/2024- Last EKG: pending- Evidence of end organ damage: n/a- echo: per MFMScheduled [facility] 10/14 Level II US 745 and consult 1145 RhD negative [id number] receive d Rhogam 07/2024 Benign hypertension [id number] no meds, CBC/CMP/PC ratio baseline ordered; needs EKG Chung Calculation Initial Chung Date Initial Exam Date Initial Exam Provider Initial Ultrasound Date Last Menstrual Period Date Ultra Sound Weeks Gestation 03/04/2025 10/07/2024 09/09/2024 14 Eighteen To Twenty Week Chung Update Ultra Sound Date Fundal Height At Umbil Quickening Date Ultra Sound Latest Weeks Gestation Final Chung Confirmed By Final Chung Confirmed Date Final Chung Date Ultra Sound Latest Days Gestation 0 [id number] 10/08/2024 03/04/20 25 0 Pre-herbie Flowsheet Flowsheet Date 10/07/2024 Hayward Score Blood Edema Fundus Height Fundus Units Glucose Ketones Leukocytes Nitrite Labor Signs Protein Cervic Dilation Cervic Effacement Cervic Station Type Weight in lbs Pre/Post Dialysis Refused Weight 183.301536121875 BP Diastolic BP Location Tested BP Systolic BP Type 74 L arm 128 sitting Fetus Heart Rate Present A 150 Fetus Movement A Yes Comments Patient presents to [facility] care. complicated by hx of T2DM. Has already been established with [facility], monitoring glucose. A1c 9.5% in Jul. Repeat today, along with CMP. EKG ordered. Also complicated by chronic HTN. Has been well controlled without medications. Taking bASA for preeclampsia ppx. 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 WIll plan for echo. One episode of bleeding since last visit. No cramping. Anatomy US scheduled next Saturday with MFM. RTC 4 weeks for routine care. Flowsheet Date 11/04/2024 Hayward Score Blood Edema Fundus Height Fundus Units Glucose Ketones Leukocytes Nitrite Labor Signs Protein Cervic Dilation Cervic Effacement Cervic Station Type Weight in lbs Pre/Post Dialysis Refused 191.932896106342 BP Diastolic BP Location Tested BP Systolic BP Type 79 L arm 147 sitting Fetus Heart Rate Present A 148 Present Fetus Movement A Yes Comments on meds prior to f or blood pressure, blood pressures normalized when she became . Mild elevation today, observe for persistence. Diabetes managed by MFM. Normal echo recently. No complaints today Flowsheet Date 12/19/2024 Hayward Score Blood Edema Fundus Height Fundus Units Glucose Ketones Leukocytes Nitrite Labor Signs Protein Cervic Dilation Cervic Effacement Cervic Station Type Weight in lbs Pre/Post Dialysis Refused Weight 197.729235354564 BP Diastolic BP Location Tested BP Systolic BP Type 80 L arm 128 sitting Fetus Heart Rate Present A 144 Fetus Movement A Yes Comments no complaints, no problems, routine care, no contractions, no vaginal bleeding, no loss of fluid, no cramping to get RhoGAM and 3rd trimester labs, noted diabetes testing Menstrual History Last Menstrual Date Menses Monthly On Bcp Conception Prior Menses Frequency Hcg Plus Date Menarche Onset Age Delivery Information Delivery Date Delivery Type Labor Anesthesia Weeks Gestation Incision Type Labor Labor Length Hrs Delivered By Post Complications Tubal Sterilization Discharge Date Comments Discharge Information Feeding Method Contraceptive Method Maternal HG B and HCT Levels
--- OUTSIDE RECORDS SUMMARY | 2024-12-24 09:46 | XMS_ITS | Data Portability ---
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 Plan of Treatment Reminders Order Date Submit Date Provider Last Modified By Organization Details Last Modified Time Details Appointments None recorded. Lab PPD (purified protein derivative ), skin test 2015 016 [facility] [place] [address] [place], [address], 6 16:01:28 PPD (purified protein derivative ), skin test 2015 016 [facility]), [address] [place], [address], 6 11:10:55 Referral endocrinol ogy referral - Patient with clinical goiter and thyroid symptoms; however labs and thyroid ultrasound normal. 2015 016 [email or web address] Samuel Stewart MD, [address] [place], [address], 6 10:25:33 Procedures None recorded. Surgeries None recorded. Imaging electromyo gram/nerve conduction study - right upper extremity pain and paresthesi a 2015 016 [facility], [address] [place], [address], 6 15:56:38 Medication Orders cyclobenza tracey 10 mg tablet 2015 016 INTERFACE [facility] [address] [place], [address], 6 15:02:43 naproxen 500 mg tablet 2015 016 [facility] [address] [place], [address], 6 15:02:44 prednisone 10 mg tablet 2015 016 [facility] [address] [place], [address], 6 14:30:01 naproxen 500 mg tablet 2015 016 [facility] [address] [place], [address], 6 14:30:01 Depo-Prove ra 150 mg/mL intramuscu lar suspension 2015 016 [email or web address] Not available 6 12:40:36 Celexa 20 mg tablet 2015 016 [facility] [address] [place], [address], 6 15:39:19 Depo-Prove ra 150 mg/mL intramuscu lar suspension 2015 016 [email or web address] Not available 6 11:11:32 Celexa 20 mg tablet 2015 016 [facility] [address] [place], [address], 6 11:00:00 Patient TargetsNo targets recorded. Patient Instructions Encounter Date Encounter Id Patient Instructions Last Modified By Organization Details Last Modified Time 07/28/2015 [id number] goiter: care instructions [email or web address] Not available 10/03/2015 10:46:07 learning about mood disorders [email or web address] Not available 10/03/2015 10:46:08 Follow up in 1 month for recheck on meds. Will follow up as scheduled for next depo shot [email or web address] Not available 07/28/2015 11:00:00 COUNSELING PROVIDED ON DIET AND EXERCISE WITH PATIENT. DISCUSSED IMPORTANCE OF HEALTHY, WELL BALANCED DIET. DISCUSSED BENEFITS OF REGULAR EXERCISE ROUTINE. [email or web address] Not available 07/28/2015 10:52:53 08/22/2015 [id number] learning about mood disorders [email or web address] Not available 10/03/2015 10:46:08 COUNSELING PROVIDED ON DIET AND EXERCISE WITH PATIENT. DISCUSSED IMPORTANCE OF HEALTHY, WELL BALANCED DIET. DISCUSSED BENEFITS OF REGULAR EXERCISE ROUTINE. [email or web address] Not available 08/22/2015 15:39:04 10/04/2015 [id number] Will follow up a s scheduled for next depo shot [email or web address] Not available 10/04/2015 12:17:17 COUNSELING PROVIDED ON DIET AND EXERCISE WITH PATIENT. DISCUSSED IMPORTANCE OF HEALTHY, WELL BALANCED DIET. DISCUSSED BENEFITS OF REGULAR EXERCISE ROUTINE. [email or web address] Not available 10/04/2015 12:17:17 11/11/2015 [id number] Will follow up i n 2 weeks for recheck; will obtain NCS to evaluate for paresthesia and pain [email or web address] Not available 11/11/2015 14:17:02 11/25/2015 [id number] Will check back with PT for appt. [...] ng refer ence inter primo Not Available [employer] [facility] [address] [address], [place], [address], 07/04/2015 14:57:22 07/04/20 15 07/04/2015 CMP, serum or plasm a urea nitrogen (BUN) 13 mg/dL 7-25 normal Not Available [facility] [address] [address], [place], [address], 07/04/2015 14:57:22 07/04/20 15 07/04/2015 CMP, serum or plasm a creatinine 0.72 mg/dL 0.50-1 .10 normal Not Available [address], [address], 07/04/2015 14:57:22 07/04/20 15 07/04/2015 CMP, serum or plasm a eGFR non-afr. croatian 118 mL/mi n/1.7 3m2 > or = 60 normal Not Available [address], [address], 07/04/2015 14:57:22 07/04/20 15 07/04/2015 CMP, serum or plasm a eGFR 137 mL/mi n/1.7 3m2 > or = 60 normal Not Available [address], [address], 07/04/2015 14:57:22 07/04/20 15 07/04/2015 CMP, serum or plasm a BUN/creatini ne ratio NOT APPLIC ABLE (calc ) 6-22 Not Available [address], [address], 07/04/2015 14:57:22 07/04/20 15 07/04/2015 CMP, serum or plasm a sodium 139 mmol/ L 135-14 6 normal Not Available [address], [address], 07/04/2015 14:57:22 07/04/20 15 07/04/2015 CMP, serum or plasm a potassium 4.2 mmol/ L 3.5-5. 3 normal Not Available [address], [address], 07/04/2015 14:57:22 07/04/20 15 07/04/2015 CMP, serum or plasm a chloride 101 mmol/ L 98-110 normal Not Available [address], [address], 07/04/2015 14:57:22 07/04/20 15 07/04/2015 CMP, serum or plasm a carbon dioxide 26 mmol/ L 19-30 normal Not Available [address], [address], 07/04/2015 14:57:22 07/04/20 15 07/04/2015 CMP, serum or plasm a calcium 9.8 mg/dL 8.6-10 .2 normal Not Available [address], [address], 07/04/2015 14:57:22 07/04/20 15 07/04/2015 CMP, serum or plasm a protein, total 8.0 g/dL 6.1-8. 1 normal Not Available [address], [address], 07/04/2015 14:57:22 07/04/20 15 07/04/2015 CMP, serum or plasm a albumin 4.7 g/dL 3.6-5. 1 normal Not Available [address], [address], 07/04/2015 14:57:22 07/04/20 15 07/04/2015 CMP, serum or plasm a globulin 3.3 g/dL_ (calc ) 1.9-3. 7 normal Not Available [address], [address], 07/04/2015 14:57:22 07/04/20 15 07/04/2015 CMP, serum or plasm a albumin/glob ulin ratio 1.4 (calc ) 1.0-2. 5 normal Not Available [address], [address], 07/04/2015 14:57:22 07/04/20 15 07/04/2015 CMP, serum or plasm a bilirubin, total 0.4 mg/dL 0.2-1. 2 normal Not Available [address], [address], 07/04/2015 14:57:22 07/04/20 15 07/04/2015 CMP, serum or plasm a alkaline phosphatase 112 U/L 33-115 normal Not Available [facility] Patient Communicator [address], [address], 07/04/2015 14:57:22 07/04/20 15 07/04/2015 CMP, serum or plasm a AST 20 U/L 10-30 normal Not Available [address], [address], 07/04/2015 14:57:22 07/04/20 15 07/04/2015 CMP, serum or plasm a ALT 24 U/L 6-29 normal Not Available [address], [address], 07/04/2015 14:57:22 07/04/20 15 07/04/2015 CBC w/ auto diff white blood cell count 8.4 thous and/u L 3.8-10 .8 normal Not Available [address], [address], 07/04/2015 14:57:23 07/04/20 15 07/04/2015 CBC w/ auto diff red blood cell count 4.73 maricruz on/uL 3.80-5 .10 normal Not Available [address], [address], 07/04/2015 14:57:23 07/04/20 15 07/04/2015 CBC w/ auto diff hemoglobin 13.7 g/dL 11.7-1 5.5 normal Not Available [employer] [address], [address], 07/04/2015 14:57:23 07/04/20 15 07/04/2015 CBC w/ auto diff hematocrit 42.4 % 35.0-4 5.0 normal Not Available [address], [address], 07/04/2015 14:57:23 07/04/20 15 07/04/2015 CBC w/ auto diff MCV 89.6 fL 80.0-1 00.0 normal Not Available [address], [address], 07/04/2015 14:57:23 07/04/20 15 07/04/2015 CBC w/ auto diff MCH 29.0 pg 27.0-3 3.0 normal Not Available [address], [address], 07/04/2015 14:57:23 07/04/20 15 07/04/2015 CBC w/ auto diff MCHC 32.4 g/dL 32.0-3 6.0 normal Not Available [address], [address], 07/04/2015 14:57:23 07/04/20 15 07/04/2015 CBC w/ auto diff RDW 12.7 % 11.0-1 5.0 normal Not Available [address], [address], 07/04/2015 14:57:23 07/04/20 15 07/04/2015 CBC w/ auto diff platelet count 371 thous and/u L 140-40 0 normal Not Available [address], [address], 07/04/2015 14:57:23 07/04/20 15 07/04/2015 CBC w/ auto diff MPV 8.0 fL 7.5-11 .5 normal Not Available [address], [address], 07/04/2015 14:57:23 07/04/20 15 07/04/2015 CBC w/ auto diff absolute neutrophils 4351 cells /uL 1500-7 800 normal Not Available [address], [address], 07/04/2015 14:57:23 07/04/20 15 07/04/2015 CBC w/ auto diff absolute lymphocytes 3385 cells /uL 850-39 00 normal Not Available [address], [address], 07/04/2015 14:57:23 07/04/20 15 07/04/2015 CBC w/ auto diff absolute monocytes 529 cells /uL 200-95 0 normal Not Available [address], [address], 07/04/2015 14:57:23 07/04/20 15 07/04/2015 CBC w/ auto diff absolute eosinophils 101 cells /uL 15-500 normal Not Available [address], [address], 07/04/2015 14:57:23 07/04/20 15 07/04/2015 CBC w/ auto diff absolute basophils 34 cells /uL 0-200 normal Not Available [address], [address], 07/04/2015 14:57:23 07/04/20 15 07/04/2015 CBC w/ auto diff neutrophils 51.8 % normal Not Available [address], [address], 07/04/2015 14:57:23 07/04/20 15 07/04/2015 CBC w/ auto diff lymphocytes 40.3 % normal Not Available [address], [address], 07/04/2015 14:57:23 07/04/20 15 07/04/2015 CBC w/ auto diff monocytes 6.3 % normal Not Available [address] [place], [address], 07/04/2015 14:57:23 07/04/20 15 07/04/2015 CBC w/ auto diff eosinophils 1.2 % normal Not Available [facility] [place] [address] [place], [address], 07/04/2015 14:57:23 07/04/20 15 07/04/2015 CBC w/ auto diff basophils 0.4 % normal Not Available [facility] [place] [address] [address], [place], [address], 07/04/2015 14:57:23 07/04/20 15 07/04/2015 varic miriam [...] VZV infec tion. Not Available [facility] [place] [address] [address], [place], [address], 07/04/2015 14:57:24 07/04/20 15 07/04/2015 TSH, serum [...] CLIEN T SERVI KATHERINE. PHONE NUMBE R: [phone] [phone] Not Available [employer] [facility] [address] [place], [address], 07/04/2015 14:57:24 08/22/19 16 08/22/2015 PPD (ramona fied prote in deriv ative ), skin test TB negati ve Not Available [facility] [employer] ([place]) [address] [place], [address], 08/22/2015 15:39:05 07/01/20 15 07/01/2015 rapid strep group A, throa t Strep negati ve Not Available [facility] [employer] ([place]) [address] [place], [address], 07/01/2015 16:34:27 07/28/19 16 07/28/2015 PPD (ramona fied prote in deriv ative ), skin test TB Not Available [facility] [employer] ([place]) [address] [place], [address], 07/28/2015 10:52:53 07/11/20 15 07/11/2015 US thyro id head/ neck/ sft tis [facility] al [address] [place] [address] [facility] OGY REPORT ____ NAME: PENNY NIETO ROOM: : 1990 ACCJLUIS T#: [id number] BED: AGE: 24 Y ACCESS ION#: [id number] SEX: F EXAM: UTHY THYROI D [...] Kristen suh on 2014 at 10:04 AM ([employer]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 KRISTEN SUH M.DRoya D Date/T james: 2014 10:[address] T Date/T james: 2014 10:[address] MT: [facility] [place] [address] [facility] (Imaging) [address] [place], [address], 07/28/2015 10:56:46 07/12/20 15 07/11/2015 ultra sound , thyro id No observ ation record ed. [facility] (Rad) [address] [place], [address], 07/28/2015 10:56:46 08/25/19 16 08/25/2015 CT neck wo [facility] [address] [place] [address] [phone] RADIOL OGY REPORT ____ NAME: PENNY NIETO ROOM: : 1990 ACCOUN T#: [id number] BED: AGE: 24 Y ACCESS ION#: [id number] SEX: F EXAM: CTNKS CT NECK W/O CONTRA ST DOS: 2015 DICTAT ED BY: KRISTEN ASKEW ORDERMando D BY: VEE RILEY ATTEND ING PHYSIC JÚNIOR: VEE RILEY PRIMOH Y CARE PHYSIC JÚNIOR: VEE RILEY ____ [...] PENNY NIETO ROOM: : 1990 ACCOUN T#: [id number] BED: AGE: 24 Y ACCESS ION#: [id number] SEX: F EXAM: CTNKS CT NECK W/O CONTRA ST DOS: 2015 DICTAT ED BY: KRISTEN ASKEW ORDERE D BY: VEE RILEY ATTEND ING PHYSIC JÚNIOR: VEE RILEY PRIMAR Y CARE PHYSIC JÚNIOR: DELGADOGEORGIANA GilmoreEY Loretta ____ This docume nt is electr onical ly signed by: Kristen suh on 2015 at 09:41 AM ([employer]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 KRISTEN SUH M.D. D Date/T james: 2015 09:[address] T Date/T james: 2015 09:[address] MT: [facility] Page [address] [facility] (Imaging) [address] [place] [facility] [place], [address], 10/04/2015 12:17:18 08/26/19 16 08/25/2015 CT, neck No observ ation record ed. [facility] (Rad) [address] [place], [address], 10/04/2015 12:17:18 11/17/19 16 11/17/2015 elect romyo gram/ nerve condu ction study No observ ation record ed. [address] In-House Results [address] [place], [address], 11/18/2015 12:39:55 Result Notes None recorded. Problems Name Problem SNOMED Code Status Onset Date Resolution Date Notes Provider Name and Address Organization Details Recorded Time Paresthesia of hand 419915647 TICO Chu [address] [place], [place] [address] [place], [address], [facility] [employer] 6 15:03:21 Paresthesia of upper limb 19519680 TICO Chu[address] [place], [address], [facility] [employer] [facility] 6 15:03:21 Cervical radiculopathy 04308750 TICO [address] [place], [address], [facility], [facility] 6 15:03:21 Goiter 7649527 Active TICO Coello [address] [place] [address], [address], [facility] 6 15:03:21 Depressive disorder 73437511 Active TICO Coello [address] [place] [address], [address], [facility] 6 15:03:21 Mass of neck 832252567 Active TICO Coello [address] [place] [address], [address], [facility] 6 15:03:21 Problem Notes None recorded. Procedures Surgical History Date Name Laterality Status Provider Name and Address Organization Details Recorded Time 07/28/2015 PHQ-9 completed TICO Coello [address] [place] [address], [address], [facility] 07/28/2015 10:55:27 Imaging Results None recorded. Procedure Notes None [...] Updated DateTime 6 28.3 kg/m2 162.56 cm 90021.0 05105 g 74 /min 118 mm[Hg] 70 mm[Hg] Laureen [employer] [facility] [employer] 6 10:34:24 Date Recorded Body weight Body mass index (BMI) Heart rate Body height Systolic blood pressure Diastolic blood pressure Provider Name and Address Organization Details Last Updated DateTime 6 04790.7 792 g 27.5 kg/m2 74 /min 162.56 cm 126 mm[Hg] 62 mm[Hg] Laureen [employer] [facility] [employer] 6 15:32:55 Date Recorded Body weight Body mass index (BMI) Body height Systolic blood pressure Diastolic blood pressure Provider Name and Address Organization Details Last Updated DateTime 10/04/2015 74328.18 683 g 27.3 kg/m2 162.56 cm 126 mm[Hg] 72 mm[Hg] Chelle Samson [facility] [employer] [facility] 6 12:08:20 Date Recorded Body mass index (BMI) Body height Heart rate Body weight Systolic blood pressure Diastolic blood pressure Provider Name and Address Organization Details Last Updated DateTime 6 28.4 kg/m2 162.56 cm 78 /min 19963.4 91604 g 120 mm[Hg] 71 mm[Hg] Laureen Wilkins [facility] [employer] [facility] 6 14:05:20 Date Recorded Body weight Body height Heart rate Oxygen saturation Oxygen saturation in Arterial blood by Pulse oximetry Body mass index (BMI) Systolic blood pressure Diastolic blood pressure Provider Name and Address Organization Details Last Updated DateTime 6 69101.1 4868 g 162.56 cm 114 /min 97 % 97 % 28.2 kg/m2 140 mm[Hg] 68 mm[Hg] Margaret Weir LPN [facility] [employer] [facility] 6 14:52:06 Social History Question Answer Notes LastModified by Organizat ion Details LastModified Time Tobacco Smoking Status Never Smoker Jacquie Pineda [facility] [employer] [facility] 07/01/2015 16:30:03 Which Illicit Or Recreational Drugs Have You [...] not available 07/28/2015 Sex: Unknown Functional Status Question Answer Note LastModified by Organization D etails LastModified Time What is your level of alcohol consumption? None Information not available 07/28/2015 Mental Status None recorded. Family History Relationship Description Onset Age of this Age Resolved Age Notes LastModified by Organization Details LastModified Time Unspecified Relation Diabetes mellitus [email or web address] Not available 2015 14:05:21 Unspecified Relation Hypertensive disorder [email or web address] Not available 2015 14:05:21 Sister Hypothyroidi sm [email or web address] Not available 2015 14:05:21 Medical History Condition Response Heart Problems N Coronary Artery Disease N Other N Hyperthyroidism N Kidney or [...] Recorded Time Tdap 07/28/2015 completed Not Available [employer] 08/08/2019 02:28:13 DTaP, 5 pertussis antigens 03/05/1997 completed TICO Coello [address] [place], [address], [facility] 07/28/2015 10:46:53 MMR 03/01/1993 [place], [address], [facility] [employer] 07/28/2015 10:46:53 GUnU-Lps-VKX 03/18/1992 [place], [address], [facility] [employer] 07/28/2015 10:46:53 DTaP-IPV 05/26/1993 [place], [address], [facility] [employer] 07/28/2015 10:46:53 DWiI-Nrs-NAD 01/07/[address] [place] [address], [address], [facility] [employer] 07/28/2015 10:46:53 KBdP-Zko-VEO 05/20/1991 [place], [address], [facility] [employer] 07/28/2015 10:46:53 MMR 01/27/1997 TICO Llanos [address] [place] [address], [address], [facility] [employer] 07/28/2015 10:46:53 Past Encounters Encounter ID Performer Location Encounter Start Date Encounter Closed Date Diagnosis/Indication Diagnosis SNOMED-CT Code Diagnosis ICD10 Code Diagnosis Note [id number] TICO Coello[address] [address] 07/01/2015 16:12:42 07/01/2015 16:46:27 Goiter 4952694 E04.9 [id number] TICO Coello [address] [address] 07/28/2015 10:21:19 07/28/2015 10:58:53 Goiter 0818014 E04.9 Depressive disorder 3548 9007 F32.9 [facility] care 51006 5005 Z30.40 [id number] TICO Coello [address] [address] 08/22/2015 15:24:53 08/22/2015 15:39:50 Depressive disorder 03774670 F32.9 Active or passive immunization 349774530 Z23 [id number] TICO Coello [address] [address] 10/04/2015 11:47:55 10/04/2015 12:19:28 Contraception care 975719901 Z30.40 [id number] TICO Coello [address] [address] 11/11/2015 13:46:12 11/11/2015 14:18:11 Paresthesia of hand 865594016 R20.2 Paresthesi a of upper limb 93213563 R20.2 [id number] TICO Coello [address] [address] 11/25/2015 14:46:56 11/25/2015 15:03:36 Cervical radiculopathy 09377567 M54.12 Health Concerns Section Related Observation LastModified by Organization Detai ls LastModified Time None Recorded Concern Status LastModified by Organization Details LastModified Time None Recorded Advance Directives Directive None Recorded Payers Encounter Date Sequence Insurance Name Policy Number Policy Erazo Covered Member ID Erazo Member ID Guarantor Name 07/28/2015 1 [place] [facility] Penny Nieto [id number] Penny Nieto 08/22/2015 1 [place] [facility] Penny Nieto [id number] Penny Nieto 10/04/2015 1 [place] [facility] Penny Nieto [id number] Penny Nieto 11/11/2015 1 [place] [facility] Penny Nieto [id number] Penny Nieto 11/25/2015 1 [place] [facility] Penny Nieto [id number] Penny Nieto Notes Date Note Type Note Provider Name and Address Organization Details Recorded Time 07/28/2015 text/html Patient here tod ay for new patient appointment. Otherwise she is still needing a referral to ENDO. No other concerns to report. TICO Coello [address] [place] [address], [address], [facility] [employer] 07/28/2015 11:00:13 08/22/2015 text/html Patient here moiz king for her 2nd TB skin test and to recheck her Celexa which she states is working well. Denies any other concerns at today's visit. TICO Coello [address] [place], [address], [facility] [employer] 08/22/2015 15:39:07 10/04/2015 text/html Patient here moiz ay for her depo shot. She has no concerns to report at today's visit. TICO Coello [address] [place] [address], [address], [facility] [employer], [facility] 10/04/2015 12:17:38 11/11/2015 text/html Patient here moiz king for concerns or right arm/shoulder pain. She [...] other concerns to report. TICO Coello [address] [place], [address], [facility] [employer] 11/11/2015 14:30:09 11/25/2015 text/html Patinet here moiz king for a follow up on meds and imaging. We had referred her to PT; however she has not heard from them yet. She states she has noticed some improvement with the medications. Otherwise no other concerns to report. TICO Coello [address] [place], [address], [facility] [employer] 11/25/2015 15:03:26 OBGyn Episode No OBEpisode recorded.
--- OUTSIDE RECORDS SUMMARY | 2024-12-24 09:46 | XMS_ITS | Clinical Summary ---
Author Organization [facility] Address [address] [place] [address] Care Team Providers Care Supervisor [employer] Name Role Phone No, Physician Primary Care Provider [phone] Allergies No known active allergies Medications aspirin 81 mg chewable tablet Take 1 tablet (81 mg total) by mouth daily Active insulin glargine 100 unit/mL (3 mL) pen for injection Inject 32 units under the skin in the morning. 15 mL 3 5 Active insulin lispro (HumaLOG, ADMELOG) 100 unit/mL vial for injection Inject 10 unit under the skin 15-20 minutes before each meal, breakfast, lunch and dinner. 15 mL 3 5 Active Additional Information Patient taking differently: Inject 14 units breakfast, 22 units lunch and dinner., Reported on 12/23/2024 vit 56-rinj-ehazi-d presley 27mg iron- 800 mcg-250 mg capsule Take by mouth Active blood-glucose sensor device Use as directed to monitor blood sugars 3 each 5 5 Active Active Problems Problem Noted Date Diagnosed Date Marginal insertion of umbili mil cord affecting management of mother 10/14/2024 Overview (11/24/2024): - s/p counseling Plan/Recommendations [x] Growth ultrasounds per recommendations for T2DM Previous with brina enital heart defect, currently , second trimester 08/19/2024 Overview (11/24/2024): History: PV stenosis in prior daughter was [...] on the particular type of CHD. Plan: [x] Specialized anatomic survey at 18-22 weeks [x] Offer echocardiogram with pediatric cardiology Assessment & Plan (09/16/2024 9:25 AM NANOTECHNOLOGY ENGINEERING TECHNOLOGIST): History: PV stenosis in 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 Doing well now. Plan: [] Specialized anatomic survey at 18-22 weeks [] Offer echocardiogram with pediatric cardiology Assessment & Plan (08/19/2024 4:24 PM NANOTECHNOLOGY ENGINEERING TECHNOLOGIST): History: PV stenosis in prior daughter was [...] pediatric cardiology Supervision of high risk in [facility] 08/11/2024 Overview (09/16/2024): [x] Co-management vs. [] Full [facility] Care; [] Red Team [x] Blue Team Referring Provider: Trent Levin [id number] > Transferring to [facility] 08/30/24. ( Chandrakant Morales MD) [] or Medicare Insurance [x] Dating Criteria: [...] vaccine counseling (<=26 yo): Assessment & Plan (09/16/2024 9:26 AM NANOTECHNOLOGY ENGINEERING TECHNOLOGIST): Continue co-management of care with Dr. Morales Assessment & Plan (08/19/2024 4:23 PM NANOTECHNOLOGY ENGINEERING TECHNOLOGIST): [x] Co-management vs. [] Full M Care; [] Red Team [x] Blue Team Referring Provider: Trent Levin [phone] > Transferring to [facility] 08/30/24. [] or Medicare Insurance [x] [...] Pre-existing type 2 diabetes mellitus during in third trimester 08/11/2024 Overview (12/15/2024): History & Counseling Diagnosed 2020 History of DKA? no Last hemoglobin A1C: 9.5% on 08/04/24 Pre- regimen: metformin, ozempic MFM counseling: completed 08/19/2024 Dexcom: sent share request on 08/19/24, added to DM , no longer using. 11/24/24: Khloe sharing is turned on Plan - Current regimen: 12/15/2024 - basal again decreased due to overnight hypoglycemia Glargine 42u qAM > 38u qHS Humalog - Physician adjusting insulin dosage: MFM [x] Counseling performed [x] Diabetes education [x] Recommend weekly review of BG/insulin data to adjust insulin dosing [x] Glucagon prescribed by primary OB [x] Referral to ophthalmology for comprehensive eye exam - up to date [] Baseline CMP, UPC - with primary OB [] A1c qTrimester [x] 1st T: 9.5% (1/14/25) [] 2nd T: [] 3rd T: [x] First trimester TSH 1.09 [x] ASA starting at 12 weeks gestation [] Baseline EKG, consider maternal TTE - with primary OB [x] Specialized anatomy ultrasound at 18-20 weeks [x] echocardiogram at 20-22 weeks [] Serial growth scans starting at 24 weeks [] Twice weekly testing starting at 32 weeks [] insulin plan by 32 weeks [] Delivery at 39 0/7-39 6/7 (36 0/7 to 38 6/7 with vascular complications or poorly controlled) Assessment & Plan (09/16/2024 9:24 AM NANOTECHNOLOGY ENGINEERING TECHNOLOGIST): 09/16/24 CGM review: Past two days with normal fasting values and rare postprandial elevation. Patient states that she changed sensor on Saturday and feels that new sensor is more accurate. Plan - Current regimen: 09/16/2024 - no changes Glargine 32u qAM Humalog 10 units before meals - Physician adjusting insulin dosage: MFM [x] Counseling performed [x] Diabetes education [x] Recommend weekly review of BG/insulin data to adjust insulin dosing [x] Glucagon prescribed by primary OB [x] Referral to ophthalmology for comprehensive eye exam - last 3 years, will make appointment [] Baseline CMP, UPC - with primary OB [] A1c qTrimester [x] 1st T: 9.5 08/04/24 [] 2nd T: [] 3rd T: [x] First trimester TSH 1.09 [x] ASA starting at 12 weeks gestation [] Baseline EKG, consider maternal TTE - with primary OB [] Specialized anatomy ultrasound at 18-20 weeks - ordered [] echocardiogram at 20-22 weeks [] Serial growth scans starting at 24 weeks [] Twice weekly testing starting at 32 weeks [] insulin plan by 32 weeks [] Delivery at 39 0/7-39 6/7 (36 0/7 to 38 6/7 with vascular complications or poorly controlled) Assessment & Plan (08/19/2024 4:22 PM NANOTECHNOLOGY ENGINEERING TECHNOLOGIST): History Diagnosed 2020 History of DKA? no [...] poorly controlled) Chronic hypertension affecting 025 Overview (10/14/2024): Diagnosis: ~2017 Pre- medications: lisinopril S/p counseling 08/19/2024 Current medication regimen: no medications 10/14/2024 Plan: [x] Low dose ASA 81 mg starting at 12 weeks - starting 08/19/2024 [] Baseline labs (CBC, CMP, UPC) - with primary OB needs CMP [] Baseline EKG - with primary OB [] Baseline ECHO (if dx >4yrs or >30) - pt reports this was denied by insurance, now has secondary insurance so may consider re-ordering pending EKG [] Growth scans starting at 24 weeks every 4 weeks [] If on medications, weekly surveillance starting at 32 weeks [] Delivery at 37w0d - 39w6d is recommended, although we discussed the possibility of earlier delivery for uncontrolled hypertension or preeclampsia. Assessment & Plan (09/16/2024 9:25 AM NANOTECHNOLOGY ENGINEERING TECHNOLOGIST): Diagnosis: ~2017 Pre- medications: lisinopril S/p counseling 08/19/2024 Current medication regimen: no medications 09/16/2024 Plan: [x] Low dose ASA 81 mg starting at 12 weeks - starting 08/19/2024 [] Baseline labs (CBC, CMP, UPC) - with primary OB needs CMP [] Baseline EKG - with primary OB [] Baseline ECHO (if dx >4yrs or >30) - pt reports this was denied by insurance, now has secondary insurance so may consider re-ordering pending EKG [] Growth scans starting at 24 weeks every 4 weeks [] If on medications, weekly surveillance starting at 32 weeks [] Delivery at 37w0d - 39w6d is recommended, although we discussed the possibility of earlier delivery for uncontrolled hypertension or preeclampsia. Assessment & Plan (08/19/2024 4:20 PM NANOTECHNOLOGY ENGINEERING TECHNOLOGIST): Diagnosis: ~2018 Pre- medications: lisinopril Counseling 08/19/2024: [...] cervix complicating in first trimester 08/11/2024 Overview (11/24/2024): - s/p counseling - normal CL at time of anatomy Plan Routine care Assessment & Plan (08/19/2024 4:21 PM NANOTECHNOLOGY ENGINEERING TECHNOLOGIST): Counseling 08/19/2024: While some studies have suggested [...] Encounters Date Type Department Care Team Description 12/23/2024 11:15 AM CDT Telemedicine [facility] [address] [place] [phone] Pre-existing type 2 diabetes mellitus during in third trimester (Primary Dx); Supervision of high risk in second trimester; Chronic hypertension affecting 12/23/2024 10:30 AM CDT Ancillary Procedure [facility] [address] [place] [phone] Chronic hypertension affecting ; Pre-existing type 2 diabetes mellitus during in second trimester; Supervision of high risk in second trimester 12/22/2024 Telephone [facility] [address] [place] [phone] Ashley Valverde CMA 12/15/2024 Documentation [facility] [address] [place] [address] Sherry Luna MD Glycemic control meeting 12/08/[address] [phone] Carla Govea MD 12/01/[address] [phone] Maria Luisa Hector MD 11/24/2024 11:30 AM CDT Telemedicine [facility] [address] [phone] Chronic hypertension affecting (Primary Dx); Pre-existing type 2 diabetes mellitus during in second trimester; Supervision of high risk in second trimester; Previous with congenital heart defect, currently , second trimester; 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; History of LEEP (loop electrosurgical excision procedure) of cervix complicating in first trimester 11/24/2024 10:45 AM CDT Ancillary Procedure [facility] [address] [place] [phone] Pre-existing type 2 diabetes mellitus during in second trimester; Chronic hypertension affecting ; Supervision of high risk in second trimester 11/23/2024 Telephone [facility] [address] [place] [phone] Ashley Valverde CMA 11/17/[address] [phone] Sherry Luna MD Glycemic control - CGM review 11/04/2024 8:00 AM CDT Office Visit [facility] Pediatric Cardiology [facility] 2nd Floor [address] [place] [phone] Diabetes mellitus affecting in second trimester (Primary Dx); Family history of congenital heart disease 11/04/2024 7:36 AM CDT - 11/04/2024 11:59 PM CDT Hospital Encounter [facility] Pediatric Cardiology [facility] 2nd Floor [address] [place] [phone] Supervision of high risk in second trimester; Pre-existing type 2 diabetes mellitus during in second trimester Discharge Disposition: Discharge to home or self care 11/03/2024 Documentation [facility] [address] [place] [address] Sherry Luna MD Glycemic control - CGM review 10/28/2024 10:45 AM CDT Ancillary Procedure [facility] [address] [place] [address] [phone] Pre-existing type 2 diabetes mellitus during in second trimester; Chronic hypertension affecting ; Supervision of high risk in second trimester 10/26/2024 [facility] [address] [place] [address] Floor [address] [place] [phone] Cierra Rivera RN CGM data review 10/19/2024 Documentation [facility] Maternal- Medicine [address] [place] [address] [address] [place] [address] [phone] Cierra Rivera RN CGM data review 10/14/2024 11:45 AM CDT Telemedicine [facility] [address] [place] [phone] Pre-existing type 2 diabetes mellitus during in second trimester (Primary Dx); History of LEEP (loop electrosurgical excision procedure) of cervix complicating in first trimester; Chronic hypertension affecting ; Previous with congenital heart defect, currently , first trimester; 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; Supervision of high risk in second trimester 10/14/2024 10:45 AM CDT Ancillary Procedure [facility] [address] [place] [phone] Chronic hypertension affecting ; Pre-existing type 2 diabetes mellitus during in second trimester; Previous with congenital heart defect, currently , first trimester 10/14/2024 Orders Only [facility] Maternal- Medicine [address] [place] [address] [address] [place] [address] [phone] Jennifer Rodríguez, RN Supervision of high risk in second trimester (Primary Dx); Pre-existing type 2 diabetes mellitus during in second trimester 10/06/2024 Documentation [facility] Maternal- Medicine [facility] [address] [place] [address] Sherry Luna MD 09/29/2024 Documentation [facility] Maternal- Medicine [facility] [address] [place] [address] Sherry Luna MD Glycemic control - CGM 09/28/2024 Documentation [facility] Maternal- Medicine [address] [facility] 7th Floor [address] [place] [phone] Cierra Rivera RN CGM data review from Last 3 Months Surgical History Surgery [...] on file Legal Sex Female 9:48 AM NANOTECHNOLOGY ENGINEERING TECHNOLOGIST Gender Identity Not on file Sexual Orientation [...] Estimated Date of Delivery 08/11/2024 - Present (12/24/2024) 03/04/2025 (set by Kermit Haywood RMA on 08/11/2024 based on Last Menstrual Period on 05/28/2024 (Approximate)) Dating Summary Based On JOE GA Diff Last Menstrual Period on 05/28/2024 (Approximate ) 03/04/2025 Working Ultrasound on 08/03/2024 03/04/2025 Same GA:9w4d Comment:CRL report scanned u [employer], p19 Vitals Pregravid Weight Height TWG (As of 12/24/2024) Pregrav id BMI 160 cm (5' 3) Notes Progress Notes - Telemedicin e - 11/24/2024 - GA:25w5d 11/24/2024 - 25w5d - Amber Cook MD Images from the original note were not included. MFM Return Consult Visit 11/24/2024 Dear Provider It was a pleasure meeting again with our mutual patient in continued consultation. Penny Nieto is a 34 y.o. at 25w5d by who is comanaged with Dr. Hayward. Her is complicated by chronic hypertension on no medications, history of LEEP, marginal cord insertion, T2DM, hx prior infant with CHD Subjective: She reports feeling well. Denies vaginal bleeding, loss of fluid, contractions. Reports positive movement. Has not had glucometer, has forgotten some doses of insulin with with dinner. She is checking Fingersticks, reports fastings in the 70s and postprandials <150 (mostly elevated without indulin at dinner) . Going to use khloe CGM and has limited samples . Patient denies headache, visual symptoms, shortness of breath, epigastric pain, nausea/vomiting, or increased facial/hand swelling. Objective: BP 133/82 (BP Location: Left arm, Patient Position: Sitting) Pulse (!) 7 Ht 160 cm (5' 3) Wt 196 lb (88.9 kg) LMP 05/28/2024 (Approximate) BMI 34.72 kg/m General: alert, cooperative, in no distress Heart: regular rate Lungs: non-labored respirations Abdomen: gravid Extremities: warm and well-perfused Ultrasound: 11/24/2024 IUP at 25w 5d for evaluation of growth assessment. Breech presentation. The interval growth has been appropriate. The EFW plots at the 12%. The amniotic fluid volume measured 12 cm Please see report for full details. Assessment/Plan: Penny Nieto is a 34 y.o. at 25w5d with a complicated by the following: Problem List joe 03/04/25 Supervision of high risk in second trimester Overview [x] Co-management vs. [] Full MFM Care; [] Red Team [x] Blue Team Referring Provider: Trent Levin [phone] > Transferring to [facility] 08/30/24. ( Chandrakant Morales MD) [] or Medicare Insurance [x] Dating Criteria: [...] [] PP HPV vaccine counseling (<=26 yo): Relevant Orders US Ob Follow Up Previous with congenital heart defect, currently , second trimester Overview History: PV stenosis in prior daughter was [...] on the particular type of CHD. Plan: [x] Specialized anatomic survey at 18-22 weeks [x] Offer echocardiogram with pediatric cardiology Pre-existing type 2 diabetes mellitus during in second trimester Overview History & Counseling Diagnosed 2020 History of DKA? no Last hemoglobin A1C: 9.5% on 08/04/24 Pre- regimen: metformin, ozempic MFM counseling: completed 08/19/2024 Dexcom: sent share request on 08/19/24, added to DM Plan - Current regimen: 11/24/2024 (no changes made, patient no longer using Dexcom, now has khloe, will obtain login) Glargine Glargine 48u qAM Nimivbl84/22/22 - Physician adjusting insulin dosage: MFM [x] Counseling performed [x] Diabetes education [x] Recommend weekly review of BG/insulin data to adjust insulin dosing [x] Glucagon prescribed by primary OB [x] Referral to ophthalmology for comprehensive eye exam - up to date [] Baseline CMP, UPC - with primary OB [] A1c qTrimester [x] 1st T: 9.5% (08/04/24) [] 2nd T: [] 3rd T: [x] First trimester TSH 1.09 [x] ASA starting at 12 weeks gestation [] Baseline EKG, consider maternal TTE - with primary OB [x] Specialized anatomy ultrasound at 18-20 weeks [x] echocardiogram at 20-22 weeks [] Serial growth scans starting at 24 weeks [] Twice weekly testing starting at 32 weeks [] insulin plan by 32 weeks [] Delivery at 39 0/7-39 6/7 (36 0/7 to 38 6/7 with vascular complications or poorly controlled) Relevant Orders US Ob Follow Up 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 Overview - s/p counseling Plan/Recommendations [x] Growth ultrasounds per recommendations for T2DM History of LEEP (loop electrosurgical excision procedure) of cervix complicating in first trimester Overview - s/p counseling - normal CL at time of anatomy Plan Routine care Chronic hypertension affecting - Primary Overview Diagnosis: ~2018 Pre- medications: lisinopril S/p counseling 08/19/2024 Current medication regimen: no medications 10/14/2024 Plan: [x] Low dose ASA 81 mg starting at 12 weeks - starting 08/19/2024 [] Baseline labs (CBC, CMP, UPC) - with primary OB needs CMP [] Baseline EKG - with primary OB [] Baseline ECHO (if dx >4yrs or >30) - pt reports this was denied by insurance, now has secondary insurance so may consider re-ordering pending EKG [] Growth scans starting at 24 weeks every 4 weeks [] If on medications, weekly surveillance starting at 32 weeks [] Delivery at 37w0d - 39w6d is recommended, although we discussed the possibility of earlier delivery for uncontrolled hypertension or preeclampsia. Relevant Orders US Ob Follow Up Thank you again for allowing us to participate in the care of your patient, please do not hesitate to contact our office if you have further questions. Sincerely, Amber Cook MD Maternal Medicine [facility] This was a telemedicine visit with Penny Nieto which took place via Real-time video connection (InTouch, Zoom or similar). During the visit, I was located in the office and the patient was located in the CDL office in the [facility]. The patient visit started at 11:05 and ended at 11:15. My total encounter time on 11/24/24 was 20 minutes which was spent in the activities documented in the note. This includes time spent prior to the visit and after the visit in direct care of the patient. This time does not include time spent in any separately reportable services. The patient: has been informed that the visit may not be secure and acknowledged the information. After being given an opportunity to ask questions about and discuss this type of visit, they verbally consented to proceeding with the telephone/video visit and understand that this service replaces an office visit. Progress Notes - Documentati on - 10/26/2024 - GA:21w4d 10/26/2024 - w4d - Sherry Luna MD Images from the original note were not included. Glycemic Control Meeting 10/27/2024 This patient was discussed at the glycemic control meeting on 10/27/2024. I have analyzed and interpreted > 72 hours of ambulatory continuous glucose monitoring of interstitial fluid via a subcutaneous sensor for Penny Nieto. Overall good glycemic control with mildly elevated average fasting values. However, due to inconsistent patterns in fasting values being elevated would consider one more week of data valuable before making insulin adjustments in Glargine dosing. Will also keep Humalog dosing the same for now given overall appropriate mealtime control. The following adjustments have been proposed: - Current regimen: 10/27/2024 - no changes Glargine 40 units qAM Humalog This note has been sent to MFM RN for coordination of patient care and to communicate proposed adjustments. The problem list has been updated. I have spent 5 total minutes on remote diabetes management. Sherry Luna MD Manager Statistical Programming Division of Maternal- Medicine and Ultrasound Department of Obstetrics and Gynecology [facility] Progress Notes - Documentati on - 10/19/2024 - GA:20w4d 10/19/2024 - 20w4d - Cierra Rivera RN Images from the original note were not included. Cosigned by Ava Ellington MD at 10/20/2024 11:02 AM CDT Associated attestation - Ava Ellington MD - 10/20/2024 11:02 AM CDT Plan - Current regimen: 10/20/2024 Glargine 40 units qAM Humalog > I have analyzed and interpreted > 72 hours of ambulatory continuous glucose monitoring of interstitial fluid via a subcutaneous sensor for Penny Nieto. I have made the recommendations above for diabetes management. 10/20/2024 Progress Notes - Telemedicin e - 10/14/2024 - GA:19w6d 10/14/2024 - 19w6d - Amber Cook MD Images from the original note were not included. MFM Return Consult Visit 10/14/2024 Dear Provider It was a pleasure meeting again with our mutual patient in continued consultation. Penny Nieto is a 33 y.o. at 19w6d by who is comanaged with Dr. Hayward. Her is complicated by cHTN, T2DM, marginal CI, and history of LEEP . Subjective: She reports feeling well. Denies vaginal bleeding, loss of fluid, contractions. Reports positive movement. Having a boy, planning to name him Sherman Objective: BP 125/77 Pulse 80 Wt 187 lb (84.8 kg) LMP 05/28/2024 (Approximate) BMI 33.13 kg/m General: alert, cooperative, in no distress Ultrasound: 10/14/2024 1. 19w 6d IUP for evaluation of anatomy 2. The measurements are consistent with previously established dating criteria. 3. No structural malformations are identified within the limits of ultrasound, however the anatomic survey was incomplete with the suboptimally visualized structures listed above. Ultrasound cannot diagnose all anomalies 4. Normal cervical length on transvaginal ultrasound 5. Normal adnexa, bilaterally 6. Marginal placental cord insertion Please see report for full details. Assessment/Plan: Penny Nieto is a 33 y.o. at 19w6d with a complicated by the following: Problem List joe 03/04/25 Previous with congenital heart defect, currently , first trimester Overview History: PV stenosis in prior daughter was [...] weeks [] Offer echocardiogram with pediatric cardiology Pre-existing type 2 diabetes mellitus during in second trimester - Primary Overview History & Counseling Diagnosed 2020 History of DKA? no Last hemoglobin A1C: 9.5% on 08/04/24 Pre- regimen: metformin, ozempic MFM counseling: completed 08/19/2024 Dexcom: sent share request on 08/19/24, added to DM Plan - Current regimen: 10/06/2024 Glargine 36u qAM >40 units qAM Humalog 07/02/15 units before meals > Humalog - Physician adjusting insulin dosage: MFM [x] Counseling performed [x] Diabetes education [x] Recommend weekly review of BG/insulin data to adjust insulin dosing [x] Glucagon prescribed by primary OB [x] Referral to ophthalmology for comprehensive eye exam - up to date [] Baseline CMP, UPC - with primary OB [] A1c qTrimester [x] 1st T: 9.5 08/04/24 [] 2nd T: [] 3rd T: [x] First trimester TSH 1.09 [x] ASA starting at 12 weeks gestation [] Baseline EKG, consider maternal TTE - with primary OB [] Specialized anatomy ultrasound at 18-20 weeks - ordered [] echocardiogram at 20-22 weeks [] Serial growth scans starting at 24 weeks [] Twice weekly testing starting at 32 weeks [] insulin plan by 32 weeks [] Delivery at 39 0/7-39 6/7 (36 0/7 to 38 6/7 with vascular complications or poorly controlled) 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 Overview Counseling Reviewed with patient that a marginal cord insertion occurs when the umbilical cord inserts within 2cm of the placental edge. This occurs in approximately 7% of morales and 25% of twin pregnancies. Risk factors include advanced maternal age, female fetus, and previous marginal cord insertion. Overall outcomes are very good, but there is an increased risk of pre-eclampsia, low birthweight, and NICU admission. For this reason we recommend assessment of growth. Delivery is recommended at term and section should be reserved for usual obstetric indications. Plan/Recommendations [x] Growth ultrasounds per recommendations for T2DM History of LEEP (loop electrosurgical excision procedure) of cervix complicating in first trimester Overview Counseling 08/19/2024: While some studies have suggested [...] no further cervical length screening is recommended. Chronic hypertension affecting Overview Diagnosis: ~2017 Pre- medications: lisinopril S/p counseling 08/19/2024 Current medication regimen: no medications 10/14/2024 Plan: [x] Low dose ASA 81 mg starting at 12 weeks - starting 08/19/2024 [] Baseline labs (CBC, CMP, UPC) - with primary OB needs CMP [] Baseline EKG - with primary OB [] Baseline ECHO (if dx >4yrs or >30) - pt reports this was denied by insurance, now has secondary insurance so may consider re-ordering pending EKG [] Growth scans starting at 24 weeks every 4 weeks [] If on medications, weekly surveillance starting at 32 weeks [] Delivery at 37w0d - 39w6d is recommended, although we discussed the possibility of earlier delivery for uncontrolled hypertension or preeclampsia. Thank you again for allowing us to participate in the care of your patient, please do not hesitate to contact our office if you have further questions. Sincerely, Amber Cook MD Maternal Medicine [employer] This was a telemedicine visit with Penny Nieto which took place via Real-time video connection (InTouch, Zoom or similar). During the visit, I was located in the office and the patient was located in the [facility] office in the [facility]. The patient visit started at 11:50 and ended at 12:00. My total encounter time on 10/14/24 was 20 minutes which was spent in the activities documented in the note. This includes time spent prior to the visit and after the visit in direct care of the patient. This time does not include time spent in any separately reportable services. The patient: has been informed that the visit may not be secure and acknowledged the information. After being given an opportunity to ask questions about and discuss this type of visit, they verbally consented to proceeding with the telephone/video visit and understand that this service replaces an office visit. Progress Notes - Documentati on - 10/06/2024 - GA:18w5d 10/06/2024 - 18wd - Sherry Luna MD Images from the original note were not included. Glycemic Control Meeting 10/06/2024 This patient was discussed at the glycemic control meeting on 10/06/2024. I have analyzed and interpreted > 72 hours of ambulatory continuous glucose monitoring of interstitial fluid via a subcutaneous sensor for Penny Nieto. Overnight highs largely due to evening mealtime excursion. Recommend increasing dinner insulin to 15 units. The following adjustments have been proposed: - Current regimen: 10/06/2024 Glargine 36u qAM Humalog 12 units before meals > Humalog 07/02/15 This note has been sent to MFM RN for coordination of patient care and to communicate proposed adjustments. The problem list has been updated. I have spent 5 total minutes on remote diabetes management. Sherry Luna MD Manager Statistical Programming Division of Maternal- Medicine and Ultrasound Department of Obstetrics and Gynecology [facility] Progress Notes - Documentati on - 09/29/2024 - GA:17w5d 09/29/2024 - 17wd - Sherry Luna MD Images from the original note were not included. Glycemic Control Meeting 09/29/2024 This patient was discussed at the glycemic control meeting on 09/29/2024. I have analyzed and interpreted > 72 hours of ambulatory continuous glucose monitoring of interstitial fluid via a subcutaneous sensor for Penny Nieto. Overall appropriate glycemic control with improving overnight values. Some postprandial elevations, will increase mealtime insulin modestly. The following adjustments have been proposed: - Current regimen: 09/29/2024 Glargine 36u qAM Humalog 10 > Humalog 12 units before meals This note has been sent to M RN for coordination of patient care and to communicate proposed adjustments. The problem list has been updated. I have spent 5 total minutes on remote diabetes management. Sherry Luna MD Manager Statistical Programming Division of Maternal- Medicine and Ultrasound Department of Obstetrics and Gynecology [facility] Progress Notes - Documentati on - 09/28/2024 - GA:17w4d 09/28/2024 - 17w4d - Cierra Rivera RN Images from the original note were not included. Progress Notes - Documentati on - 09/21/2024 - GA:16w4d 09/21/2024 - 16w4d - Maria Luisa Hector MD Images from the original note were not included. Current regimen: 09/22/2024 Glargine 32u qAM > 36u qAM Humalog 10 units before meals I have analyzed and interpreted > 72 hours of ambulatory continuous glucose monitoring of interstitial fluid via a subcutaneous sensor for Penny Nieto. I have made the recommendations above for diabetes management. Maria Luisa Hector MD Maternal Medicine 09/22/2024 TECHNOLOGY ENGINEERING TECHNOLOGIST TECHNOLOGY ENGINEERING TECHNOLOGIST Progress Notes - Telemedicin e - 09/16/2024 - GA:15w6d 09/16/2024 - 15w6d - Maria Luisa Hector MD Images from the original note were not included. MFM Return Consult Visit 09/16/[address] Morales, It was a pleasure meeting again with our mutual patient in continued consultation. Penny Nieto is a 33 y.o. at 15w6d whose is complicated by T2DM, CHTN, h/o LEEP, prior child with pulmonary stenosis. Subjective: She reports no complaints. Had one episode of hypoglycemia at work. Thinks her Dexcom is not accurate when it is reporting BG in 60s. No vaginal bleeding or cramping. Objective: LMP 05/28/2024 (Approximate) General: NAD Remainder of physical exam not performed due to telemedicine visit Assessment/Plan: Penny Nieto is a 33 y.o. at 15w6d with a complicated by the following: Pre-existing type 2 diabetes mellitus during in second trimester 09/16/24 CGM review: Past two days with normal fasting values and rare postprandial elevation. Patient states that she changed sensor on Saturday and feels that new sensor is more accurate. Plan - Current regimen: 09/16/2024 - no changes Glargine 32u qAM Humalog 10 units before meals - Physician adjusting insulin dosage: MFM [x] Counseling performed [x] Diabetes education [x] Recommend weekly review of BG/insulin data to adjust insulin dosing [x] Glucagon prescribed by primary OB [x] Referral to ophthalmology for comprehensive eye exam - last 3 years, will make appointment [] Baseline CMP, UPC - with primary OB [] A1c qTrimester [x] 1st T: 9.5 08/04/24 [] 2nd T: [] 3rd T: [x] First trimester TSH 1.09 [x] ASA starting at 12 weeks gestation [] Baseline EKG, consider maternal TTE - with primary OB [] Specialized anatomy ultrasound at 18-20 weeks - ordered [] echocardiogram at 20-22 weeks [] Serial growth scans starting at 24 weeks [] Twice weekly testing starting at 32 weeks [] insulin plan by 32 weeks [] Delivery at 39 0/7-39 6/7 (36 0/7 to 38 6/7 with vascular complications or poorly controlled) Chronic hypertension affecting Diagnosis: ~2017 Pre- medications: lisinopril S/p counseling 08/19/2024 Current medication regimen: no medications 09/16/2024 Plan: [x] Low dose ASA 81 mg starting at 12 weeks - starting 08/19/2024 [] Baseline labs (CBC, CMP, UPC) - with primary OB needs CMP [] Baseline EKG - with primary OB [] Baseline ECHO (if dx >4yrs or >30) - pt reports this was denied by insurance, now has secondary insurance so may consider re-ordering pending EKG [] Growth scans starting at 24 weeks every 4 weeks [] If on medications, weekly surveillance starting at 32 weeks [] Delivery at 37w0d - 39w6d is recommended, although we discussed the possibility of earlier delivery for uncontrolled hypertension or preeclampsia. Previous with congenital heart defect, currently , first trimester History: PV stenosis in 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 Doing well now. Plan: [] Specialized anatomic survey at 18-22 weeks [] Offer echocardiogram with pediatric cardiology Supervision of high risk in second trimester Continue co-management of care with Dr. Morales Thank you for your consultation. Please don't hesitate to contact me with any questions. We will continue to follow along with Ms. Penny Nieto , and will plan to see her back in 4 weeks for a MFM visit and anatomy ultrasound. Maria Luisa Hector MD Maternal Medicine 09/16/2024 This was a telemedicine visit with Penny Nieto alone which took place via Real- time video connection ([employer], Zoom or similar).During the visit, I was located in the office and the patient was located in her home in the state of [place]. My visit with the patient started at 0847 and ended at 0856. Total encounter time was 15 minutes, which includes time spent today on pre charting, the patient encounter, and post charting. The patient: has been informed that the visit may not be secure and acknowledged the information. After being given an opportunity to ask questions about and discuss this type of visit, they verbally consented to proceeding with the telephone/video visit and understand that this service replaces an office visit. TECHNOLOGY ENGINEERING TECHNOLOGIST Progress Notes - Documentati on - 09/08/2024 - GA:14w5d 09/08/2024 - 14w5d - Sherry Luna MD Images from the original note were not included. Glycemic Control Meeting 09/08/2024 This patient was discussed at the glycemic control meeting on 09/08/2024. I have analyzed and interpreted > 72 hours of ambulatory continuous glucose monitoring of interstitial fluid via a subcutaneous sensor for Penny Nieto. Mildly increased baseline glycemic values over the day, with some lows, however lows are intermittent without a clear pattern. The following adjustments have been proposed: - Current regimen: 09/08/2024 Glargine 28u qAM > Glargine 32u qAA Humalog 10 units before meals This note has been sent to MFM RN for coordination of patient care and to communicate proposed adjustments. The problem list has been updated. I have spent 5 total minutes on remote diabetes management. Sherry Luna MD Manager Statistical Programming Division of Maternal- Medicine and Ultrasound Department of Obstetrics and Gynecology [facility] TECHNOLOGY ENGINEERING TECHNOLOGIST Progress Notes - Telemedicin e - 08/19/2024 - GA:11w6d 08/19/2024 - w6d - Gracie Fierro MD Maternal Medicine Consult Note This was a telemedicine visit with Penny and her mother which took place via Real-time video connection ([employer], Zoom or similar).During the visit, I was located in the office and the patient was located in our [place] office in the [facility]. My visit with the patient started at 1:37 and ended at 1:57. Total encounter time was 30 minutes, which includes time spent today on pre charting, the patient encounter, and post charting. The patient: has been informed that the visit may not be secure and acknowledged the information. The option of participating in a telephone or video visit during the COVID-19 public health emergency was explained to them. After being given an opportunity to ask questions about and discuss this type of visit, they verbally consented to proceeding with the telephone/video visit and understand that this service replaces an office visit. 08/19/2024 Reason for Consult: type 2 diabetes Requesting Provider: Dr. Tani Hayward MD Dear Dr. Hayward, We had the pleasure of seeing your patient Penny Nieto in our office today. As you know, [...] heart surgery. Doing well now. Transferring to [facility] 08/30/24. OB History Para Term AB Living [...] Use: Not At Risk (10/01/2022) Received from [facility] AUDIT-C Frequency of Alcohol Consumption: Never Average Number of Drinks: Patient does not drink Frequency of Binge Drinking: Never Works as [employer] at [employer] Lives with , daughter, step daughter Smoke cigarettes, cigars, E-cigs: No Beer, wine, or liquor: No Street drugs/marijuana: No Family History: No family history on file. Neural tube defects: No Down syndrome or other chromosomal anomalies: No Hemophilia, sickle cell, bleeding/clotting disorder: No Muscular dystrophy: No Cystic fibrosis: No Intellectual disability or Fragile X: No Abril disease: No Other defects or genetic disorders: prior daughter with pulmonary stenosis Dating: Estimated Date of Delivery: 03/04/25 based on LMP c/w 9w CRL Review of Systems Review of systems per HPI and otherwise all systems are negative Physical Exam Vitals BP 129/80 Pulse 80 Ht 160 cm (5' 3) Wt 175 lb (79.4 kg) LMP 05/28/2024 [...] report for full details Assessment: Ms. Penny Nieto is a 33 y.o. at 11w6d by [...] first trimester [x] Co-management vs. [] Full [facility] Care; [] Red Team [x] Blue Team Referring Provider: Trent Levin [phone] > Transferring to [facility] 08/30/24. [] or Medicare Insurance [x] [...] for MFM telehealth visit Gracie Fierro MD Manager Statistical Programming Division of Maternal- Medicine TECHNOLOGY ENGINEERING TECHNOLOGIST Progress Notes - Abstract - 08/11/2024 - GA:10w5d 08/11/2024 - 10w5d - Kermit Sweeney RMA Ob records in media TECHNOLOGY ENGINEERING TECHNOLOGIST Last Filed Vital Signs Vital Sign Reading Time Taken Comments Blood Pressure 117/76 12/23/2024 10:41 AM CDT Pulse 85 12/23/2024 10:41 AM CDT Temperature - - Respiratory Rate - - Oxygen Saturation - - Inhaled Oxygen Concentration - - Weight 89.9 kg (198 lb 3.2 oz) 12/23/2024 10:41 AM CDT Height 160 cm (5' 3) 12/23/2024 10:41 AM CDT Body Mass Index 35.11 12/23/2024 10:41 AM CDT Plan of Treatment Health Maintenance Due Date Last Done Comments Cervical Cancer Screening 1990 Depression Screening 1990 Hepatitis C Screening 1990 Varicella Vaccines (1 of 2 - 13+ 2-dose series) 11/12/2004 Regular Well Visit/Exam 18-64 11/12/2009 Covid-19 Vaccine (2023- season) 2024 10/06/2020, 09/07/2020 DTaP/Tdap/Td Vaccine (9 - Td or Tdap) 06/06/2033 06/06/2023, 07/28/2015, 01/31/2006, Additional history exists Hepatitis B Screening Completed 03/05/1997 , 11/03/1996, 09/29/1996 HPV Vaccines Completed 09/14/2020, 04/22, 03/01/2020 Influenza [...] Supervision of high risk in second trimester US OB FOLLOW UP Schedule Routine, Read Routine (OP Routine) 11/24/2024 10:44 AM CDT Pre-existing type 2 diabetes mellitus during in second trimester Chronic hypertension affecting Supervision of high risk in second trimester ECHOCARDIOGRAM Routine 11/04/2024 8:44 AM CDT Supervision of high risk in second trimester Pre-existing type 2 diabetes mellitus during in second trimester US OB LIMITED Schedule Routine, Read Routine (OP Routine) 10/28/2024 10:47 AM CDT Pre-existing type 2 diabetes mellitus during in second trimester Chronic hypertension affecting Supervision of high risk in second trimester US OB DETAIL ANATOMY SINGLE OR FIRST GESTATION Schedule Routine, Read Routine (OP Routine) 10/14/2024 10:44 AM CDT Chronic hypertension affecting Pre-existing type 2 diabetes mellitus during in second trimester Previous with congenital heart defect, currently , first trimester from Last 3 Months Results * US Ob Follow Up (12/23/2024 [...] IMG OB US PROCEDURES Final R esult * US Ob Follow Up (11/24/2024 10:44 AM CDT) Fetus# Fetus1 VIEWPOINT Estimated Weight 738 g&grams VIEWPOINT Placenta Details posterior, Previa-no VIEWPOINT Presentation Breech VIEWPOINT Anatomical Region Laterality Modality Abdomen N/A Ultrasound 11/24/2024 10:4 6 AM CDT Impressions 11/24/2024 11:10 AM CDT IUP at 25w 5d for evaluation of growth assessment. Breech presentation. The interval growth has been appropriate. The EFW plots at the 12%. The amniotic fluid volume measured 12 cm Narrative Procedure Note Amber Cook MD - 11/24/2024 IMPRESSION: IUP at 25w 5d for evaluation of growth assessment. Breech presentation. The interval growth has been appropriate. The EFW plots at the 12%. The amniotic fluid volume measured 12 cm us Tani Hayward MD IMG OB US PROCEDURES Final R esult * Echocardiogram (11/04/2024 8:44 AM CDT) Anatomical Region Laterality Modality Ultrasound 11/04/2024 7:45 AM CDT Narrative 11/04/2024 8:39 AM CDT [facility] Echo Report [address] [address] Patient Name: PENNY NIETO Study Type: Echo Patient : 1990 Exam Date: 11/04/2024 Age: 33Y Exam Time: 7:45:00 AM Referring MD: GOODMAN ALAMO Height: 63in Weight: 191.7lb BSA: 1.9 m2 Sex: FEMALE BP: 124/80 Wax Cutter: Gareth Hernandez. Stat.: Outpatient Account:[id number] Indications for Study:MATERNAL DIABETES 775.1 Procedures: Echocardiogram SUMMARY: Initial echocardiogram (2D, color, Doppler) performed on a 22 6/7 week single fetus JOE (03/04/2025). Study quality is good. The fetus is in the breech position. Normal echocardiogram There is levocardia noted. Balanced four chamber view with qualitatively normal systolic function. Normally related great vessels. No inflow or outflow tract obstruction. No obvious VSD. No valvar regurgitation. Unobstructed aortic and ductal arches. Left aortic arch. At least 2 pulmonary veins drain normally to the LA. Normal systemic venous return. Normal heart rate, 145-153 bpm with 1:1 AV conduction. No pericardial effusion. Three vessel cord noted, with normal Doppler patterns. Normal ductus venosus Doppler. Normal interventricular septal thickness, 1.9mm. Atria: Situs: Solitus. RA Size: Normal. LA Size: Normal. Septum: PFO. Defect sz. Moderate Shunt: [id number] Ventricles: D-looped LV size: Normal. LV function:Normal. Rv size: Normal. RV function: Normal. IVS: Motion: Normal. Defect Type/Size: None./None. Shunt: None. Grt Vessls: Normal. Aortic Root: Normal. MPA: Normal LPA: Normal. RPA: Normal. Aortic Arch: Unobstructed Ductus Arteriosus: 79 cm/sec Systm Veins: SVC: Normal. IVC: Normal. Pulm Veins: Visualized: 2/4. Connections: Normal. Pericardium: Normal Mitral Valve: Biphasic Structure: Normal. Stenosis: No. Regurgitation: No. Tricuspid Valve: Biphasic Structure: Normal. Stenosis:No. Regurgitation: No. Pulmonary Valve: Flow velocity 56 cm/sec Structure: Normal. Stenosis: No. Regurgitation: No. Aortic Valve: Flow velocity 84 cm/sec Structure: Normal. Stenosis: No. Regurgitation: No. Pulsatility index: Ductal Arch: 2.5 cardiac rhythm: 1:1 AV conduction Rate: 145-153 bpm FINDINGS: Signed 11/04/2024 08:39 AM Pam Pérez MD Procedure Note Pam Pérez MD - 11/04/2024 [facility] Echo Report [address] [address] Patient Name: PENNY NIETO Study Type: Echo Patient : 1990 Exam Date: 11/04/2024 Age: 33Y Exam Time: 7:45:00 AM Referring MD: GOODMAN ALAMO Height: 63in Weight: 191.7lb BSA: 1.9 m2 Sex: FEMALE BP: 124/80 Wax Cutter: Gareth Ames Pat. Stat.: Outpatient Account:[id number] Indications for Study:MATERNAL DIABETES 775.1 Procedures: Echocardiogram SUMMARY: Initial echocardiogram (2D, color, Doppler) performed on a 22 6/7 week single fetus JOE (03/04/2025). Study quality is good. The fetus is in the breech position. Normal echocardiogram There is levocardia noted. Balanced four chamber view with qualitatively normal systolic function. Normally related great vessels. No inflow or outflow tract obstruction. No obvious VSD. No valvar regurgitation. Unobstructed aortic and ductal arches. Left aortic arch. At least 2 pulmonary veins drain normally to the LA. Normal systemic venous return. Normal heart rate, 145-153 bpm with 1:1 AV conduction. No pericardial effusion. Three vessel cord noted, with normal Doppler patterns. Normal ductus venosus Doppler. Normal interventricular septal thickness, 1.9mm. Atria: Situs: Solitus. RA Size: Normal. LA Size: Normal. Septum: PFO. Defect sz. Moderate Shunt: [id number] Ventricles: D-looped LV size: Normal. LV function:Normal. Rv size: Normal. RV function: Normal. IVS: Motion: Normal. Defect Type/Size: None./None. Shunt: None. Grt Vessls: Normal. Aortic Root: Normal. MPA: Normal LPA: Normal. RPA: Normal. Aortic Arch: Unobstructed Ductus Arteriosus: 79 cm/sec Systm Veins: SVC: Normal. IVC: Normal. Pulm Veins: Visualized: 2/4. Connections: Normal. Pericardium: Normal Mitral Valve: Biphasic Structure: Normal. Stenosis: No. Regurgitation: No. Tricuspid Valve: Biphasic Structure: Normal. Stenosis:No. Regurgitation: No. Pulmonary Valve: Flow velocity 56 cm/sec Structure: Normal. Stenosis: No. Regurgitation: No. Aortic Valve: Flow velocity 84 cm/sec Structure: Normal. Stenosis: No. Regurgitation: No. Pulsatility index: Ductal Arch: 2.5 cardiac rhythm: 1:1 AV conduction Rate: 145-153 bpm FINDINGS: Signed 11/04/2024 08:39 AM Pam Pérez MD us Amber Cook MD CV ECHO PROCEDURES Final Res ult * US Ob Limited (10/28/2024 10:47 AM CDT) Fetus# Fetus1 VIEWPOINT Placenta Details posterior, Previa-no VIEWPOINT Presentation Breech VIEWPOINT Anatomical Region Laterality Modality Abdomen N/A Ultrasound 10/28/2024 10:4 8 AM CDT Impressions 10/28/2024 11:11 AM CDT IUP at 21w6d who presents for completion of anatomic survey. 1. The anatomic survey is completed. There is a left-sided EIF but no other abnormalities seen. In the setting of a LR NIPT (per patient report), this is a variant of normal. A echo is recommended for DM and history of child with CHD. This is scheduled on 11/04 Narrative Procedure Note Ava Osborn MD - 10/28/2024 IMPRESSION: IUP at 21w6d who presents for completion of anatomic survey. 1. The anatomic survey is completed. There is a left-sided EIF but noother abnormalities seen. In the setting of a LR NIPT (per patientreport), this is a variant of normal. A echo is recommended for DM and history of child with CHD. This isscheduled on 11/04 us Tani Hayward MD [facility] OB US PROCEDURES Final R esult * US Ob Detail Anatomy Single Or First Gestation (10/14/2024 10:44 AM CDT) Fetus# Fetus1 VIEWPOINT Estimated Weight 302 g&grams VIEWPOINT Placenta Details posterior, Previa-no VIEWPOINT Presentation Vertex VIEWPOINT Anatomical Region Laterality Modality Body N/A Ultrasound 10/14/2024 10:4 5 AM CDT Impressions 10/14/2024 11:51 AM CDT 1. 19w 6d IUP for evaluation of anatomy 2. The measurements are consistent with previously established dating criteria. 3. No structural malformations are identified within the limits of ultrasound, however the anatomic survey was incomplete with the suboptimally visualized structures listed above. Ultrasound cannot diagnose all anomalies 4. Normal cervical length > 3cm on transvaginal ultrasound 5. Normal adnexa, bilaterally 6. Marginal placental cord insertion Narrative Procedure Note Amber Cook MD - 10/14/2024 IMPRESSION: 1. 19w 6d IUP for evaluation of anatomy 2. The measurements are consistent with previously establisheddating criteria. 3. No structural malformations are identified within the limits ofprenatal ultrasound, however the anatomic survey was incomplete with thesuboptimally visualized structures listed above. Ultrasound cannotdiagnose all anomalies 4. Normal cervical length > 3cm on transvaginal ultrasound 5. Normal adnexa, bilaterally 6. Marginal placental cord insertion us Tani Hayward MD [facility] OB US PROCEDURES Final R esult from Last 3 Months Insurance [employer] Care Teams Supervisor [employer] Relationship Specialty Start Date End Date No, Physician PCP - General 08/04/24
--- OUTSIDE RECORDS SUMMARY | 2024-12-24 09:46 | XMS_ITS | Encounter Summary ---
Author Organization [facility] Address [address] [place] [address] Phone Care Team Providers Care Tile Decorator Name Role Phone No, Physician Primary Care Provider [phone] Reason for Referral * Diagnostic Imaging (Routine) - Pending Review Specialty Diagnoses / Procedures Referred By Patricio tovar Referred To Contact Diagnoses Pre-existing type 2 diabetes mellitus during in third trimester Supervision of high risk in second trimester Chronic hypertension affecting Procedures US Ob Follow Up Tani Hayward MD [address] [place] [id number] Phone: tel: fax: [facility] (All Locations) Referral ID Status Reason Start Date Expiration Date V isits Requested Visits Authorized [id number] Pending Review 12/23/2024 01/22/2026 1 1 Encounter Details Date Type Department Care Team (Late st Contact Info) Description 12/23/2024 11:15 AM CDT Telemedicine [facility] Physicians [facility] Obstetrics and Gynecology [address] [facility] [address] [place] [address] Pre-existing type 2 diabetes mellitus during in third trimester (Primary Dx); Supervision of high risk in second trimester; Chronic hypertension affecting Social History Tobacco Use Types Packs/Day Years Used Date Smoking Tobacco: Never Smokeless Tobacco: Never Estimated Date of Delivery Comme nts Yes 03/04/2025 Based on last me nstrual period of 05/28/2024 (Approximate) Sex and Gender Information Value Date Recorded Sex Assigned at Not on file Legal Sex Female 9:48 AM [employer] Gender Identity Not on file Sexual Orientation Not on file documented as of this encounter Last Filed Vital Signs Vital Sign Reading [...] Mass Index 35.11 12/23/2024 10:41 AM CDT documented in this encounter Plan of Treatment Scheduled Orders Name Type Priority Associated Diagnoses Orde r Schedule US Ob Follow Up Imaging Schedule Routine , Read Routine (OP Routine) Pre-existing type 2 diabetes mellitus during in third trimester Supervision of high risk in second trimester Chronic hypertension affecting Expected: 12/23/2024, Expires: 12/23/2025 documented as of this encounter Visit Diagnoses Diagnosis Pre-existing type 2 diabetes mellitus during in third trimester- Primary Supervision of high risk in second trimester Chronic hypertension affecting documented in this encounter Care Teams Tile Decorator Relationship Specialty Start Date End Date No, Physician PCP - General 08/04/24 documented as of this encounter
--- OUTSIDE RECORDS SUMMARY | 2024-12-24 09:46 | XMS_ITS | Referral Summary ---
Author Organization [facility] Address [address] [place] [address] Care Team Providers Care Conciliator Name Role Phone No, Physician Primary Care Provider [phone] Encounters Date Type Department Care Team Description 12/23/2024 11:15 AM CDT Telemedicine [facility] Obstetrics and Gynecology [address] [place] [phone] Pre-existing type 2 diabetes mellitus during in third trimester (Primary Dx); Supervision of high risk in second trimester; Chronic hypertension affecting 12/23/2024 10:30 AM CDT Ancillary Procedure [facility] Obstetrics and Gynecology [address] [place] [phone] Chronic hypertension affecting ; Pre-existing type 2 diabetes mellitus during in second trimester; Supervision of high risk in second trimester 12/22/2024 Telephone [facility] Obstetrics and Gynecology [address] [place] [phone] Ashley Valverde CMA 12/15/[address] [phone] Sherry Luna MD Glycemic control meeting 12/08/[address] [phone] Carla Govea MD 12/01/[address] [phone] Maria Luisa Hector MD 11/24/2024 11:30 AM CDT Telemedicine [facility] Obstetrics and Gynecology [address] [place] [phone] Chronic hypertension affecting (Primary Dx); Pre-existing type 2 diabetes mellitus during in second trimester; Supervision of high risk in second trimester; Previous with congenital heart defect, currently , second trimester; 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; History of LEEP (loop electrosurgical excision procedure) of cervix complicating in first trimester 11/24/2024 10:45 AM CDT Ancillary Procedure [facility] Obstetrics and Gynecology [address] [place] [phone] Pre-existing type 2 diabetes mellitus during in second trimester; Chronic hypertension affecting ; Supervision of high risk in second trimester 11/23/2024 Telephone [facility] Obstetrics and Gynecology [address] [place] [phone] Ashley Valverde CMA 11/17/[address] [phone] Sherry Luna MD Glycemic control - CGM review 11/04/2024 8:00 AM CDT Office Visit [facility] Pediatric Cardiology [facility] 2nd Floor [address] [place] [phone] Diabetes mellitus affecting in second trimester (Primary Dx); Family history of congenital heart disease 11/04/2024 7:36 AM CDT - 11/04/2024 11:59 PM CDT Hospital Encounter [facility] Pediatric Cardiology [facility] 2nd Floor [address] [place] [phone] Supervision of high risk in second trimester; Pre-existing type 2 diabetes mellitus during in second trimester Discharge Disposition: Discharge to home or self care 11/03/[address] [phone] Sherry Luna MD Glycemic control - CGM review 10/28/2024 10:45 AM CDT Ancillary Procedure [facility] Physicians [facility] Obstetrics and Gynecology [address] [phone] Pre-existing type 2 diabetes mellitus during in second trimester; Chronic hypertension affecting ; Supervision of high risk in second trimester 10/26/2024 Documentation [facility] Maternal- Medicine [address] [facility] 7th [address] [place] [phone] Cierra Rivera, RN CGM data review 10/19/2024 Documentation [facility] Maternal- Medicine [address] [facility] 7[address] [place] [phone] Cierra Rivera RN CGM data review 10/14/2024 Orders Only [facility] Maternal- Medicine [address] [facility] 7[address] [place] [address] Jennifer Rodríguez, TONI Supervision of high risk in second trimester (Primary Dx); Pre-existing type 2 diabetes mellitus during in second trimester 10/14/2024 11:45 AM CDT Telemedicine [facility] Physicians [facility] Obstetrics and Gynecology [address] [phone] Pre-existing type 2 diabetes mellitus during in second trimester (Primary Dx); History of LEEP (loop electrosurgical excision procedure) of cervix complicating in first trimester; Chronic hypertension affecting ; Previous with congenital heart defect, currently , first trimester; 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; Supervision of high risk in second trimester 10/14/2024 10:45 AM CDT Ancillary Procedure [facility] Physicians [facility] Obstetrics and Gynecology [address] [phone] Chronic hypertension affecting ; Pre-existing type 2 diabetes mellitus during in second trimester; Previous with congenital heart defect, currently , first trimester 10/06/2024 Documentation [facility] Maternal- Medicine [facility] [address] [facility] [address] [place] [phone] Sherry Luna MD 09/29/2024 Documentation [facility] Maternal- Medicine [facility] [address] [facility] [address] [place] [address] Sherry Luna MD Glycemic control - CGM 09/28/2024 Documentation [facility] Maternal- Medicine [address] [facility] 7th Floor [address] [place] [phone] Cierra Rivera RN CGM data review from Last 3 Months Allergies No known active allergies Medications aspirin [...] lunch and dinner., Reported on 12/23/2024 vit [id number]-d presley 27mg iron- 800 mcg-250 mg capsule [...] cardiology Assessment & Plan (09/16/2024 9:25 AM [employer] BLOWER): History: 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 Doing well now. Plan: [] Specialized anatomic survey at 18-22 weeks [] Offer echocardiogram with pediatric cardiology Assessment & Plan (08/19/2024 4:24 PM [facility] [employer]OWER): History: PV stenosis in prior daughter was [...] pediatric cardiology Supervision of high risk in [facility] 08/11/2024 Overview (09/16/2024): [x] Co-management vs. [] Full [facility] Care; [] Red Team [x] Blue Team Referring Provider: Trent Levin [id number] > Transferring to [facility] 08/30/24. ( Chandrakant Morales MD) [] [...] yo): Assessment & Plan (09/16/2024 9:26 AM [facility] BLOWER): Continue co-management of care with Dr. Morales Assessment & Plan (08/19/2024 4:23 PM [facility] [employer] BLOWER): [x] Co-management vs. [] Full M Care; [] Red Team [x] Blue Team Referring Provider: Trent Levin [phone] > Transferring to [facility] 08/30/24. [] or Medicare Insurance [x] [...] controlled) Assessment & Plan (09/16/2024 9:24 AM [employer] BLOWER): 09/16/24 CGM review: Past two days with [...] controlled) Assessment & Plan (08/19/2024 4:22 PM [employer] BLOWER): History Diagnosed 2020 History of DKA? no [...] 3 years, will make appointment [] Baseline [facility] [] A1c qTrimester [x] 1st T: [...] preeclampsia. Assessment & Plan (09/16/2024 9:25 AM [facility] [place] BLOWER): Diagnosis: ~2017 Pre- medications: lisinopril S/p counseling [...] preeclampsia. Assessment & Plan (08/19/2024 4:20 PM [facility] [place]OWER): Diagnosis: ~2017 Pre- medications: lisinopril Counseling 08/19/2024: We counseled [...] care Assessment & Plan (08/19/2024 4:21 PM [facility] [place] BLOWER): Counseling 08/19/2024: While some studies have suggested [...] on file Legal Sex Female 9:48 AM [employer] BLOWER Gender Identity Not on file Sexual Orientation [...] 12/23/2024 10:41 AM CDT Plan of Treatment Not on file Procedures [...] 3. The amniotic fluid volume is normal. Tani Hayward MD [facility] OB US PROCEDURES Final R esult * [...] The amniotic fluid volume measured 12 cm Tani Hayward MD [facility] OB US PROCEDURES Final R esult * Echocardiogram (11/04/2024 8:44 AM CDT) Anatomical Region Laterality Modality Ultrasound 11/04/2024 7:45 AM CDT Narrative 11/04/2024 8:39 AM CDT [facility] Heart Station Echo Report [facility] [address] Patient Name: PENNY NIETO Study Type: Echo Patient : 1990 Exam Date: 11/04/2024 Age: 33Y Exam Time: 7:45:00 AM Referring MD: GOODMAN ALAMO Height: 63in Weight: 191.7lb BSA: 1.9 m2 Sex: FEMALE BP: 124/80 [employer] Consultant: Gareth Ayala Stat.: Outpatient Account:[id number] Indications for Study:MATERNAL DIABETES 775.1 Procedures: Echocardiogram [...] Normal. Septum: PFO. Defect sz. Moderate Shunt: [id number] Ventricles: D-looped LV size: Normal. LV function:Normal. [...] Procedure Note Pam Pérez MD - 11/04/2024 [facility] Heart Station Echo Report [address] [address] Patient Name: PENNY NIETO Study Type: Echo Patient : 1990 Exam Date: 11/04/2024 Age: 33Y Exam Time: 7:45:00 AM Referring MD: GOODMAN ALAMO Height: 63in Weight: 191.7lb BSA: 1.9 m2 Sex: FEMALE BP: 124/80 [employer] Consultant: Gareth Hernandez. Stat.: Outpatient Account:[id number] Indications for Study:MATERNAL DIABETES 775.1 Procedures: Echocardiogram [...] Normal. Septum: PFO. Defect sz. Moderate Shunt: [id number] Ventricles: D-looped LV size: Normal. LV function:Normal. [...] isscheduled on 11/04 us Tani Hayward MD IMG OB US [...] placental cord insertion us Tani Hayward MD IMG OB US PROCEDURES Final R esult from Last 3 Months Insurance [employer] [place] PPO [place] Care Teams Conciliator Relationship Specialty Start Date End Date No, Physician PCP - General 08/04/24
[2024-12-24 10:56] LABS: HIV 1/2 Ab P24 Ag Result Negative (Negative)
[2024-12-26] MEDS: RHO(D) IMMUNE GLOBULIN 300 MCG/2 ML SYRINGE IM (12:29)
== END 2025-03-24 23:59 | disposition home or self-care (01) ==
LOC: ANHLAB 09:07
PROVIDERS: PCP Family Medicine; Visit Provider Obstetrics & Gynecology
DX: Z11.4 Encounter for screening for human immunodeficiency virus [HIV] (principal); Z11.3 Encounter for screening for infections with a predominantly sexual mode of transmission; Z29.13 Encounter for prophylactic Rho(D) immune globulin; O36.0130 Maternal care for anti-D [Rh] antibodies, third trimester, not applicable or unspecified; Z3A.00 Weeks of gestation of pregnancy not specified
CPT/HCPCS: 36415; 85014; 85018; 85461; 86703; 86850; 86900; 86901; 90384; 96372; G0432; J2790

== ENCOUNTER 2025-01-08 19:00 | Outpatient (CLI) | payer BC, MEDICAID, SELFPAY ==
[2025-01-08 19:20] VITALS: TEMP 36.6
[2025-01-08 20:01] VITALS: BP 139/78; PULSE 92
--- NOTE | 2025-01-08 20:14 | PC.NURSE ---
1899-Patient arrives to OB unit with complaints of leaking. Patient states she noticed the leaking yesterday and that it has been on and off small amounts since. Patient states it has been clear. Patient denies feeling any contractions or vaginal bleeding. Patient has positive movement. Patient states she is a type 2 diabetic and takes insulin. Patient denies any other complications this . Patient is a with an EDC of 03/04/25. 1941- RN notified CNM of patient arrival and patient complaints. RN notified CNM of FHT tracing with moderate variability and accelerations. RN notified CNM the presence of one contraction. CNM gave orders to d/c patient. 1999- RN at bedside discussing d/c instructions with patient and when to return, as well as to follow up with the provider in the office.
[2025-01-08 20:22] LABS: OBXCEM ROM Plus Negative (Negative)
== END 2025-01-08 20:00 | disposition home or self-care (01) ==
LOC: ANHOBOP 19:53 → ANHLDR 20:24
PROVIDERS: PCP Family Medicine; Visit Provider Advanced Practice Midwife
DX: O42.90 Premature rupture of membranes, unspecified as to length of time between rupture and onset of labor, unspecified weeks of gestation (principal); Z3A.00 Weeks of gestation of pregnancy not specified
CPT/HCPCS: 59025; 84112; 99199

== ENCOUNTER 2025-01-29 04:40 | Outpatient (CLI) | payer BC, MEDICAID, SELFPAY ==
--- OUTSIDE RECORDS SUMMARY | 2025-01-29 05:20 | XMS_ITS | Data Portability ---
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 Plan of Treatment Reminders Order Date Submit Date Provider Last Modified By Organization Details Last Modified Time Details Appointments None recorded. Lab PPD (purified protein derivative ), skin test 2015 016 [facility] [address] [place], [address], 6 16:01:28 PPD (purified protein derivative ), skin test 2015 016 [facility]), [address] [place], [address], 6 11:10:55 Referral endocrinol ogy referral - Patient with clinical goiter and thyroid symptoms; however labs and thyroid ultrasound normal. 2015 016 [email or web address] Samuel Stewart MD, [address] [place], [address], 6 10:25:33 Procedures None recorded. Surgeries None recorded. Imaging electromyo gram/nerve conduction study - right upper extremity pain and paresthesi a 2015 016 [facility], [address] [place], [address], 6 15:56:38 Medication Orders cyclobenza tracey 10 mg tablet 2015 016 [facility] [address] [place], [address], 6 15:02:43 naproxen 500 mg tablet 2015 016 [facility] [address] [place], [address], 6 15:02:44 prednisone 10 mg tablet 2015 016 [facility] [address] [place], [address], 6 14:30:01 naproxen 500 mg tablet 2015 016 [facility] [address] [place], [address], 6 14:30:01 Depo-Prove ra 150 mg/mL intramuscu lar suspension 2015 016 [email or web address] Not available 6 12:40:36 Celexa 20 mg tablet 2015 016 [facility] [address] [place], [address], 6 15:39:19 Depo-Prove ra 150 mg/mL intramuscu lar suspension 2015 016 [email or web address] Not available 6 11:11:32 Celexa 20 mg tablet 2015 016 [facility] [address] [place], [address], 6 11:00:00 Patient TargetsNo targets recorded. Patient Instructions Encounter Date Encounter Id Patient Instructions Last Modified By Organization Details Last Modified Time 07/28/2015 [id number] goiter: care instructions [email or web address] Not available 10/03/2015 10:46:07 learning about mood disorders [email or web address] Not available 10/03/2015 10:46:08 Follow up in 1 month for recheck on meds. Will follow up as scheduled for next depo shot hbarke Not available 07/28/2015 11:00:00 COUNSELING PROVIDED ON DIET AND EXERCISE WITH PATIENT. DISCUSSED IMPORTANCE OF HEALTHY, WELL BALANCED DIET. DISCUSSED BENEFITS OF REGULAR EXERCISE ROUTINE. hbarke Not available 07/28/2015 10:52:53 08/22/2015 [id number] learning about mood disorders [email or web address] Not available 10/03/2015 10:46:08 COUNSELING PROVIDED ON DIET AND EXERCISE WITH PATIENT. DISCUSSED IMPORTANCE OF HEALTHY, WELL BALANCED DIET. DISCUSSED BENEFITS OF REGULAR EXERCISE ROUTINE. hbarke Not available 08/22/2015 15:39:04 10/04/2015 [id number] Will follow up a s scheduled for next depo shot hbarke Not available 10/04/2015 12:17:17 COUNSELING PROVIDED ON DIET AND EXERCISE WITH PATIENT. DISCUSSED IMPORTANCE OF HEALTHY, WELL BALANCED DIET. DISCUSSED BENEFITS OF REGULAR EXERCISE ROUTINE. hbarke Not available 10/04/2015 12:17:17 11/11/2015 [id number] Will follow up i n 2 weeks for recheck; will obtain NCS to evaluate for paresthesia and pain hbarke Not available 11/11/2015 14:17:02 11/25/2015 [id number] Will check back with PT for appt. Follow up as needed [email or web address] Not available 11/25/2015 15:02:39 Reason for Referral Endocrinology Referral for G maryter Patient with clinical goiter and thyroid symptoms; however labs and thyroid ultrasound normal. Referring Physician: Vee Sykes, Family Medicine, Encounter Date: 07/28/2015 Results Created Date Observation Date Name Description Value Unit Range Abnormal Flag Note LastModifiedBy Organization Detail LastModifiedTime 07/04/20 15 07/04/2015 CMP, serum or plasm a glucose 84 mg/dL 65-99 normal Fasti ng refer ence inter primo Not Available [facility] [address] [address], [place], [address], 07/04/2015 14:57:22 07/04/20 15 07/04/2015 CMP, serum or plasm a urea nitrogen (BUN) 13 mg/dL 7-25 normal Not Available [address], [address], 07/04/2015 14:57:22 07/04/20 15 07/04/2015 CMP, serum or plasm a creatinine 0.72 mg/dL 0.50-1 .10 normal Not Available [address], [address], 07/04/2015 14:57:22 07/04/20 15 07/04/2015 CMP, serum or plasm a eGFR non-afr. burmese 118 mL/mi n/1.7 3m2 > or = 60 normal Not Available [address], [address], 07/04/2015 14:57:22 07/04/20 15 07/04/2015 CMP, serum or plasm a eGFR 137 mL/mi n/1.7 3m2 > or = 60 normal Not Available [address], [address], 07/04/2015 14:57:22 07/04/20 15 07/04/2015 CMP, serum or plasm a BUN/creatini ne ratio NOT APPLIC ABLE (calc ) 6-22 Not Available [address], [address], 07/04/2015 14:57:22 07/04/20 15 07/04/2015 CMP, serum or plasm a sodium 139 mmol/ L 135-14 6 normal Not Available [address], [address], 07/04/2015 14:57:22 07/04/20 15 07/04/2015 CMP, serum or plasm a potassium 4.2 mmol/ L 3.5-5. 3 normal Not Available [address], [address], 07/04/2015 14:57:22 07/04/20 15 07/04/2015 CMP, serum or plasm a chloride 101 mmol/ L 98-110 normal Not Available [address], [address], 07/04/2015 14:57:22 07/04/20 15 07/04/2015 CMP, serum or plasm a carbon dioxide 26 mmol/ L 19-30 normal Not Available [address], [address], 07/04/2015 14:57:22 07/04/20 15 07/04/2015 CMP, serum or plasm a calcium 9.8 mg/dL 8.6-10 .2 normal Not Available [address], [address], 07/04/2015 14:57:22 07/04/20 15 07/04/2015 CMP, serum or plasm a protein, total 8.0 g/dL 6.1-8. 1 normal Not Available [address], [address], 07/04/2015 14:57:22 07/04/20 15 07/04/2015 CMP, serum or plasm a albumin 4.7 g/dL 3.6-5. 1 normal Not Available [address], [address], 07/04/2015 14:57:22 07/04/20 15 07/04/2015 CMP, serum or plasm a globulin 3.3 g/dL_ (calc ) 1.9-3. 7 normal Not Available [address], [address], 07/04/2015 14:57:22 07/04/20 15 07/04/2015 CMP, serum or plasm a albumin/glob ulin ratio 1.4 (calc ) 1.0-2. 5 normal Not Available [address], [address], 07/04/2015 14:57:22 07/04/20 15 07/04/2015 CMP, serum or plasm a bilirubin, total 0.4 mg/dL 0.2-1. 2 normal Not Available [address], [address], 07/04/2015 14:57:22 07/04/20 15 07/04/2015 CMP, serum or plasm a alkaline phosphatase 112 U/L 33-115 normal Not Available [facility] [employer] [address], [address], 07/04/2015 14:57:22 07/04/20 15 07/04/2015 CMP, serum or plasm a AST 20 U/L 10-30 normal Not Available [address], [address], 07/04/2015 14:57:22 07/04/20 15 07/04/2015 CMP, serum or plasm a ALT 24 U/L 6-29 normal Not Available [address], [address], 07/04/2015 14:57:22 07/04/20 15 07/04/2015 CBC w/ auto diff white blood cell count 8.4 thous and/u L 3.8-10 .8 normal Not Available [address], [address], 07/04/2015 14:57:23 07/04/20 15 07/04/2015 CBC w/ auto diff red blood cell count 4.73 maricruz on/uL 3.80-5 .10 normal Not Available [address], [address], 07/04/2015 14:57:23 07/04/20 15 07/04/2015 CBC w/ auto diff hemoglobin 13.7 g/dL 11.7-1 5.5 normal Not Available [address], [address], 07/04/2015 14:57:23 07/04/20 15 07/04/2015 CBC w/ auto diff hematocrit 42.4 % 35.0-4 5.0 normal Not Available [address], [address], 07/04/2015 14:57:23 07/04/20 15 07/04/2015 CBC w/ auto diff MCV 89.6 fL 80.0-1 00.0 normal Not Available [address], [address], 07/04/2015 14:57:23 07/04/20 15 07/04/2015 CBC w/ auto diff MCH 29.0 pg 27.0-3 3.0 normal Not Available [address], [address], 07/04/2015 14:57:23 07/04/20 15 07/04/2015 CBC w/ auto diff MCHC 32.4 g/dL 32.0-3 6.0 normal Not Available [address], [address], 07/04/2015 14:57:23 07/04/20 15 07/04/2015 CBC w/ auto diff RDW 12.7 % 11.0-1 5.0 normal Not Available [address], [address], 07/04/2015 14:57:23 07/04/20 15 07/04/2015 CBC w/ auto diff platelet count 371 thous and/u L 140-40 0 normal Not Available [address], [address], 07/04/2015 14:57:23 07/04/20 15 07/04/2015 CBC w/ auto diff MPV 8.0 fL 7.5-11 .5 normal Not Available [address], [address], 07/04/2015 14:57:23 07/04/20 15 07/04/2015 CBC w/ auto diff absolute neutrophils 4351 cells /uL 1500-7 800 normal Not Available [address], [address], 07/04/2015 14:57:23 07/04/20 15 07/04/2015 CBC w/ auto diff absolute lymphocytes 3385 cells /uL 850-39 00 normal Not Available [address], [address], 07/04/2015 14:57:23 07/04/20 15 07/04/2015 CBC w/ auto diff absolute monocytes 529 cells /uL 200-95 0 normal Not Available [address], [address], 07/04/2015 14:57:23 07/04/20 15 07/04/2015 CBC w/ auto diff absolute eosinophils 101 cells /uL 15-500 normal Not Available [address], [address], 07/04/2015 14:57:23 07/04/20 15 07/04/2015 CBC w/ auto diff absolute basophils 34 cells /uL 0-200 normal Not Available [address], [address], 07/04/2015 14:57:23 07/04/20 15 07/04/2015 CBC w/ auto diff neutrophils 51.8 % normal Not Available [address], [address], 07/04/2015 14:57:23 07/04/20 15 07/04/2015 CBC w/ auto diff lymphocytes 40.3 % normal Not Available [address], [address], 07/04/2015 14:57:23 07/04/20 15 07/04/2015 CBC w/ auto diff monocytes 6.3 % normal Not Available [facility] [address] [address], [place], [address], 07/04/2015 14:57:23 07/04/20 15 07/04/2015 CBC w/ auto diff eosinophils 1.2 % normal Not Available [facility] [place] [address] [address], [place], [address], 07/04/2015 14:57:23 07/04/20 15 07/04/2015 CBC w/ auto diff basophils 0.4 % normal Not Available [facility] [place] [address] [address], [place], [address], 07/04/2015 14:57:23 07/04/20 15 07/04/2015 varic miriam [...] VZV infec tion. Not Available [facility] [address] [address], [place], [address], 07/04/2015 14:57:24 07/04/20 15 07/04/2015 TSH, serum [...] CLIEN T SERVI KATHERINE. PHONE NUMBE R: 820.6 97.83 78 Not Available [facility] [address] [address] , [place], [address], 07/04/2015 14:57:24 08/22/19 16 08/22/2015 PPD (ramona fied prote in deriv ative ), skin test TB negati ve Not Available [facility] ([place]) [address] [place], [address], 08/22/2015 15:39:05 07/01/20 15 07/01/2015 rapid strep group A, throa t Strep negati ve Not Available [facility] [employer] ([place]) [address] [place], [address], 07/01/2015 16:34:27 07/28/19 16 07/28/2015 PPD (ramona fied prote in deriv ative ), skin test TB Not Available [facility] [address] [place], [address], 07/28/2015 10:52:53 07/11/20 15 07/11/2015 US thyro id head/ neck/ sft [facility] [address] [place] [address] [facility] OGY REPORT ____ NAME: PENNY NIETO ROOM: : 1990 ACCOUN T#: [id number] BED: AGE: 24 Y ACCESS ION#: [id number] SEX: F EXAM: UTHY THYROI D HEAD/N FREDO/SF T TIS US DOS: 2014 DICTAT ED BY: KRISTEN ASKEW ORDERMando D BY: VEE SYKES ATTEND ING PHYSIC JÚNIOR: VEE SYKES PRIMAR Y CARE PHYSIC JÚNIOR: VEE SYKES ____ EXAM: Thyroi d ultras ound. Histor [...] Kristen suh on 2014 at 10:04 AM (MIDWIFE) . KRISTEN SUH MRoyaDRoya D Date/T james: 2014 10:[address] T Date/T james: 2014 10:[address] MT: [facility] [address] [facility] ([facility]) [address] [place], [address], 07/28/2015 10:56:46 07/12/20 15 07/11/2015 ultra sound , thyro id No observ ation record ed. [facility] ([facility]) [address] [place], [address], 07/28/2015 10:56:46 08/25/19 16 08/25/2015 CT neck wo [facility] [address] [place] [address] [id number] RAD[facility] OGY REPORT ____ NAME: PENNY NIETO ROOM: : 1990 ACCOUN T#: [id number] BED: AGE: 24 Y ACCESS ION#: [id number] SEX: F EXAM: CTNKS CT NECK W/O CONTRA ST DOS: 2015 DICTAT ED BY: KRISTEN ASKEW ORDERMando D BY: VEE SYKES ATTEND ING PHYSIC JÚNIOR: VEE SYKES PRIMUT Y CARE PHYSIC JÚNIOR: VEE SYKES ____ EXAM: CT of the neck withou [...] PENNY NIETO ROOM: : 1990 ACCOUN T#: [id number] BED: AGE: 24 Y ACCESS ION#: [id number] SEX: F EXAM: CTNKS CT NECK W/O CONTRA ST DOS: 2015 DICTAT ED BY: KRISTEN ASKEW ORDERE D BY: VEE SYKES ATTEND ING PHYSIC JÚNIOR: VEE SYKES PRIMAR Y CARE PHYSIC JÚNIOR: VEE SYKES ____ This docume nt is electr onical ly signed by: Kristen suh on 2015 at 09:41 AM (MIDWIFE) . KRISTEN Villarreal Date/T james: 2015 09:[address] T Date/T james: 2015 09:[address] MT: [facility] [address] [facility] ([facility]) [address] [place], [address], 10/04/2015 12:17:18 08/26/19 16 08/25/2015 CT, neck No observ ation record ed. [facility] ([facility]) [address] [place], [address], 10/04/2015 12:17:18 11/17/19 16 11/17/2015 elect romyo gram/ nerve condu ction study No observ ation record ed. [address] In-House Results [address] [place], [address], 11/18/2015 12:39:55 Result Notes None recorded. Problems Name Problem SNOMED Code Status Onset Date Resolution Date Notes Provider Name and Address Organization Details Recorded Time Paresthesia of hand 719033376 TICO Chu [address] [place] [address] LAURIE Montoya, [address], [facility] [employer] [facility] 6 15:03:21 Paresthesia of upper limb 29425116 TICO Chu [address] [place] [address] LAURIE Montoya, [address], [facility] [employer] [facility] 6 15:03:21 Cervical radiculopathy 50333412 Luan Sykes, PA [address] [place], [address], [facility] 6 15:03:21 Goiter 1491255 Active TICO Coello [address] [place] [address], [address], [facility] 6 15:03:21 Depressive disorder 78517897 Active TICO Coello [address] [place] [address], [address], [facility] 6 15:03:21 Mass of neck 673625081 Active TICO Coello [address] [place] [address], [address], [facility] 6 15:03:21 Problem Notes None recorded. Procedures Surgical History Date Name Laterality Status Provider Name and Address Organization Details Recorded Time 07/28/2015 PHQ-9 completed TICO Coello [address] [place] [address], [address], [facility] 07/28/2015 10:55:27 Imaging Results None recorded. Procedure [...] Body height Body weight Heart rate Systolic And Diastolic Provider Name and Address Organization Details Last Updated DateTime 07/28/2015 28.3 kg/m2 162.56 cm 93135.02 2576 g 74 /min 118/70 mm[Hg] Laureen [employer] 07/28/2015 10:34:24 Date Recorded Body weight Body mass index (BMI) Heart rate Body height Systolic And Diastolic Provider Name and Address Organization Details Last Updated DateTime 08/22/2015 45860.77 92 g 27.5 kg/m2 74 /min 162.56 cm 126/62 mm[Hg] Laureen [employer] 08/22/2015 15:32:55 Date Recorded Body weight Body mass index (BMI) Body height Systolic And Diastolic Provider Name and Address Organization Details Last Updated DateTime 10/04/2015 52377.186 83 g 27.3 kg/m2 162.56 cm 126/72 mm[Hg] Chelle Chapin [facility] [employer] 10/04/2015 12:08:20 Date Recorded Body mass index (BMI) Body height Heart rate Body weight Systolic And Diastolic Provider Name and Address Organization Details Last Updated DateTime 11/11/2015 28.4 kg/m2 162.56 cm 78 /min 33992.45 9524 g 120/71 mm[Hg] Sport [employer] [facility] [employer] 11/11/2015 14:05:20 Date Recorded Body weight Body height Heart rate Oxygen saturation Oxygen saturation in Arterial blood by Pulse oximetry Body mass index (BMI) Systolic And Diastolic Provider Name and Address Organization Details Last Updated DateTime 6 93230.1 4868 g 162.56 cm 114 /min 97 % 97 % 28.2 kg/m2 140/68 mm[Hg] Margaret Weir LPN [facility] [employer] 6 14:52:06 Social History Question Answer Notes LastModified by Organizat ion Details LastModified Time Tobacco Smoking Status Never Smoker [facility] [employer] 07/01/2015 16:30:03 Which Illicit Or Recreational Drugs [...] Hyperthyroidism N Kidney or Bladder Problems N Hypothyroidism N GI Problems N Depression Y COPD N Defects or [...] antigens 03/05/1997 completed TICO Coello [address] [place], [address], [facility] [employer] [facility] 07/28/2015 10:46:53 MMR 03/01/1993 completed TICO Coello [address] [place], [address], [facility] [employer] 07/28/2015 10:46:53 QYuV-Utt-ZHR 03/18/1992 TICO Llanos [address] [place] [address], [address], [facility] 07/28/2015 10:46:53 DTaP-IPV 05/26/1993 completed [address] [place] [address], [address], [facility] 07/28/2015 10:46:53 YOlM-Wpk-JVD 01/07/1992 TICO Llanos [address] [place] [address], [address], [facility] [employer] 07/28/2015 10:46:53 WBrD-Umf-VAX 05/20/1992 TICO Llanos [address] [place] [address], [address], [facility] [employer] 07/28/2015 10:46:53 MMR 01/27/1997 TICO Llanos [address] [place] [address], [address], [facility] [employer] 07/28/2015 10:46:53 Past Encounters Encounter ID Performer Location Encounter Start Date Encounter Closed Date Diagnosis/Indication Diagnosis SNOMED-CT Code Diagnosis ICD10 Code Diagnosis Note [id number] TICO Coello [address] [address] 07/01/2015 16:12:42 07/01/2015 16:46:27 Deya [id number] E04.9 [id number] TICO Coello [address] [address] 07/28/2015 10:21:19 07/28/2015 10:58:53 Deya [id number] E04.9 Depressive disorder 3548 9007 F32.9 [facility] [address] Z30.40 [id number] TICO Coello [place] [address] [place] [address] 08/22/2015 15:24:53 08/22/2015 15:39:50 Depressive disorder 78332052 F32.9 Active or passive immunization 826605052 Z23 [id number] TICO Coello [address] [address] 10/04/2015 11:47:55 10/04/2015 12:19:28 Contraception care 392438666 Z30.40 [id number] TICO Coello [address] [address] 11/11/2015 13:46:12 11/11/2015 14:18:11 Paresthesia of hand 360934847 R20.2 Paresthesi a of upper limb 72277571 R20.2 [id number] TICO Coello [address] [address] 11/25/2015 14:46:56 11/25/2015 15:03:36 Cervical radiculopathy 79345676 M54.12 Health Concerns Section Related Observation LastModified by Organization Detai ls LastModified Time None Recorded Concern Status LastModified by Organization Details LastModified Time None Recorded Advance Directives Directive None Recorded Payers Insurance Date Sequence Insurance Name Policy Number Policy Erazo Covered Member ID Erazo Member ID Guarantor Name 07/01/2015 1 *SELF PAY* Erin Nieto 12/24/2015 1 [place]: [facility] Penny Nieto [id number] Penny Nieto Notes Date Note Type Note Provider Name and Address Organization Details Recorded Time 07/28/2015 text/html Patient here tod ay for new patient appointment. Otherwise she is still needing a referral to ENDO. No other concerns to report. TICO Coello [address] [place] [address], [address], [employer] 07/28/2015 11:00:13 08/22/2015 text/html Patient here tod ay for her 2nd TB skin test and to recheck her Celexa which she states is working well. Denies any other concerns at today's visit. TICO Coello [address] [place] [address], [address], [employer] 08/22/2015 15:39:07 10/04/2015 text/html Patient here tod ay for her depo shot. She has no concerns to report at today's visit. TICO Coello [address] [place], [address], [employer] 10/04/2015 12:17:38 11/11/2015 text/html Patient here tod [...] other concerns to report. TICO Coello [address] [place], [address], [employer] 11/11/2015 14:30:09 11/25/2015 text/html Patinet here tomarlene ay for a follow up on meds and imaging. We had referred her to PT; however she has not heard from them yet. She states she has noticed some improvement with the medications. Otherwise no other concerns to report. TICO Coello [address] [place], [address], [employer] 11/25/2015 15:03:26 OBGyn Episode No OBEpisode recorded.
--- OUTSIDE RECORDS SUMMARY | 2025-01-29 05:20 | XMS_ITS | Referral Summary ---
Author Organization [facility] Address [address] [place] [address] Care Team Providers Care Engineering Tech Name Role Phone No, Physician Primary Care Provider [phone] Encounters Date Type Department Care Team Description 01/26/[address] [phone] Sherry Luna MD Glycemic control meeting 01/19/[address] [phone] Ava Ellington MD glycemic control 01/13/2025 1:45 PM CDT Telemedicine [facility] Obstetrics and Gynecology [address] [place] [phone] Pre-existing type 2 diabetes mellitus during in third trimester (Primary Dx); Supervision of high risk in second trimester; Chronic hypertension affecting 01/13/2025 12:30 PM CDT Ancillary Procedure [facility] Obstetrics and Gynecology [address] [place] [phone] Pre-existing type 2 diabetes mellitus during in third trimester; Supervision of high risk in second trimester; Chronic hypertension affecting 01/12/2025 Telephone [facility] Obstetrics and Gynecology [address] [place] [phone] Ashley Valverde CMA 01/05/[address] [phone] Sherry Luna MD Glycemic control meeting 12/29/[address] [phone] Sherry Luna MD Glycemic control meeting 12/23/2024 11:15 AM CDT Telemedicine [facility] Obstetrics and Gynecology [address] [phone] Pre-existing type 2 diabetes mellitus during in third trimester (Primary Dx); Supervision of high risk in second trimester; Chronic hypertension affecting ; Previous with congenital heart defect, currently , second trimester; 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; History of LEEP (loop electrosurgical excision procedure) of cervix complicating in first trimester 12/23/2024 10:30 AM CDT Ancillary Procedure [facility] Obstetrics and Gynecology [address] [place] [phone] Chronic hypertension affecting ; Pre-existing type 2 diabetes mellitus during in second trimester; Supervision of high risk in second trimester 12/22/2024 Telephone [facility] Obstetrics and Gynecology [address] [phone] Ashley Valverde CMA 12/15/[address] [phone] Sherry Luna MD Glycemic control meeting 12/08/[address] [phone] Carla Govea MD 12/01/[address] [phone] Maria Luisa Hector MD 11/24/2024 11:30 AM CDT Telemedicine [facility] Obstetrics and Gynecology [address] [phone] Chronic hypertension affecting (Primary Dx); Pre-existing type 2 diabetes mellitus during in second trimester; Supervision of high risk in second trimester; Previous with congenital heart defect, currently , second trimester; 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; History of LEEP (loop electrosurgical excision procedure) of cervix complicating in first trimester 11/24/2024 10:45 AM CDT Ancillary Procedure [facility] Obstetrics and Gynecology [address] [address] [place] [phone] Pre-existing type 2 diabetes mellitus during in second trimester; Chronic hypertension affecting ; Supervision of high risk in second trimester 11/23/2024 Telephone [facility] Obstetrics and Gynecology [address] [place] [phone] Ashley Valverde CMA 11/17/[address] [phone] Sherry Luna MD Glycemic control - CGM review 11/04/2024 8:00 AM CDT Office Visit [facility] Pediatric Cardiology [facility] 2nd Floor [address] [place] [phone] Diabetes mellitus affecting in second trimester (Primary Dx); Family history of congenital heart disease 11/04/2024 7:36 AM CDT - 11/04/2024 11:59 PM CDT Hospital Encounter [facility] Pediatric Cardiology [address] [place] [phone] Supervision of high risk in second trimester; Pre-existing type 2 diabetes mellitus during in second trimester Discharge Disposition: Discharge to home or self care 11/03/[address] [phone] Sherry Luna MD Glycemic control - CGM review from Last 3 Months Allergies No known active allergies Medications aspirin 81 mg chewable tablet Take 1 tablet (81 mg total) by mouth daily Active vit 83-dlaq-hsnoy-d presley 27mg iron- 800 mcg-250 mg capsule Take by mouth Active blood-glucose sensor device Use as directed to monitor blood sugars 3 each 5 05/06/202 5 Active insulin lispro (HumaLOG, ADMELOG) 100 unit/mL vial for injection Inject 16 units under the skin with breakfast, 20 units with lunch, 24 units with dinner 15 mL 3 5 Active insulin glargine 100 unit/mL (3 mL) pen for injection Inject 48 units under the skin in the morning. 15 mL 3 5 Active insulin glargine 100 unit/mL (3 mL) pen for injection Inject 32 units under the skin in the morning. 15 mL 3 5 01/14/20 25 Discontinu ed(Reorder ) insulin lispro (HumaLOG, ADMELOG) 100 unit/mL vial for injection Inject 10 unit under the skin 15-20 minutes before each meal, breakfast, lunch and dinner. 15 mL 3 5 01/06/20 25 Discontinu ed(Reorder ) Active Problems Problem Noted Date Diagnosed Date Marginal insertion of umbili mil cord affecting management of mother 10/14/2024 Overview (11/24/2024): - s/p counseling Plan/Recommendations [x] Growth ultrasounds per recommendations for T2DM Previous with [facility] heart defect, currently , third trimester 08/19/2024 Overview (12/25/2024): History: PV stenosis in prior daughter was [...] weeks [x] Offer echocardiogram with pediatric cardiology - [facility] Assessment & Plan (09/16/2024 9:25 AM AUTOMATED MANUFACTURING INSTRUCTOR): History: PV stenosis in 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 Doing well now. Plan: [] Specialized anatomic survey at 18-22 weeks [] Offer echocardiogram with pediatric cardiology Assessment & Plan (08/19/2024 4:24 PM AUTOMATED MANUFACTURING INSTRUCTOR): History: PV stenosis in prior daughter was [...] pediatric cardiology Supervision of high risk in third [facility] 08/11/2024 Overview (01/13/2025): [x] Co-management vs. [] Full [facility] Care; [] Red Team [x] Blue Team Referring Provider: Trent Levin [phone] > Transferring to [facility] 08/30/24. ( Chandrakant Morales MD) [] or Medicare Insurance [x] Dating Criteria: LMP:05/28/24 JOE:03/04/25 [x] Labs: Rh [A-], Ab [NEG], Rubella [IMM], HIV [NEG], HepBSAg [NEG], HepBSAb [], HepBCAb [], RPR [], Hep C [NEG], Varicella [], GC/CT [] [x] Aneuploidy Screening: reports LR NIPT [] Carrier Screening: [] Hgb electrophoresis: [x] CBC/Hgb: 13.8/40.8/394 [] Early 1hr GTT (if indicated): [] UCx: [] Pap: [x] LD ASA (if indicated): [] EPDS [ ]; PNBHS referral (if indicated): 2nd Trimester [x] Anatomy ultrasound: [x] CBC/1hr gtt at 24-28wks: [x] Rhogam at 28 wks (if Rh neg): A- completed with primary OB 3rd Trimester [] CBC/HIV/RPR/T&S: [] GBS: [] GC/CT (if indicated): [] testing: Twice weekly at 32 weeks (T2DM) - needs to schedule with primary OB, we will do BPP when she sees us Counseling [] MOD: Anticipate by 39 weeks (T2DM) [] Place of delivery: with primary OB Vaccines [] Flu Shot (Mar-Jun): [] COVID vaccine: [x] Tdap (27-36wks): completed [] RSV vaccine (32-36wks): [] PP HPV vaccine counseling (<=26 yo): Assessment & Plan (01/14/2025 4:11 PM CDT): Continue co-management and plan for delivery with primary OB Assessment & Plan (09/16/2024 9:26 AM AUTOMATED MANUFACTURING INSTRUCTOR): Continue co-management of care with Dr. Morales Assessment & Plan (08/19/2024 4:23 PM AUTOMATED MANUFACTURING INSTRUCTOR): [x] Co-management vs. [] Full M Care; [] Red Team [x] Blue Team Referring Provider: Trent Levin [phone] > Transferring to [facility] 08/30/24. [] or Medicare Insurance [x] Dating [...] mellitus during in third trimester 08/11/2024 Overview (01/26/2025): History & Counseling Diagnosed 2020 History of DKA? no Last hemoglobin A1C: 9.5% on 08/04/24 Pre- regimen: metformin, ozempic MFM counseling: completed 08/19/2024 Using G-mode with clinic accounts Plan - Current regimen: 01/26/2025 Glargine 44 units AM > Glargine 40 units qAM Humalog > Humalog - Physician adjusting insulin dosage: MFM - 01/26: Have had to decrease glargine for overnight hypoglycemia now 2 weeks in a row. May need to consider earlier delivery to 37-38 weeks pending course. INSULIN RECOMMENDATIONS: She was not well-controlled on her pre- Ozempic and metformin (stopped approx 4-6 months prior to ), so recommend continuation of insulin until re-establishing care with product development consultant or PCP If : Glargine 12u qAM Humalog 4u TID If not : Glargine 14u qAM Humalog 4u TID [x] Counseling performed [x] Diabetes education [x] Recommend weekly review of BG/insulin data to adjust insulin dosing [x] Glucagon prescribed by primary OB [x] Referral to ophthalmology for comprehensive eye exam - up to date [x] Baseline CMP, UPC - WNL [] A1c qTrimester [x] 1st T: 9.5% (08/04/24) [] 2nd T: [] 3rd T: recommend with next labs [x] First trimester TSH 1.09 [x] ASA starting at 12 weeks gestation [] Baseline EKG, consider maternal TTE - with primary OB [x] Specialized anatomy ultrasound at 18-20 weeks [x] echocardiogram at 20-22 weeks [] Serial growth scans starting at 24 weeks [] Twice weekly testing starting at 32 weeks - scheduled with primary OB [x] insulin plan by 32 weeks - see above [] Delivery at 39 0/7-39 6/7 (36 0/7 to 38 6/7 with vascular complications or poorly controlled) Assessment & Plan (01/14/2025 4:07 PM CDT): 01/13/25: Elevated overnight and fasting values. Excursions are appropriate with meals. Will increase basal. Discussed that lantus may need to be split to BID dosing if much higher doses are necessary. Plan - Current regimen: 01/13/2025 Glargine 40u AM > 48u AM Humalog - Physician adjusting insulin dosage: [facility] INSULIN RECOMMENDATIONS: She was not well-controlled on her pre- Ozempic and metformin (stopped approx 4-6 months prior to ), so recommend continuation of insulin until re-establishing care with product development consultant or PCP If : Glargine 12u qAM Humalog 4u TID If not : Glargine 14u qAM Humalog 4u TID [x] Counseling performed [x] Diabetes education [x] Recommend weekly review of BG/insulin data to adjust insulin dosing [x] Glucagon prescribed by primary OB [x] Referral to ophthalmology for comprehensive eye exam - up to date [x] Baseline CMP, UPC - WNL [] A1c qTrimester [x] 1st T: 9.5% (08/04/24) [] 2nd T: [] 3rd T: recommend with next labs [x] First trimester TSH 1.09 [x] ASA starting at 12 weeks gestation [] Baseline EKG, consider maternal TTE - with primary OB [x] Specialized anatomy ultrasound at 18-20 weeks [x] echocardiogram at 20-22 weeks [] Serial growth scans starting at 24 weeks [] Twice weekly testing starting at 32 weeks - scheduled with primary OB [x] insulin plan by 32 weeks - see above [] Delivery at 39 0/7-39 6/7 (36 0/7 to 38 6/7 with vascular complications or poorly controlled) Assessment & Plan (12/25/2024 5:16 PM CDT): Well controlled on current regimen. No changes. plan made. Assessment & Plan (09/16/2024 9:24 AM AUTOMATED MANUFACTURING INSTRUCTOR): 09/16/24 CGM review: Past two days with [...] controlled) Assessment & Plan (08/19/2024 4:22 PM AUTOMATED MANUFACTURING INSTRUCTOR): History Diagnosed 2020 History of DKA? no [...] 3 years, will make appointment [] Baseline [facility] [] A1c qTrimester [x] 1st T: 9.5 [...] poorly controlled) Chronic hypertension affecting 025 Overview (01/14/2025): Diagnosis: ~2018 Pre- medications: lisinopril S/p counseling 08/19/2024 Current medication regimen: no medications 12/25/2024 Plan: [x] Low dose ASA 81 mg [...] scans starting at 24 weeks every 4 weeks, ongoing [x] surveillance per T2DM plan, ongoing [] Delivery at 37w0d - 39w6d is recommended, although we discussed the possibility of earlier delivery for uncontrolled hypertension or preeclampsia. Assessment & Plan (01/14/2025 4:10 PM CDT): Normotensive today. No si/sx of preeclampsia. Precautions reviewed. Current medication regimen: no medications 12/25/2024 Plan: [x] Low dose ASA 81 mg [...] scans starting at 24 weeks every 4 weeks, ongoing [x] surveillance per T2DM plan, ongoing [] Delivery at 37w0d - 39w6d is recommended, although we discussed the possibility of earlier delivery for uncontrolled hypertension or preeclampsia. Assessment & Plan (12/25/2024 5:17 PM CDT): Continues to be normotensive and asymptomatic. Assessment & Plan (09/16/2024 9:25 AM AUTOMATED MANUFACTURING INSTRUCTOR): Diagnosis: ~2018 Pre- medications: lisinopril S/p counseling [...] preeclampsia. Assessment & Plan (08/19/2024 4:20 PM AUTOMATED MANUFACTURING INSTRUCTOR): Diagnosis: ~2017 Pre- medications: lisinopril Counseling 08/19/2024: [...] osurgical excision procedure) of cervix complicating in third trimester 08/11/2024 Overview (11/24/2024): - s/p counseling - normal CL at time of anatomy Plan Routine care Assessment & Plan (08/19/2024 4:21 PM AUTOMATED MANUFACTURING INSTRUCTOR): Counseling 08/19/2024: While some studies have suggested [...] on file Legal Sex Female 9:48 AM AUTOMATED MANUFACTURING INSTRUCTOR Gender Identity Not on file Sexual Orientation Not on file Last Filed Vital Signs Vital Sign Reading Time Taken Comments Blood Pressure 126/74 01/13/2025 12:53 PM CDT Pulse 103 01/13/2025 12:53 PM CDT Temperature - - Respiratory Rate - - Oxygen Saturation - - Inhaled Oxygen Concentration - - Weight 90.3 kg (199 lb) 01/13/2025 12:53 PM CDT Height 160 cm (5' 3) 01/13/2025 12:53 PM CDT Body Mass Index 35.25 01/13/2025 12:53 PM CDT Plan of Treatment Not on file Procedures Procedure Name Priority Date/Time Associated Diagnosis Comments US OB FOLLOW UP Schedule Routine, Read Routine (OP Routine) 01/13/2025 12:31 PM CDT Pre-existing type 2 diabetes mellitus during in third trimester Supervision of high risk in second trimester Chronic hypertension affecting US OB FOLLOW UP Schedule Routine, Read [...] 2 diabetes mellitus during in second trimester from Last 3 Months Results * US Ob Follow Up (01/13/2025 12:31 PM CDT) Fetus# Fetus1 VIEWPOINT Estimated Weight 1,865 g&grams VIEWPOINT Placenta Details posterior, Previa-no VIEWPOINT Presentation Breech VIEWPOINT Anatomical Region Laterality Modality Abdomen N/A Ultrasound 01/13/2025 12:3 2 PM CDT Impressions 01/13/2025 1:49 PM CDT IUP at 32w 6d for evaluation of growth assessment. Breech presentation. The interval growth has been appropriate. The EFW plots at the 17%. The amniotic fluid volume measured 14.7 cm The biophysical profile is 8/8 with normal breathing motion, body motion, tone and amniotic fluid volume. Narrative Procedure Note Maria Luisa Hector MD - 01/13/2025 IMPRESSION: IUP at 32w 6d for evaluation of growth assessment. Breech presentation. The interval growth has been appropriate. The EFW plots at the 17%. The amniotic fluid volume measured 14.7 cm The biophysical profile is 8/8 with normal breathing motion, body motion,tone and amniotic fluid volume. us Tani Hayward MD IMG OB US PROCEDURES Final R esult * US Ob Follow Up (12/23/2024 10:24 [...] volume is normal. us Tani Hayward MD [facility] US PROCEDURES Final R esult * [...] volume measured 12 cm Tani Hayward MD [facility] US PROCEDURES Final R esult * Echocardiogram (11/04/2024 8:44 AM CDT) Anatomical Region Laterality Modality Ultrasound 11/04/2024 7:45 AM CDT Narrative 11/04/2024 8:39 AM CDT [facility] Echo Report [facility] [address] Patient Name: PENNY NIETO Study Type: Echo Patient : 1990 Exam Date: 11/04/2024 Age: 33Y Exam Time: 7:45:00 AM Referring MD: GOODMAN ALAMO Height: 63in Weight: 191.7lb BSA: 1.9 m2 Sex: FEMALE BP: 124/80 Validation Scientist: Gareth Hernandez. Stat.: Outpatient Account:[id number] Indications for Study:MATERNAL DIABETES 775.1 Procedures: Echocardiogram [...] Normal. Septum: PFO. Defect sz. Moderate Shunt: [id number]-[id number] Ventricles: D-looped LV size: Normal. LV function:Normal. [...] Procedure Note Pam Pérez MD - 11/04/2024 [facility] Echo Report One [address] [address] Patient Name: PENNY NIETO Study Type: Echo Patient : 1990 Exam Date: 11/04/2024 Age: 33Y Exam Time: 7:45:00 AM Referring MD: GOODMAN ALAMO Height: 63in Weight: 191.7lb BSA: 1.9 m2 Sex: FEMALE BP: 124/80 Validation Scientist: Gareth Hernandez. Stat.: Outpatient Account:[id number] Indications for Study:MATERNAL DIABETES 775.1 Procedures: Echocardiogram [...] Normal. Septum: PFO. Defect sz. Moderate Shunt: Yewgu-mi-Kghg Ventricles: D-looped LV size: Normal. LV function:Normal. [...] MD CV ECHO PROCEDURES Final Res ult from Last 3 Months Insurance [employer] [place] Care Teams Engineering Tech Relationship Specialty Start Date End Date No, Physician PCP - General 08/04/24
--- OUTSIDE RECORDS SUMMARY | 2025-01-29 05:20 | XMS_ITS | Clinical Summary ---
Author Organization [facility] Address [address] [place] [address] Care Team Providers Care Ironer Hand Name Role Phone No, Physician Primary Care Provider [phone] Allergies No known active allergies Medications aspirin 81 mg chewable tablet Take 1 tablet (81 mg total) by mouth daily Active vit 89-upyw-yichp-d presley 27mg iron- 800 mcg-250 mg capsule Take by mouth Active blood-glucose sensor device Use as directed to monitor blood sugars 3 each 5 5 Active insulin lispro (HumaLOG, ADMELOG) 100 [...] [x] Offer echocardiogram with pediatric cardiology - [facility] Assessment & Plan (09/16/2024 9:25 AM BODY PRESSER): History: 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 Doing well now. Plan: [] Specialized anatomic survey at 18-22 weeks [] Offer echocardiogram with pediatric cardiology Assessment & Plan (08/19/2024 4:24 PM BODY PRESSER): History: PV stenosis in prior daughter was [...] cardiology Supervision of high risk in third trim mike 08/11/2024 Overview (01/13/2025): [x] Co-management vs. [] Full M Care; [] Red Team [x] Blue Team Referring Provider: Trent eLvin [phone] > Transferring to [facility] 08/30/24. ( Chandrakant Morales MD) [] [...] OB Assessment & Plan (09/16/2024 9:26 AM BODY PRESSER): Continue co-management of care with Dr. Morales Assessment & Plan (08/19/2024 4:23 PM BODY PRESSER): [x] Co-management vs. [] Full MFM Care; [] Red Team [x] Blue Team Referring Provider: Trent Levin [id number] > Transferring to [facility] 08/30/24. [] or Medicare Insurance [x] [...] metformin, ozempic MFM counseling: completed 08/19/2024 Using Khloe with clinic accounts Plan - Current regimen: [...] continuation of insulin until re-establishing care with food mixer assembler or PCP If : Glargine 12u qAM [...] Glargine 40u AM > 48u AM Humalog 16/20/24 - Physician adjusting insulin dosage: MFM INSULIN RECOMMENDATIONS: She was not well-controlled on her pre- Ozempic and metformin (stopped approx 4-6 months prior to ), so recommend continuation of insulin until re-establishing care with food mixer assembler or PCP If : Glargine 12u qAM [...] made. Assessment & Plan (09/16/2024 9:24 AM BODY PRESSER): 09/16/24 CGM review: Past two days with [...] controlled) Assessment & Plan (08/19/2024 4:22 PM BODY PRESSER): History Diagnosed 2020 History of DKA? no [...] asymptomatic. Assessment & Plan (09/16/2024 9:25 AM BODY PRESSER): Diagnosis: ~2017 Pre- medications: lisinopril S/p counseling [...] preeclampsia. Assessment & Plan (08/19/2024 4:20 PM BODY PRESSER): Diagnosis: ~2017 Pre- medications: lisinopril Counseling 08/19/2024: [...] care Assessment & Plan (08/19/2024 4:21 PM BODY PRESSER): Counseling 08/19/2024: While some studies have suggested [...] Type Department Care Team Description 01/26/[address] [phone] Sherry Luna MD Glycemic control meeting 01/19/[address] [phone] Ava Ellington MD glycemic control 01/13/2025 1:45 PM CDT Telemedicine [facility] Obstetrics and Gynecology [address] [place] [phone] Pre-existing type 2 diabetes mellitus during in third trimester (Primary Dx); Supervision of high risk in second trimester; Chronic hypertension affecting 01/13/2025 12:30 PM CDT Ancillary Procedure [facility] Ob[facility]etrics [facility] Gynecology [address] [place] [phone] Pre-existing type 2 diabetes mellitus during in third trimester; Supervision of high risk in second trimester; Chronic hypertension affecting 01/12/2025 Telephone [facility] Ob[facility]etrics [facility] Gynecology [address] [place] [phone] Ashley Valverde CMA 01/05/[address] [phone] Sherry Luna MD Glycemic control meeting 12/29/[address] [phone] Sherry Luna MD Glycemic control meeting 12/23/2024 11:15 AM CDT Telemedicine [facility] Ob[facility]etrics and Gynecology [address] [place] [phone] Pre-existing type 2 diabetes mellitus during in third trimester (Primary Dx); Supervision of high risk in second trimester; Chronic hypertension affecting ; Previous with congenital heart defect, currently , second trimester; 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; History of LEEP (loop electrosurgical excision procedure) of cervix complicating in first trimester 12/23/2024 10:30 AM CDT Ancillary Procedure [facility] Ob[facility]etrics and Gynecology [address] [place] [phone] Chronic hypertension affecting ; Pre-existing type 2 diabetes mellitus during in second trimester; Supervision of high risk in second trimester 12/22/2024 Telephone [facility] Ob[facility]etrics [facility] Gynecology [address] [place] [phone] Ashley Valverde CMA 12/15/[address] [phone] Sherry Luna MD Glycemic control meeting 12/08/[address] [phone] Carla Govea MD 12/01/[address] [phone] Maria Luisa Hector MD 11/24/2024 11:30 AM CDT Telemedicine [facility] Ob[facility]etrics [facility] Gynecology [address] [place] [phone] Chronic hypertension affecting (Primary Dx); Pre-existing type 2 diabetes mellitus during in second trimester; Supervision of high risk in second trimester; Previous with congenital heart defect, currently , second trimester; 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; History of LEEP (loop electrosurgical excision procedure) of cervix complicating in first trimester 11/24/2024 10:45 AM CDT Ancillary Procedure [facility] Ob[facility]etrics and Gynecology [address] [facility] [address] [place] [address] Pre-existing type 2 diabetes mellitus during in second trimester; Chronic hypertension affecting ; Supervision of high risk in second trimester 11/23/2024 Telephone [facility] Ob[facility]etrics [facility] Gynecology [address] [facility] [address] [place] [address] Ashley Valverde CMA 11/17/[address] [phone] Sherry Luna MD Glycemic control - CGM review 11/04/2024 8:00 AM CDT Office Visit [facility] Pediatric Cardiology [facility] 2nd Floor [address] [place] [phone] Diabetes mellitus affecting in second trimester (Primary Dx); Family history of congenital heart disease 11/04/2024 7:36 AM CDT - 11/04/2024 11:59 PM CDT Hospital Encounter [facility] Pediatric Cardiology [facility] 2nd Floor [address] [place] [phone] Supervision of high risk in second trimester; Pre-existing type 2 diabetes mellitus during in second trimester Discharge Disposition: Discharge to home or self care 11/03/[address] [phone] Sherry Luna MD Glycemic control - CGM review from Last 3 Months Surgical History [...] on file Legal Sex Female 9:48 AM BODY PRESSER Gender Identity Not on file Sexual Orientation [...] Estimated Date of Delivery 08/11/2024 - Present (01/29/2025) 03/04/2025 (set by Kermit Haywood RMA on 08/11/2024 based on Last Menstrual Period on 05/28/2024 (Approximate)) Dating Summary Based On JOE GA Diff Last Menstrual Period on 05/28/2024 (Approximate ) 03/04/2025 Working Ultrasound on 08/03/2024 03/04/2025 Same GA:9w4d Comment:CRL report scanned u nder Media, Vitals Pregravid Weight Height TWG (As of 01/29/2025) Pregrav id BMI 160 cm (5' 3) Notes Progress Notes - Telemedicin e - 01/13/2025 - GA:32w6d 01/13/2025 - 32w6d - Maria Luisa Hector MD Images from the original note were not included. M Return Consult Visit 01/13/[address] Morales, It was a pleasure meeting again with our mutual patient in continued consultation. Penny Nieto is a 34 y.o. at 32w6d whose is complicated by T2DM, cHTN, and Rh negative. Subjective: She reports no complaints. Denies hypoglycemia symptoms. Woke up last night to a low alert. She felt fine at that time, did not verify with a fingerstick. Thinks this was not accurate. Denies contractions, vaginal bleeding or LOF. Active movement. Objective: BP 126/74 (BP Location: Left arm, Patient Position: Sitting) Pulse 103 Ht 160 cm (5' 3) Wt 199 lb (90.3 kg) LMP 05/28/2024 (Approximate) BMI 35.25 kg/m General: NAD Abd: gravid Remainder of physical exam not performed due to telemedicine visit Ultrasound: 01/13/2025 IUP at 32w 6d for evaluation of growth assessment. Breech presentation. The interval growth has been appropriate. The EFW plots at the 17%. The amniotic fluid volume measured 14.7 cm The biophysical profile is 8/8 with normal breathing motion, body motion, tone and amniotic fluid volume. Assessment/Plan: Penny Nieto is a 34 y.o. at 32w6d with a complicated by the following: Pre-existing type 2 diabetes mellitus during in third trimester 01/13/25: Elevated overnight and fasting values. Excursions are appropriate with meals. Will increase basal. Discussed that lantus may need to be split to BID dosing if much higher doses are necessary. Plan - Current regimen: 01/13/2025 Glargine 40u AM > 48u AM Humalog - Physician adjusting insulin dosage: MFM INSULIN RECOMMENDATIONS: She was not well-controlled on her pre- Ozempic and metformin (stopped approx 4-6 months prior to ), so recommend continuation of insulin until re-establishing care with food mixer assembler or PCP If : Glargine 12u qAM [...] complications or poorly controlled) Chronic hypertension affecting Normotensive today. No si/sx of preeclampsia. Precautions [...] earlier delivery for uncontrolled hypertension or preeclampsia. Supervision of high risk in third trimester Continue co-management and plan for delivery with primary OB Thank you for your consultation. Please don't hesitate to contact me with any questions. We will continue to follow along with Ms. Penny Nieto , and will plan to see her back in 4 weeks for a MFM visit and growth/BPP ultrasound. Maria Luisa Hector MD Maternal Medicine 01/13/2025 This was a telemedicine visit with Penny Nieto alone which took place via Real- time video connection (EvntLive, Zoom or similar).During the visit, I was located in the office in [place] and the patient was located in our remote office in [place], [place]. My visit with the patient started at 1350 and ended at 1404. Total encounter time was 20 minutes, which includes time spent today on [...] replaces an office visit. Progress Notes - Telemedicin e - 12/23/2024 - GA:29w6d 12/23/2024 - 29wd - Ava Osborn MD MFM Return Visit 12/23/2024 Penny Nieto is a 34 y.o. at 29w6d by LMP consistent with 1st trimester Ultrasound who is here for a return OB visit. Her is complicated by T2DM, cHTN, and Rh negative. Subjective: She reports no ctx/LOF/VB. Good FM. Bgs doing well with decreased insulin dose. Having some foot swelling at end of day but home Bps all normal with one that was 140/80. No PRESLEY/vision changes. Objective: BP 117/76 (BP Location: Left arm, Patient Position: Sitting) Pulse 85 Ht 160 cm (5' 3) Wt 198 lb 3.2 oz (89.9 kg) LMP 05/28/2024 (Approximate) BMI 35.11 kg/m General: NAD Remainder deferred / telehealth Ultrasound: IUP at 29w 6d who presents for growth assessment in setting of DM and HTN. 1. Breech presentation. 2. The interval growth has been appropriate. However, the EFW plots at the lower limit of normal at the 10%ile. The AC is at the 39%ile. 3. The amniotic fluid volume is normal. Assessment/Plan: Penny Nieto is a 34 y.o. at 29w6d with a complicated by below. Problem List Supervision of high risk in second trimester Overview [x] Co-management vs. [] Full MFM Care; [] Red Team [x] Blue Team Referring Provider: Trent Levin [phone] > Transferring to [facility] 08/30/24. ( Chandrakant Morales MD) [] [...] Anatomy ultrasound: [x] CBC/1hr gtt at 24-28wks: [] Rhogam at 28 wks (if Rh neg): A- - needs with her primary OB has an appt Saturday 3rd Trimester [] CBC/HIV/RPR/T&S: [] GBS: [] GC/CT (if indicated): [] testing: Twice weekly at 32 weeks (T2DM) - needs to schedule with primary OB, we will do BPP when she sees us Counseling [] MOD: Anticipate by 39 weeks (T2DM) [] Place of delivery: with primary OB Vaccines [] Flu Shot (Mar-Jun): [] COVID vaccine: [] Tdap (27-36wks): desires with OB at next visit [] RSV vaccine (32-36wks): [] PP HPV vaccine counseling (<=26 yo): Relevant Orders US Ob Follow Up Pre-existing type 2 diabetes mellitus during in third trimester - Primary Overview History & Counseling Diagnosed 2020 History of DKA? no Last hemoglobin A1C: 9.5% on 08/04/24 Pre- regimen: metformin, ozempic MFM counseling: completed 08/19/2024 Dexcom: sent share request on 08/19/24, added to DM , no longer using. 11/24/24: Khloe sharing is turned on Plan - Current regimen: 12/23/2024 - no changes Glargine 38u qAM Humalog - Physician adjusting insulin dosage: MFM INSULIN RECOMMENDATIONS: She was unfortunately not well-controlled on her pre- Ozempic and metformin, so I recommend continuation of insulin until re-establishing care with food mixer assembler or PCP If : Glargine 12u qAM [...] weekly testing starting at 32 weeks - to be scheduled [x] insulin plan by 32 weeks - see above [] Delivery at 39 0/7-39 6/7 (36 0/7 to 38 6/7 with vascular complications or poorly controlled) Current Assessment & Plan Well controlled on current regimen. No changes. plan made. Relevant Orders US Ob Follow Up Chronic hypertension affecting Overview Diagnosis: ~2018 Pre- medications: lisinopril S/p [...] earlier delivery for uncontrolled hypertension or preeclampsia. Current Assessment & Plan Continues to be normotensive and asymptomatic. Relevant Orders US Ob Follow Up History of LEEP (loop electrosurgical excision procedure) of cervix complicating in first trimester Overview - s/p counseling - normal CL at time of anatomy Plan Routine care Previous with congenital heart defect, currently , [...] [x] Offer echocardiogram with pediatric cardiology - WNL 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 Overview - s/p counseling Plan/Recommendations [x] Growth ultrasounds per recommendations for T2DM Thank you for involving MFM in the care of this jaleel patient. We will see her back in 3 weeks for a visit and a growth US given the EFW at the 10%ile which is the lowest limit of normal. We will continue to review her blood sugars weekly. In the meantime, she should continue her care with you. Please do not hesitate to reach out with any questions. This was a telemedicine visit which took place via Real-time video connection (EvntLive, Zoom or similar). During the visit, I was located in [place] and the patient was located in [place]. My visit with the patient started at 1045 and ended at 1058. Total encounter time was 30 minutes, which includes time spent today on pre charting, the patient encounter, and post charting. The patient has been informed that the visit may not be secure and acknowledged the information. My team explained the option of participating in a telephone or video visit to them. After being given an opportunity to ask questions about and discuss this type of visit, they consented to proceeding with the telephone/video visit and understand that this service replaces an office visit and they may be billed and/or responsible for any applicable copayments. Tiffanie Osborn MA MD Paper Finisher Division of Maternal- Medicine and Ultrasound Department of Obstetrics and Gynecology [facility] 12/25/2024 Progress Notes - Telemedicin e - 11/24/2024 [...] [x] Blue Team Referring Provider: Trent Levin [phone] > Transferring to [facility] 08/30/24. ( Chandrakant Morales MD) [] [...] will obtain login) Glargine Glargine 48u qAM Czbjaca50/22/22 - Physician adjusting insulin dosage: MFM [x] [...] questions. Sincerely, Amber Cook MD Maternal Medicine [facility] This was a telemedicine visit with Penny Nieto which took place via Real-time video connection (EvntLive, Zoom or similar). During the visit, I was located in the office and the patient was located in the CDL office in the [facility]. The patient visit started at [...] on remote diabetes management. Sherry Luna MD Paper Finisher Division of Maternal- Medicine and Ultrasound Department of Obstetrics and Gynecology [facility] Progress Notes - Documentati on - 10/19/2024 [...] is recommended. Chronic hypertension affecting Overview Diagnosis: ~2018 Pre- medications: lisinopril S/p [...] questions. Sincerely, Amber Cook MD Maternal Medicine [facility] This was a telemedicine visit with Penny Nieto which took place via Real-time video connection (InTouch, Zoom or similar). During the visit, I was located in the office and the patient was located in the CDL office in the [facility]. The patient visit started at [...] on - 10/06/2024 - GA:18w5d 10/06/2024 - 18w5d - Sherry Luna MD Images from the [...] on remote diabetes management. Sherry Luna MD Paper Finisher Division of Maternal- Medicine and Ultrasound Department of Obstetrics and Gynecology [facility] Progress Notes - Documentati on - 09/29/2024 - GA:17w5d 09/29/2024 - 17w5d - Sherry Luna MD Images from the [...] on remote diabetes management. Sherry Luna MD Paper Finisher Division of Maternal- Medicine and Ultrasound Department of Obstetrics and Gynecology [facility] Progress Notes - Documentati on - 09/28/2024 - GA:17w4d 09/28/2024 - 17w - Cierra Rivera RN Images from the original note were not included. Progress Notes - Documentati on - 09/21/2024 - GA:16w4d 09/21/2024 - 16 - Maria Luisa Hector MD Images from [...] Maria Luisa Hector MD Maternal Medicine 09/22/2024 PRESSER PRESSER Progress Notes - Telemedicin e - 09/16/2024 [...] or poorly controlled) Chronic hypertension affecting Diagnosis: ~2018 Pre- medications: lisinopril S/p counseling [...] took place via Real- time video connection (Begel Systemsuch, Zoom or similar).During the visit, I was located in the office and the patient was located in her home in the [facility]. My visit with the patient started at [...] that this service replaces an office visit. PRESSER Progress Notes - Documentati on - 09/08/2024 [...] on remote diabetes management. Sherry Luna MD Paper Finisher Division of Maternal- Medicine and Ultrasound Department of Obstetrics and Gynecology [facility] PRESSER Progress Notes - Telemedicin e - 08/19/2024 - GA:11w6d 08/19/2024 - wd - Gracie Fierro MD Maternal Medicine Consult Note This was a telemedicine visit with Penny and her mother which took place via Real-time video connection (EvntLive, Dinnr or similar).During the visit, I was located in the office and the patient was located in our [place] office in the [facility]. My visit with the patient started at 1:37 and ended at 1:57. Total encounter time was 30 minutes, which includes time spent today on pre charting, the patient encounter, and post charting. The patient: has been informed that the visit may not be secure and acknowledged the information. The option of participating in a telephone or video visit during the COVID-19 [facility] emergency was explained to them. After being [...] heart surgery. Doing well now. Transferring to [facility] 08/30/24. OB History Para Term AB [...] Not At Risk (10/01/2022) Received from 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 [] Full M Care; [] Red Team [x] Blue Team Referring Provider: Trent Levin [id number] > Transferring to [facility] 08/30/24. [] or Medicare Insurance [x] [...] for MFM telehealth visit Gracie Fierro MD Paper Finisher Division of Maternal- Medicine PRESSER Progress Notes - Abstract - 08/11/2024 - GA:10w5d 08/11/2024 - 10w5d - Kermit Sweeney RMA Ob records in media PRESSER Last Filed Vital Signs Vital Sign Reading [...] 01/13/2025 12:53 PM CDT Plan of Treatment Health Maintenance Due Date Last Done Comments Cervical Cancer Screening 1990 Depression Screening 1990 Hepatitis C Screening 1990 Varicella Vaccines (1 of 2 - 13+ 2-dose series) 11/12/2004 Regular Well Visit/Exam 18-64 11/12/2009 Covid-19 Vaccine ( season) 2024 10/06/2020, 09/07/2020 Influenza Vaccine (#1) 2025 , 05/14/2023, 04/21/2021, Additional history exists DTaP/Tdap/Td Vaccine (9 - Td or Tdap) 06/06/2033 06/06/2023, 07/28/2015, 01/31/2006, Additional history exists Hepatitis B Screening Completed 03/05/1997 , 11/03/1996, 09/29/1996 HPV Vaccines Completed 09/14/2020, 04/22, 03/01/2020 Pneumococcal vaccine <65 Aged Out No longer [...] amniotic fluid volume. us Tani Hayward MD [facility] OB US PROCEDURES Final R esult * [...] volume is normal. us Tani Hayward MD [facility] OB US PROCEDURES Final R esult * [...] AM CDT Narrative 11/04/2024 8:39 AM CDT [facility] Heart Station Echo Report [facility] [address] Patient Name: PENNY NIETO Study Type: Echo Patient : 1990 Exam Date: 11/04/2024 Age: 33Y Exam Time: 7:45:00 AM Referring MD: GOODMAN ALAMO Height: 63in Weight: 191.7lb BSA: 1.9 m2 Sex: FEMALE BP: 124/80 Swiss Type Screw Machine Operator: Gareth Hernandez. Stat.: Outpatient Account:[id number] Indications for Study:MATERNAL DIABETES 775.1 Procedures: Echocardiogram [...] Normal. Septum: PFO. Defect sz. Moderate Shunt: Tlmkp-sm-Khso Ventricles: D-looped LV size: Normal. LV function:Normal. [...] Procedure Note Pam Pérez MD - 11/04/2024 [facility] Heart Station Echo Report One [address] [address] Patient Name: PENNY NIETO Study Type: Echo Patient : 1990 Exam Date: 11/04/2024 Age: 33Y Exam Time: 7:45:00 AM Referring MD: GOODMAN ALAMO Height: 63in Weight: 191.7lb BSA: 1.9 m2 Sex: FEMALE BP: 124/80 Swiss Type Screw Machine Operator: Gareth Hernandez. Stat.: Outpatient Account:[id number] Indications for Study:MATERNAL DIABETES 775.1 Procedures: Echocardiogram [...] Normal. Septum: PFO. Defect sz. Moderate Shunt: Ptvie-in-Naob Ventricles: D-looped LV size: Normal. LV function:Normal. [...] Signed 11/04/2024 08:39 AM Pam Pérez MD Amber Cook MD CV ECHO PROCEDURES Final Res ult from Last 3 Months Insurance [employer] Care Teams Ironer Hand Relationship Specialty Start Date End Date No, Physician PCP - General 08/04/24
--- OUTSIDE RECORDS SUMMARY | 2025-01-29 05:21 | XMS_ITS | Encounter Summary ---
Author Organization [facility] Address [address] [place] [address] Care Team Providers Care Top Printing Press Operator Name Role Phone Randall Salgado MD Unavailable [phone] Ranjan Gerard MD Primary Care Provider + Encounter Details Date Type Department Care Team (Late st Contact Info) Description 11/25/2023 Globe[facility] [address] [place] [address] [employer], [facility] Provider Proxy Request Social History Tobacco Use [...] on file documented as of this encounter Functional Status * Over the past 2 weeks, how often have you been bothered by any of the following problems? Question Answer Date of Assessment Author Status Little interest or pleasure in doing things Not at all 11/25/2023 8:57 AM CDT Lola Suarez P, Nurse Real Estate Salesperson II Active Feeling down, depressed, or hopeless Not at all 11/25/2023 8:57 AM Sneha Richards, Nurse Real Estate Salesperson II Active Patient Health Questionnaire-2 Score 0 11/25/2023 8:57 AM Izzy Richards, Nurse Real Estate Salesperson II Active documented as of this encounter Plan of Treatment Not on file documented as of this encounter Visit Diagnoses Not on filedocumented in this encounter Care Teams Top Printing Press Operator Relationship Specialty Start Date End Date Ranjan Gerard MD [address] [facility] [address] [place] [address] PCP - General FAMILY PRACTICE 11/19/23 Randall Salgado MD [address] [place] [address] Reporter CARDIOVASCULAR DISEASE 10/24/18 documented as of this encounter
--- OUTSIDE RECORDS SUMMARY | 2025-01-29 05:21 | XMS_ITS | Encounter Summary ---
Author Organization [facility] Address [address] [place] [address] Care Team Providers Care Ship Rigger Name Role Phone Jane Villatoro MD Primary Care Provider [phone] Randall Salgado MD Unavailable [phone] Ranjan Gerard MD Primary Care Provider + Encounter Details Date Type Department Care Team (Late st Contact Info) Description 10/30/2021 Abstract [facility] [id number] Abstract, Doc [facility] Social History [...] Result * MAGNESIUM (OUTSIDE LAB) (05/09/2021) Pathologist [facility] MAGNESIUM 1.9 1.6 - 2.3 Comment:RESULT NOTE [...] on filedocumented in this encounter Care Teams Ship Rigger Relationship Specialty Start Date End Date Jane Villatoro MD [address] [place] [address] PCP - General FAMILY PRACTICE 10/24/18 11/18/23 Ranjan Gerard MD [address] [place] [address] PCP - General FAMILY PRACTICE 11/19/23 Randall Salgado MD [address] [place] [address] [place] Asset Protection Manager CARDIOVASCULAR DISEASE 10/24/18 documented as of this encounter
--- OUTSIDE RECORDS SUMMARY | 2025-01-29 05:21 | XMS_ITS | Clinical Summary ---
Author Organization [facility] Address [address] [place] [address] Care Team Providers Care Bread Room Hand Name Role Phone Randall Salgado MD Unavailable [phone] Ranjan Gerard MD Primary Care Provider + Allergies No known active allergies Medications No known medications Active Problems Problem Noted Date Diagnosed Date Pre-syncope 07/09/2021 Bartholin's duct cyst 02/11/2020 Overview (09/21/2021): Added automatically from request for surgery [id number] C6 radiculopathy 12/11/2018 Essential hypertension 12/11/2018 Immunizations Immunization Administration Dates Next Due DTaP-IPV (Kinrix) 05/26/1993 [...] Comments Blood Pressure 130/70 07/08/2024 10:45 AM TURN LASTER Pulse 87 07/08/2024 10:45 AM TURN [facility]STER Temperature 36.7 C (98.1 F) 07/08/2024 10:45 AM TURN LASTER Respiratory Rate 20 07/08/2024 10:45 AM TURN LASTER Oxygen Saturation 100% 07/08/2024 10:45 AM TURN LASTER Inhaled Oxygen Concentration - - Weight 77.7 kg (171 lb 6.4 oz) 07/08/2024 10:45 AM TURN LASTER Height 162.6 cm (5' 4) 07/08/2024 10:45 AM TURN LASTER Body Mass Index 29.42 07/08/2024 10:45 AM TURN LASTER Plan of Treatment Health Maintenance Due Date Last Done Comments Cervical Cancer Screening Pap Smear (Age 30 to 64) Every 3 Years 1991 Kidney Health Evaluation 1991 Annual Physical 11/12/1994 Diabetes: Retinopathy Eye Exam 11/12/2009 Hepatitis C 11/12/2009 Pneumococcal Vaccine: Pediatrics (0 to 5 Years) and At-Risk Patients (6 to 49 Years) (1 of 2 - PCV) 11/12/2010 Cervical Cancer Screening Pap with HPV Testing (Age 30 to 64) Every 5 Years 11/12/2021 Cervical Cancer Screening with HPV 11/12/2021 COVID-19 Vaccine (3 - 2024-25 season) 2024 10/06/2020, 09/07/2020 PHQ-2 (Physician [place]) 07/22/2024 07/08/2024 Lipid Panel 11/24/2024 11/25/2023 Hemoglobin A1C 01/06/2025 07/08/2024, 05/0 12/2023, 05/09/2021 DTaP, Tdap and Td Vaccines (8 - [...] complication, without long-term current use of insulin ([facility]) LIPID PANEL Routine 11/25/2023 9:23 AM CDT Type 2 diabetes mellitus without complication, without long-term current use of insulin from Last 3 Months or Most Recently Relevant to Health Maintenance Results * A1C (BACK OFFICE) (07/08/2024) HGB A1C 8.8 % FLO CHÁVEZ ([id number])VALENTE 07/08/2024 us Ranjan Gerard MD LABORATORY Final Re sult JosephMONI CHÁVEZ ([id number]), VALENT[place] [address] [place] [address], * LIPID PANEL (11/25/2023 9:23 AM CDT) CHOLESTEROL 150 <200 MG/DL 11/25/2023 10:[address] [facility] TRIGLYCERIDES 53 <150 MG/DL 11/25/2023 10:[address] [facility] HDL 52 >40.0 MG/DL 11/25/2023 10:[address] [facility] LDL (CALCULATED) 87 <100 MG/DL 11/25/19 10:[address] [facility] NON HDL CHOLESTEROL 98 <130 MG/DL 11/24 10:[address] [facility] Comment: NOTE: WHEN THE TRIGLYCERIDES ARE >200 mg/dL, NON HDL C IS A SECONDARY TARGET OF THERAPY, WITH A GOAL 30 mg/dL HIGHER THAN THE IDENTIFIED LDL C GOAL. CHOL/HDL RATIO 2.9 0.0 - 4.5 11/25/2023 10:03 AM [facility] VLDL CALCULATION 11 5 - 55 MG/DL 11/25/2023 10:[address] [facility] LIPID INTERPRETATION 11/25/2023 10:03 AM [facility] Comment: [facility] CONCENSUS REPORT RECOMMENDATIONS: ADULT CHILD LOW RISK: CHOLESTEROL <200 <170 TRIGLYCERIDE <150 --- HDL >=60 --- LDL <100 <110 BORDERLINE: CHOLESTEROL 200-239 170-199 TRIGLYCERIDE 150-199 --- HDL 40-59 --- LDL 100-159 110-129 HIGH RISK: CHOLESTEROL >=240 >=200 TRIGLYCERIDE >=200 --- HDL <40 --- LDL >=160 >=130 11/25/2023 9:23 AM CDT us Ranjan Gerard MD LABORATORY Final Re sult [facility] [address] [place], [place] [address] [phone] from Last 3 Months or Most Recently Relevant to Health Maintenance Insurance [facility] Care Teams Bread Room Hand Relationship Specialty Start Date End Date Ranjan Gerard MD [address] [facility] [address] [place] [phone] PCP - General FAMILY PRACTICE 11/19/23 Randall Salgado MD [address] [place] [address] [place] CARDIOVASCULAR DISEASE 10/24/18
--- OUTSIDE RECORDS SUMMARY | 2025-01-29 05:21 | XMS_ITS | Data Portability ---
Author Organization [facility] Address [address] [place] [address] Care Team Providers Care Siebel Administrator Name Role Phone ABRIL ROWLEY Primary Care Provider Assessment No assessment recorded. Plan of Treatment Reminders Order Date Submit Date Provider Last Modified By Organization Details Last Modified Time Details Appointments U/S OB GROWTH 2024 10:30A M ULTRASOUND Not available Not available Not available NST 2024 11:00A M NST SCHEDULE Not available Not available Not available OB ROUTINE 2024 11:30A Loretta ADAMS MD Not available Not available Not available U/S OB BPP 2024 09:00A M ULTRASOUND Not available Not available Not available NST 2024 09:30A M NST SCHEDULE Not available Not available Not available OB ROUTINE 2024 10:00A Loretta ADAMS MD Not available Not available Not available SURG MISC 2024 01:00P Loretta ADAMS MD Not available Not available Not available U/S OB BPP 2024 09:00A M ULTRASOUND Not available Not available Not available NST 2024 09:30A M NST SCHEDULE Not available Not available Not available OB ROUTINE 2024 10:00A Loretta ADAMS MD Not available Not available Not available INDUCTI ON 2024 05:00A Loretta ADAMS MD Not available Not available Not available U/S OB BPP 2024 10:00A M ULTRASOUND Not available Not available Not available NST 2024 10:30A M NST SCHEDULE Not available Not available Not available OB ROUTINE 2024 11:00A M HALLEY ADAMS MD Not available Not available Not available U/S OB BPP 2024 09:00A M ULTRASOUND Not available Not available Not available NST 2024 09:30A M NST SCHEDULE Not available Not available Not available OB ROUTINE 2024 10:00A M HALLEY ADAMS MD Not available Not available Not available Lab None recorde d. Referral None recorde d. Procedures None recorde d. Surgeries externa l cephali c version (SURG) 2024 025 [email or web address] [facility], [address], [place], [address], 01/28/2025 09:32:34 Imaging non-str ess test 2024 025 [email or web address] [address], [address], [place], [address], 01/27/2025 12:03:19 US, obstetr ic, biophys ical profile + non-str ess test 2024 025 [email or web address] [address], [address], [place], [address], 01/28/2025 10:48:35 non-str ess test 2024 025 [email or web address] [address], [address], [place], [address], 01/21/2025 08:02:42 US, obstetr ic, biophys ical profile + non-str ess test 2024 025 [email or web address] [address], [address], [place], [address], 01/22/2025 22:15:55 Medication Orders None recorde d. Patient TargetsNo targets recorded. Patient InstructionsNo instructions recorded. Reason for Referral None Reported. Results Created Date Observation Date Name Description Value Unit Range Abnormal Flag Note LastModifiedBy Organization Detail LastModifiedTime 01/09/20 25 01/08/2025 imagi ng/di agnos tic resul t No observ ation record ed. [address] [address], [place], [address], 01/11/2025 13:32:11 01/14/20 25 01/13/2025 imagi ng/di agnos tic resul t No observ ation record ed. [facility] [address], [place], [address], 01/15/2025 18:34:01 01/17/20 25 01/16/2025 imagi ng/di agnos tic resul t No observ ation record ed. [address] [address], [place], [address], 01/18/2025 14:44:43 01/21/20 25 01/20/2025 US, obste tric, bioph ysica l profi le + non-s tress test No observ ation record ed. [email or web address] [facility] [address], [place], [address], 01/20/2025 17:47:55 01/21/20 25 01/20/2025 US, obste tric, follo w-up No observ ation record ed. [address], [place], [address], 01/25/2025 09:24:50 01/21/20 25 01/20/2025 non-s tress test No observ ation record ed. [facility] [address], [place], [address], 01/20/2025 23:49:17 01/24/20 25 01/23/2025 imagi ng/di agnos tic resul t No observ ation record ed. [address] [address], [place], [address], 01/24/2025 20:56:00 01/28/20 25 01/27/2025 US, obste tric, bioph ysica l profi le + non-s tress test No observ ation record ed. [email or web address] [facility] [address], [place], [address], 01/27/2025 13:20:35 01/28/20 25 01/27/2025 US, obste tric, bioph ysica l profi le + non-s tress test No observ ation record ed. [email or web address] [address], [place], [address], 01/28/2025 14:05:57 01/28/20 25 01/27/2025 non-s tress test No observ ation record ed. [email or web address] [facility] [address], [place], [address], 01/27/2025 11:54:54 Result Notes None recorded. Problems Name Problem SNOMED Code Status Onset Date Resolution Date Notes Provider Name and Address Organization Details Recorded Time 66465586 Active 2024 Becky pedraza [facility] 12:12:01 Benign hypertensi on 86329700 Active ASA 81mg , no meds, CBC/CMP/PC ratio baseline ordered; needs EKG Suzanne pedraza [facility] 22:58:52 Type 2 diabetes mellitus 97481183 Active - managed by [facility] - A1c 9.5% (07/2024) - Current regimen: lantus 38u qAM, humalog - Last dilated eye exam: 08/2024 - Last EKG: pending - Evidence of end organ damage: n/a - echo: per [facility] wnl Scheduled [facility] 10/14 Level II US 745 and consult 1145 [facility] recommenda tions pp insulin if breastfeed ing Lantus 12u qAM, humalog 4u TID if not breastfeed ing Lantus 14u qAM,humalo g 4u TID continue pp until establish care with Endocrinol ogist or [facility] 23:02:20 Family history of Congenital heart disease 753206795 Active daughter with heart defect surgically repaired; plan for echo wnl Suzanne Pacheco [facility] 5 18:19:51 RhD negative 287791540 Active received Rhogam 07/2024 Rhogam on 12/26/24 Suzanne Pacheco [facility] 5 09:33:06 Problem Notes None recorded. Procedures Surgical History Date Name Laterality Status Provider Name and Address Organization Details Recorded Time 06/12/2023 Date of Last Pap Smear completed Becky Ferreira [facility] 09/09/2024 12:26:20 07/22/2021 LEEP completed Becky Ferreira [facility] 09/09/2024 13:16:08 Imaging Results None recorded. [...] (U-100) Insulin 100 unit/mL subcutaneou s INJECT SUBCUTANE OUSLY 15-20 MINUTES BEFORE EACH MEAL, BREAKFAST (14), LUNCH (22), AND DINNER (22) active Not Available Not Available No t Available pen needle, diabetic 32 gauge x 5/32 USE FIVE TIMES DAILY DIRECTED 12/30 completed Not Available Not Available Not Available Dexcom G6 Sensor device USE WITH SINGING MESSENGER AND TRANSMITT ER TO MONITOR GLUCOSE VALUES CONTINUOU SLY. PLEASE CHANGE THE SENSOR EVERY 10 DAYS 11/04 completed Not Available Not Available Not Available Dexcom G6 Transmitter device USE DIRECTED 11/04 completed Not Available Not Available Not Available insulin glargine-yf gn (U-100) 100 unit/mL (3 mL) subcutaneou s pen INJECT 48 UNITS SUBCUTANE OUSLY IN THE MORNING active Not Available Not [...] Available Not Available Vitals Date Recorded Body height Body mass index (BMI) Body weight Body height Systolic And Diastolic Provider Name and Address Organization Details Last Updated DateTime 01/20/2025 162.56 cm 34.4 kg/m2 02052.91 g 162.56 cm 111/74 mm[Hg] [facility] 15:59:01 Date Recorded Body height Body mass index (BMI) Body weight Body height Systolic And Diastolic Provider Name and Address Organization Details Last Updated DateTime 01/27/2025 162.56 cm 34.1 kg/m2 77672.73 g 162.56 cm 111/77 mm[Hg] [facility] 11:44:40 Social History Question Answer Notes LastModified by Organizat ion Details LastModified Time Tobacco Smoking Status Never [facility]oker [facility] 09/09/2024 13:15:45 Do You Have An Advance Directive? No [email or web address] Information n ot available 09/09/2024 Are You Blind Or Do You Have Difficulty Seeing? No [email or web address] Information n ot available 09/09/2024 What Is Your Level Of Caffeine Consumption? Occasional Information not available 09/09/2024 How Much Tobacco Do You Chew? None [email or web address] Information not available 09/09/2024 In The 14 Days Before Symptom Onset, Have You Had Close Contact With A Laboratory-confirm ed COVID-19 While That Case Was Ill? No [email or web address] Information n ot available 09/09/2024 In The 14 Days Before Symptom Onset, Have You Had Close Contact With A Person Who Is Under Investigation For COVID-19 While That Person Was Ill? No [email or web address] Information not available 09/09/2024 Have You Been To An Area Known To Be High Risk For COVID-19? No [email or web address] Information not available 09/09/2024 Are You Deaf Or Do You Have Serious Difficulty Hearing? No [email or web address] Information not available 09/09/2024 What Type Of Diet Are You Following? REGULAR [email or web address] Information n ot available 09/09/2024 What Is The Highest Grade Or Level Of School You Have Completed Or The Highest Degree You Have Received? [id number] [email or web address] Information not available 09/09/2024 Are There Any Guns Present In Your Home? No [email or web address] Information not available 09/09/2024 Do You Use Protection During Sex? No [email or web address] Information not available 09/09/2024 Do You Use Your Seat Belt Or Car Seat Routinely? Yes [email or web address] Information not available 09/09/2024 Are You Sexually Active? Yes [email or web address] Information not available 09/09/2024 Do You Have Smoke And Carbon Monoxide Detectors In Your Home? Yes [email or web address] Information not available 09/09/2024 How Much Tobacco Do You Smoke? No Information not available 09/09/2024 Do You Use Sunscreen Routinely? No [email or web address] Information not available 12/19/2024 Have You Used IV Drugs? No [email or web address] Information not available 09/09/2024 Do You Have Difficulty Walking Or Climbing Stairs? No [email or web address] Information not available 09/09/2024 Sex: Unknown Functional Status Question Answer Note LastModified by Organizat ion Details LastModified Time Do you use any illicit or recreational drugs? No Information not available 09/09/2024 What is your level of alcohol consumption? None [email or web address] Information not available 09/09/2024 Are you currently employed? Yes [email or web address] Information not available 09/09/2024 Are you able to walk? YESWOREST [email or web address] Information not available 09/09/2024 Are you able to care for yourself? 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 No [email or web address] Information not available 09/09/2024 What is your exercise level? Occasional [email or web address] Information not available 09/09/2024 Mental Status Question Answer Note LastModified by Organization D etails LastModified Time Do you feel stressed (tense, restless, nervous, or anxious, or unable to sleep at night)? [id number] [email or web address] Information not available 09/09/2024 Family History Relationship Description Onset Age of this Age Resolved Age Notes LastModified by Organization Details LastModified Time Sister Diabetes mellitus [email or web address] Not available 09/19 11:51:12 Paternal Grandfather Diabetes mellitus [email or web address] Not available 2024 12:26:20 Father Diabetes mellitus [email or web address] Not available 2024 12:26:20 Medical History Condition [...] SNOMED-CT Code Diagnosis ICD10 Code Diagnosis Note [id number] Markos Caballero MD [facility] [address] [address] 09/09/2024 12:21:05 09/09/2024 13:54:11 Uncertain viability of 137248698 O36.80X0 Z3A.14 [id number] HALLEY ADAMS MD [facility] [address] [address] 09/09/2024 12:21:30 09/10/2024 09:09:01 Chronic hypertension complicating AND/OR reason for care during 23843897 O16.9 - previously on lisinopril , not taking in - BP well controlled currently- baseline labs ordered- continue bASA for preeclamps ia ppx Pre-existi ng type 2 diabetes mellitus in 088734383 O24.119 - referred to [facility] by previous OBGYN- current regimen: lantus 32u qAM, humalog 10 with meals- A1c 9.5% in July- discussed risks of T2DM in - will send new referral to [facility] to transition primary OBGYN care to [facility] RhD negative 351684551 Z 01.83 - Rhogam received 07/2024 for bleeding Family his tory of Congenital heart disease 595253711 Z82.79 - daughter born with heart defect, required surgery- discussed risk of cardiac defects with T2DM and family hx of cardiac defects; will order echo in 2nd trimester test positive 359182192 Z32.01 1. Exam today within normal limits.2. Ultrasound today confirms GA and viability. EDC . GC/Clamydi a testing done: will f/u as indicated. 4. ACOG guidelines and plan of care for reviewed with patient. All questions answered.5 . Return to office in 4 weeks for new OB visit6. New OB labs and NIPT completed at [facility] in [place], [place]; records requested [id number] MD Mary SOTO [address] [address] 10/07/2024 11:50:52 10/08/2024 04:44:51 Chronic hypertension complicating AND/OR reason for care during 69449546 O16.9 - previously on lisinopril , not taking in - BP well controlled currently- baseline labs ordered- continue bASA for preeclamps ia ppx Pre-existi ng type 2 diabetes mellitus in 817930520 O24.119 - referred to [facility] by previous OBGYN- A1c 9.5% in July; new A1c pending- discussed risks of T2DM in - managed by [facility] Family his tory of Congenital heart disease 885663635 Z82.79 - daughter born with heart defect, required surgery- discussed risk of cardiac defects with T2DM and family hx of cardiac defects; will order echo in 2nd trimester thru [facility] Gestation period, 19 weeks 86650956 Z3A.19 [id number] Markos Caballero MD [facility] [address],[place] [address] 11/04/2024 12:05:42 11/04/2024 12:48:28 Routine care 588471190 Z34.82 [id number] Markos Caballero MD [facility] [address],[place] [address] 12/19/2024 09:41:26 12/19/2024 10:50:36 screening 698526799 Z36.89 O36.0130 care status 24 5102523 Z34.83 [id number] HALLEY ADAMS MD [facility] [address],[place] [address] 12/30/2024 09:53:30 12/30/2024 10:29:17 Type 2 diabetes mellitus 83316206 E11.9 - follows with [facility]- good glycemic control- continue q3 week growth US- will start twice weekly testing at 32 weeks RhD negative 720770637 O 26.899 Z67.91 - Rhogam received 07/2024 for bleeding, received 3rd tri dose in 12/2024 Family his tory of Congenital heart disease 903343612 Z82.79 - daughter born with heart defect, required surgery- discussed risk of cardiac defects with T2DM and family hx of cardiac defects- echo WNL Chronic hy pertension complicating AND/OR reason for care during 04869432 O10.919 - previously on lisinopril , not taking in - BP well controlled currently- baseline labs wnl- continue bASA for preeclamps ia ppx Gestation period, 30 weeks 52764696 Z3A.30 - continue PNV [id number] Markos Caballero MD [facility] [address],[place] [address] 01/20/2025 14:42:34 01/20/2025 15:27:50 Pre-existing type 2 diabetes mellitus in 886804532 O24.113 O16.3 Z3A.33 [id number] HALLEY ADAMS MD [facility] [address],[place] [address] 01/20/2025 14:44:08 01/20/2025 16:40:47 Pre-existing type 2 diabetes mellitus in 567417148 O24.113 - referred to [facility] by previous OBGYN- A1c 9.5% in July; new A1c pending- discussed risks of T2DM in - managed by [facility] [id number] HALLEY ADAMS MD [facility] [address],[place] [address] 01/20/2025 14:44:21 01/20/2025 17:03:07 Benign hypertension 43383857 I10 Type 2 ema betes mellitus 71021355 E11.9 - follows with [facility]- good glycemic control- continue q3 week growth US- will start twice weekly testing at 32 weeks Gestation period, 33 weeks 68768976 Z3A.33 [id number] HALLEY ADAMS MD [facility] [address],[place] [address] 01/27/2025 10:21:49 01/27/2025 12:03:19 Pre-existing type 2 diabetes mellitus in 079562527 O24.113 - referred to [facility] by previous OBGYN- A1c 9.5% in July; new A1c pending- discussed risks of T2DM in - managed by [facility] [id number] MD Mary SOTO [address],[place] [address] 01/27/2025 10:22:10 01/27/2025 10:52:50 and type 2 diabetes mellitus 140167820 O24.113 O16.3 Z3A.34 [id number] MD Mary SOTO [address],[place] [address] 01/27/2025 10:22:37 01/28/2025 08:59:28 Benign hypertension 80427489 I10 - well controlled off meds- asymptomat ic- continue to monitor closely- plan for MIL at 38 weeks Type 2 ema betes mellitus 65730721 E11.9 - follows with MFM- good glycemic control- continue q3 week growth US- will start twice weekly testing at 32 weeks Breech presentation 6096 002 O32.1XX0 - bryanna breech- ECV vs RCS discussed with patient who desires to proceed with ECV- r/b of each method including recommenda tion for epidural discussed and patient voices understand ing Gestation period, 34 weeks 81968439 Z3A.34 Health Concerns Section Related Observation LastModified by Organization Detai ls LastModified Time None Recorded Concern Status LastModified by Organization Details LastModified Time None Recorded Advance Directives Directive N: Payers Insurance Date Sequence Insurance Name Policy Number Policy Erazo Covered Member ID Erazo Member ID Guarantor Name 01/28/2025 1 [place] [id number] Penny Larkin [id number] Penny Larkin 11/04/2024 2 [place] Penny Larkin [id number] Penny Larkin 01/28/2025 2 [place] Penny Larkin [id number] Penny Larkin OBGyn Episode Ob Episode Information Episode Created Date Number of Fetuses Patient Bloodtype Patient rh Status Prepregnancy Weight lbs Domestic Partner Domestic Partner Phone Father Name Silver Designer Status 10/08/19 25 1 A Negative OPEN Fetus Data First Name Last Name Admitted to NICU Weight (g) Sex Living Outcome Pediatric Complications Fetus ID Race Codes Race Delivery Type [id number] Problems Problem Notes Induction 02/23 0500 Problem Name Start Date End Date Resolution Snomed Code Not e Family history of Congenital heart disease 053619462 daughter with h eart defect surgically repaired; plan for echo wnl Type 2 diabetes mellitus 84765850 - managed by [facility]- A1c 9.5% (07/2024)- Current regimen: lantus 38u qAM, humalog - Last dilated eye exam: 08/2024- Last EKG: pending- Evidence of end organ damage: n/a- echo: per MFM wnlScheduled [facility] 10/14 Level II US 745 and consult 1145MFM recommendations pp insulin if Lantus 12u qAM, humalog 4u TID if not Lantus 14u qAM,humalog 4u TID continue pp until establish care with Inside Sales Specialist or pcp RhD negative [id number] receive d Rhogam 07/2024Rhogam on 12/26/24 Benign hypertension 89723593 ASA 81mg , no meds, CBC/CMP/PC ratio baseline ordered; needs [...] Date Ultra Sound Latest Days Gestation 0 [email or web address] 10/08/2024 03/04/20 25 0 Pre-herbie Flowsheet Flowsheet Date 10/07/2024 Hayward Score Blood Edema Fundus Height Fundus Units Glucose Ketones Leukocytes Nitrite Labor Signs Protein Cervic Dilation Cervic Effacement Cervic Station Type Weight in lbs Pre/Post Dialysis Refused Weight 183.657041670715 BP Diastolic BP Location Tested BP Systolic BP Type 74 L arm 128 sitting Fetus Heart Rate Present A 150 Fetus Movement A Yes Comments Patient presents to [facility] care. complicated by hx of T2DM. Has already been established with [facility], monitoring glucose. A1c 9.5% in Jul. Repeat [...] Type Weight in lbs Pre/Post Dialysis Refused 191.586786299692 BP Diastolic BP Location Tested BP Systolic [...] Weight in lbs Pre/Post Dialysis Refused Weight 197.472976799649 BP Diastolic BP Location Tested BP Systolic BP Type 80 L arm 128 sitting Fetus Heart Rate Present A 144 Fetus Movement A Yes Comments no complaints, no problems, routine care, no contractions, no vaginal bleeding, no loss of fluid, no cramping to get RhoGAM and 3rd trimester labs, noted diabetes testing Flowsheet Date 12/30/2024 Hayward Score Blood Edema Fundus Height Fundus Units Glucose Ketones Leukocytes Nitrite Labor Signs Protein Cervic Dilation Cervic Effacement Cervic Station Type Weight in lbs Pre/Post Dialysis Refused 197.914715039937 BP Diastolic BP Location Tested BP Systolic BP Type 82 L arm 129 sitting Fetus Heart Rate Present A 145 Fetus Movement A Yes Comments Doign well, good movem ent. Glucose well controlled, following with [facility]. Increased lantus by 2 units yesterday. Will start twice weekly testing at 32 weeks per [facility]. Received Rhogam, normal Hgb. Discussed tdap vaccine. RTC 2 weeks. Flowsheet Date 01/20/2025 Hayward Score Blood Edema Fundus Height Fundus Units Glucose Ketones Leukocytes Nitrite Labor Signs Protein Cervic Dilation Cervic Effacement Cervic Station Type Weight in lbs Pre/Post Dialysis Refused BP Diastolic BP Location Tested BP Systolic BP Type Fetus Heart Rate Present Fetus Movement Comments Flowsheet Date 01/20/2025 Hayward Score Blood Edema Fundus Height Fundus Units Glucose Ketones Leukocytes Nitrite Labor Signs Protein Cervic Dilation Cervic Effacement Cervic Station Type Weight in lbs Pre/Post Dialysis Refused BP Diastolic BP Location Tested BP Systolic BP Type Fetus Heart Rate Present Fetus Movement Comments Flowsheet Date 01/20/2025 Hayward Score Blood Edema Fundus Height Fundus Units Glucose Ketones Leukocytes Nitrite Labor Signs Protein Cervic Dilation Cervic Effacement Cervic Station neg none Type Weight in lbs Pre/Post Dialysis Refused Weight 200.932041246580 BP Diastolic BP Location Tested BP Systolic BP Type 74 L arm 111 sitting Fetus Heart Rate Present A 130 Fetus Movement A Yes Comments Good movement. No cram ping or bleeding. Received tdap. Starting twice weekly testing (Sat/Sat). BPP 10/10. Breech presentation, briefly discussed ECV vs PCS. Plan for delivery between 38-39 weeks. Preadmission scheduled. RTC 1 week. Flowsheet Date 01/27/2025 Hayward Score Blood Edema Fundus Height Fundus Units Glucose Ketones Leukocytes Nitrite Labor Signs Protein Cervic Dilation Cervic Effacement Cervic Station Type Weight in lbs Pre/Post Dialysis Refused BP Diastolic BP Location Tested BP Systolic BP Type Fetus Heart Rate Present Fetus Movement Comments Flowsheet Date 01/27/2025 Hayward Score Blood Edema Fundus Height Fundus Units Glucose Ketones Leukocytes Nitrite Labor Signs Protein Cervic Dilation Cervic Effacement Cervic Station Type Weight in lbs Pre/Post Dialysis Refused BP Diastolic BP Location Tested BP Systolic BP Type Fetus Heart Rate Present Fetus Movement Comments Flowsheet Date 01/27/2025 Hayward Score Blood Edema Fundus Height Fundus Units Glucose Ketones Leukocytes Nitrite Labor Signs Protein Cervic Dilation Cervic Effacement Cervic Station neg none Type Weight in lbs Pre/Post Dialysis Refused Weight 198.319642800084 BP Diastolic BP Location Tested BP Systolic BP Type 77 L arm 111 sitting Fetus Heart Rate Present Fetus Movement A Yes Comments Doing well, good movem ent. No bleeding or LOF. Had some elevated BPs at home, all normal in the office. Patient instructed to go for evaluation if BP becomes elevated again. BPP 8/8, bryanna breech. Discussd ECV vs RCS including risks and benefits of each. Patient desires ECV; will schedule at 37 weeks. Will plan for induction on 02/23 if successful. RTC 1 week. Menstrual History Last Menstrual Date Menses Monthly On Bcp Conception Prior Menses Frequency Hcg Plus Date Menarche Onset Age Delivery Information Delivery Date Delivery Type Labor Anesthesia Weeks Gestation Incision Type Labor Labor Length Hrs Delivered By Post Complications Tubal Sterilization Discharge Date Comments Discharge Information Feeding Method Contraceptive Method Maternal HG B and HCT Levels
[2025-01-29 06:32] VITALS: BP 137/84; PULSE 81
--- NOTE | 2025-01-29 06:37 | PC.NURSE ---
0440- Patient arrives to OB unit with complaints of leaking of fluid since 0300. Patient states she has some leaking and noticed it was clear. Patient denies vaginal bleeding as well as contractions. Patient has positive movement. Patient is a with and EDC of 03/04/25. Patient has type 2 diabetes and is on insulin, as well as chronic hypertension and does not take medication for that. 4814- RN phoned Dr. Caballero to notify him of patient arrival as well as patient complaints. RN notified MD of FHT tracing with accelerations and moderate variability. RN also notified MD of no contractions and that patient denies feeling any contractions. RN notified MD of patient medical complications as well with this . RN notified MD of ROM plus being negative and cervical exam. RN also notified MD of patient blood pressures of 149/90, 119/87, and 137/84, as well as temperature and pulse. MD gave orders to d/c patient. 0218- RN at bedside discussing plan of care with patient, patient agrees with plan of care. RN went over verbal d/c instructions with patient, patient verbalizes understanding and has no questions at this time.
[2025-01-29 06:38] LABS: OBXCEM ROM Plus Negative (Negative)
== END 2025-01-29 05:23 | disposition home or self-care (01) ==
PROVIDERS: PCP Family Medicine; Visit Provider Obstetrics & Gynecology
DX: O42.90 Premature rupture of membranes, unspecified as to length of time between rupture and onset of labor, unspecified weeks of gestation (principal); Z3A.00 Weeks of gestation of pregnancy not specified
CPT/HCPCS: 59025; 84112

== ENCOUNTER 2025-02-13 08:58 | Outpatient (RCR) | payer BC, MEDICAID, SELFPAY ==
[2025-01-16 11:05] VITALS: BP 119/76; PULSE 78
[2025-01-23 09:30] VITALS: BP 125/83; PULSE 102
[2025-02-06 08:53] VITALS: BP 136/81; PULSE 96
[2025-02-10 09:40] VITALS: BP 140/79; PULSE 97
--- NOTE | ~2025-02-13 | US_ITS ---
EXAM: US OB BPP wo non-stress - 02/10/2025 9:42 CDT History: 34 years old Female with type II diabetic Comparison: None available. Technique Real time transabdominal obstetric sonographic imaging was performed. Findings A single live intrauterine gestation is identified. Lie: longitudinal Presentation: breech heart rate: 157 beats per minute Placental position: posterior VIKAS: 11.99 cm, which is between the 7.7 cm-5 th and 24.9 cm-95 th percentiles. Biophysical profile: breathing movement: 2 Gross body movement: 2 tone: 2 Qualitative AFV: 2 Total BPP score: 8 of 8. Impression Total biophysical profile score is 8 out of 8. Reviewed, dictated and finalized at location A. Impression Total biophysical profile score is 8 out of 8.
[2025-02-13 08:58] VITALS: BP 127/83; PULSE 84
== END 2025-02-27 09:51 | disposition home or self-care (01) ==
LOC: ANHOBOP 08:58
PROVIDERS: PCP Family Medicine; Visit Provider Obstetrics & Gynecology
DX: O24.419 Gestational diabetes mellitus in pregnancy, unspecified control (principal); Z3A.33 33 weeks gestation of pregnancy; Z3A.34 34 weeks gestation of pregnancy; Z3A.37 37 weeks gestation of pregnancy; Z3A.38 38 weeks gestation of pregnancy
CPT/HCPCS: 59025; 76819

== ENCOUNTER 2025-02-17 11:12 | Outpatient (CLI) | payer BC, MEDICAID, SELFPAY ==
--- OUTSIDE RECORDS SUMMARY | 2025-02-17 11:42 | XMS_ITS | Encounter Summary ---
Author Organization [facility] Address [address] [place] [id number] Care Team Providers Care Equipment Engineer Name Role Phone Randall Salgado MD Unavailable [phone] Ranjan Gerard MD Primary Care Provider + Reason for Visit * Reason Comments Ultrasound (SCAN) Encounter Details Date Type Department Care Team ([facility] Contact Info) Description 02/10/2025 Scan HEALTH INFO [facility] Scanned, Doc Med Group Ultrasound (SCAN) Social History Tobacco Use Types Packs/Day Years Used Date Smoking Tobacco: Never Passive Smoke Exposure: Never Smokeless Tobacco: Never Alcohol Use Standard [...] Procedure Name Priority Date/Time Associated Diagnosis Comments ULTRASOUND GENERIC (SCAN ORDER) 02/10/2025 documented in this encounter Results * ULTRASOUND GENERIC (SCAN ORDER) (02/10/2025) Anatomical Region Laterality Modality Other 02/10/2025 us Doc Med Group Scanned SCANNING Final Resu lt documented in this encounter Visit Diagnoses Not on filedocumented in this encounter Care Teams Equipment Engineer Relationship Specialty Start Date End Date Ranjan Gerard MD [id number] [facility] [address] [place] [id number] PCP - General FAMILY PRACTICE 11/19/23 Randall Salgado MD [address] [place] [address] [employer] Development Analyst CARDIOVASCULAR DISEASE 10/24/18 documented as of this encounter
--- OUTSIDE RECORDS SUMMARY | 2025-02-17 11:42 | XMS_ITS | Clinical Summary ---
Author Organization [facility] Address [address] [place] [address] Care Team Providers Care Stem Threshing Machine Operator Name Role Phone No, Physician Primary Care Provider [phone] Allergies No known active allergies Medications aspirin 81 mg chewable tablet Take 1 tablet (81 mg total) by mouth daily Active vit 31-iuoq-jfcqz-d presley 27mg iron- 800 mcg-250 mg capsule Take by mouth Active blood-glucose sensor device Use as directed to monitor blood sugars 3 each 5 11/24/2024 Active insulin lispro (HumaLOG, ADMELOG) 100 unit/mL vial for injection Inject 16 units under the skin with breakfast, 20 units with lunch, 24 units with dinner 15 mL 3 01/05/2025 Active insulin glargine 100 unit/mL (3 mL) pen for injection Inject 48 units under the skin in the morning. 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 Doing well now. Plan: [] Specialized anatomic survey at 18-22 weeks [] Offer echocardiogram with pediatric cardiology Assessment & Plan (08/19/2024 4:24 PM STENCIL CUTTER MACHINE): History: PV stenosis in prior daughter was [...] Overview (01/13/2025): [x] Co-management vs. [] Full [facility] Care; [] Red Team [x] Blue Team Referring Provider: Trent Levin [id number] > Transferring to [facility] 08/30/24. ( Chandrakant Morales MD) [] or [...] OB Assessment & Plan (09/16/2024 9:26 AM STENCIL CUTTER MACHINE): Continue co-management of care with Dr. Morales Assessment & Plan (08/19/2024 4:23 PM STENCIL CUTTER MACHINE): [x] Co-management vs. [] Full MFM Care; [] Red Team [x] Blue Team Referring Provider: Trent Levin [id number] > Transferring to [facility] 08/30/24. [] or Medicare Insurance [x] Dating [...] metformin, ozempic MFM counseling: completed 08/19/2024 Using [employer] with clinic accounts Plan - Current regimen: [...] continuation of insulin until re-establishing care with figure clerk or PCP If : Glargine 12u qAM [...] continuation of insulin until re-establishing care with figure clerk or PCP If : Glargine 12u qAM Humalog 4u TID If not : Glargine 14u qAM Humalog 4u TID [x] Counseling performed [x] Diabetes education [x] Recommend weekly review of BG/insulin data to adjust insulin dosing [x] Glucagon prescribed by primary OB [x] Referral to ophthalmology for comprehensive eye exam - up to date [x] Baseline [facility] [place] [place] - [place]N [] A1c qTrimester [x] 1st T: 9.5% [...] made. Assessment & Plan (09/16/2024 9:24 AM STENCIL CUTTER MACHINE): 09/16/24 CGM review: Past two days with [...] controlled) Assessment & Plan (08/19/2024 4:22 PM STENCIL CUTTER MACHINE): History Diagnosed 2020 History of DKA? no [...] asymptomatic. Assessment & Plan (09/16/2024 9:25 AM STENCIL CUTTER MACHINE): Diagnosis: ~2017 Pre- medications: lisinopril S/p counseling [...] preeclampsia. Assessment & Plan (08/19/2024 4:20 PM STENCIL CUTTER MACHINE): Diagnosis: ~2017 Pre- medications: lisinopril Counseling 08/19/2024: [...] care Assessment & Plan (08/19/2024 4:21 PM STENCIL CUTTER MACHINE): Counseling 08/19/2024: While some studies have suggested [...] Type Department Care Team Description 01/26/[address] [phone] Sherry Luna MD Glycemic control meeting 01/19/[address] [phone] Ava Ellington MD glycemic control 01/13/2025 1:45 PM CDT Telemedicine [facility] Obstetrics and Gynecology [address] [place] [phone] Pre-existing type 2 diabetes mellitus during in third trimester (Primary Dx); Supervision of high risk in second trimester; Chronic hypertension affecting 01/13/2025 12:30 PM CDT Ancillary Procedure [facility] Ob[facility]etrics and Gynecology [address] [place] [phone] Pre-existing type 2 diabetes mellitus during in third trimester; Supervision of high risk in second trimester; Chronic hypertension affecting 01/12/2025 Telephone [facility]etrics and Gynecology [address] [place] [phone] Ashley Valverde CMA 01/05/[address] [phone] Sherry Luna MD Glycemic control meeting 12/29/[address] [phone] Sherry Luna MD Glycemic control meeting 12/23/2024 11:15 AM CDT Telemedicine [facility] Ob[facility]etrics and Gynecology [address] [place] [phone] Pre-existing type 2 diabetes mellitus during in third trimester (Primary Dx); Supervision of high risk in second trimester; Chronic hypertension affecting ; Previous with congenital heart defect, currently , second trimester; 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; History of LEEP (loop electrosurgical excision procedure) of cervix complicating in first trimester 12/23/2024 10:30 AM CDT Ancillary Procedure [facility] Ob[facility] Gynecology [address] [place] [phone] Chronic hypertension affecting ; Pre-existing type 2 diabetes mellitus during in second trimester; Supervision of high risk in second trimester 12/22/2024 Telephone [facility] Ob[facility]etrics [facility] Gynecology [address] [place] [phone] Ashley Valverde CMA 12/15/[address] [phone] Sherry Luna MD Glycemic control meeting 12/08/[address] [phone] Carla Govea MD 12/01/[address] [phone] Maria Luisa Hector MD 11/24/2024 11:30 AM CDT Telemedicine [facility] Ob[facility]s [facility] Gynecology [address] [place] [phone] Chronic hypertension affecting (Primary Dx); Pre-existing type 2 diabetes mellitus during in second trimester; Supervision of high risk in second trimester; Previous with congenital heart defect, currently , second trimester; 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; History of LEEP (loop electrosurgical excision procedure) of cervix complicating in first trimester 11/24/2024 10:45 AM CDT Ancillary Procedure [facility] Ob[facility]etrics and Gynecology [address] [place] [phone] Pre-existing type 2 diabetes mellitus during in second trimester; Chronic hypertension affecting ; Supervision of high risk in second trimester 11/23/2024 Telephone [facility] Ob[facility]etrics [facility] Gynecology [address] [phone] Ashley Valverde CMA from Last 3 Months Surgical History Surgery [...] on file Legal Sex Female 9:48 AM STENCIL CUTTER MACHINE Gender Identity Not on file Sexual Orientation [...] Estimated Date of Delivery 08/11/2024 - Present (02/17/2025) 03/04/2025 (set by Kermit Haywood RMA on 08/11/2024 based on Last Menstrual Period on 05/28/2024 (Approximate)) Dating Summary Based On JOE GA Diff Last Menstrual Period on 05/28/2024 (Approximate ) 03/04/2025 Working Ultrasound on 08/03/2024 03/04/2025 Same GA:9w4d Comment:CRL report scanned u nder Media, Vitals Pregravid Weight Height TWG (As of 02/17/2025) Pregrav id BMI 160 cm (5' 3) Notes Progress Notes - Telemedicin e - 01/13/2025 - GA:32w6d 01/13/2025 - 32w6d - Maria Luisa Hector MD Images from the original note were not included. MFM Return Consult Visit 01/13/[address] Morales, It was a pleasure meeting again with our mutual patient in continued consultation. Penny Larkin is a 34 y.o. at 32w6d whose [...] tone and amniotic fluid volume. Assessment/Plan: Penny Larkin is a 34 y.o. at 32w6d with [...] continuation of insulin until re-establishing care with figure clerk or PCP If : Glargine 12u qAM [...] We will continue to follow along with . Penny Lrakin , and will plan to see her back in 4 weeks for a MFM visit and growth/BPP ultrasound. Maria Luisa Hector MD Maternal Medicine 01/13/2025 This was a telemedicine visit with Penny Larkin alone which took place via Real- time video connection (Zumbox, SlickLogin or similar).During the visit, I was located in the office in [place] and the patient was located in our remote office in [place], [place]. My visit with the patient started [...] e - 12/23/2024 - GA:29w6d 12/23/2024 - - Ava Osborn MD MFM Return Visit 12/23/2024 Penny Larkin is a 34 y.o. at 29w6d by [...] BMI 35.11 kg/m General: NAD Remainder deferred 2/2 telehealth Ultrasound: IUP at 29w 6d who presents for growth assessment in setting of DM and HTN. 1. Breech presentation. 2. The interval growth has been appropriate. However, the EFW plots at the lower limit of normal at the 10%ile. The AC is at the 39%ile. 3. The amniotic fluid volume is normal. Assessment/Plan: Penny Larkin is a 34 y.o. at 29w6d with a complicated by below. Problem List Supervision of high risk in second trimester Overview [x] Co-management vs. [] Full MFM Care; [] Red Team [x] Blue Team Referring Provider: Trent Levin [id number] > Transferring to [facility] 08/30/24. ( Chandrakant Morales MD) [] or [...] continuation of insulin until re-establishing care with figure clerk or PCP If : Glargine 12u qAM [...] which took place via Real-time video connection (Zumbox, SlickLogin or similar). During the visit, I was located in [place] and the patient was located in [place]. My visit with the patient started [...] any applicable copayments. Tiffanie Osborn MA MD Lead Sql Developer Division of Maternal- Medicine and Ultrasound Department of Obstetrics and Gynecology [facility] 12/25/2024 Progress Notes - Telemedicin e - 11/24/2024 - GA:25w5d 11/24/2024 - w5d - Amber Cook MD Images from the original note were not included. MFM Return Consult Visit 11/24/2024 Dear Provider It was a pleasure meeting again with our mutual patient in continued consultation. Penny Larkin is a 34 y.o. at 25w5d by who is comanaged with Dr. Hayward. Her is complicated by chronic hypertension on no medications, history of LEEP, marginal cord insertion, T2DM, hx prior with CHD Subjective: She reports feeling well. [...] see report for full details. Assessment/Plan: Penny Larkin is a 34 y.o. at 25w5d with a complicated by the following: Problem List joe 03/04/25 Supervision of high risk in second trimester Overview [x] Co-management vs. [] Full M Care; [] Red Team [x] Blue Team Referring Provider: Trent Levin [id number] > Transferring to [facility] 08/30/24. ( Chandrakant Morales MD) [] or [...] will obtain login) Glargine Glargine 48u qAM Jnxlyit30/22/22 - Physician adjusting insulin dosage: MFM [x] [...] questions. Sincerely, Amber Cook MD Maternal Medicine [facility] This was a telemedicine visit with Penny Larkin which took place via Real-time video connection (InTouch, Zoom or similar). During the visit, I was located in the office and the patient was located in the [facility] office in the [facility]. The patient visit started at [...] fluid via a subcutaneous sensor for Penny Larkin. Overall good glycemic control with mildly elevated [...] on remote diabetes management. Sherry Luna MD Lead Sql Developer Division of Maternal- Medicine and Ultrasound Department of Obstetrics and Gynecology [facility] Progress Notes - Documentati on - 10/19/2024 - GA:20w4d 10/19/2024 - w4d - Cierra Rivera RN Images from the original note were not included. Cosigned by Ava Ellington MD at 10/20/2024 11:02 AM CDT Associated attestation - Aav Ellington MD - 10/20/2024 11:02 AM CDT Plan - Current regimen: 10/20/2024 Glargine 40 units qAM Humalog > I have analyzed and interpreted > 72 hours of ambulatory continuous glucose monitoring of interstitial fluid via a subcutaneous sensor for Penny Larkin. I have made the recommendations above for diabetes management. 10/20/2024 Progress Notes - Telemedicin e - 10/14/2024 - GA:19w6d 10/14/2024 - w6d - Amber Cook MD Images from the original note were not included. MFM Return Consult Visit 10/14/2024 Dear Provider It was a pleasure meeting again with our mutual patient in continued consultation. Penny Larkin is a 33 y.o. at 19w6d by [...] see report for full details. Assessment/Plan: Penny Larkin is a 33 y.o. at 19w6d with [...] questions. Sincerely, Amber Cook MD Maternal Medicine [facility] This was a telemedicine visit with Penny Larkin which took place via Real-time video connection (Zumbox, Zoom or similar). During the visit, I was located in the office and the patient was located in the [facility] office in the [facility]. The patient visit started at [...] fluid via a subcutaneous sensor for Penny Larkin. Overnight highs largely due to evening mealtime [...] on remote diabetes management. Sherry Luna MD Lead Sql Developer Division of Maternal- Medicine and Ultrasound Department of Obstetrics and Gynecology [facility] Progress Notes - Documentati on - 09/29/2024 - GA:17w5d 09/29/2024 - 17w5d - Sherry Luna MD Images from the original note were not included. Glycemic Control Meeting 09/29/2024 This patient was discussed at the glycemic control meeting on 09/29/2024. I have analyzed and interpreted > 72 hours of ambulatory continuous glucose monitoring of interstitial fluid via a subcutaneous sensor for Penny Larkin. Overall appropriate glycemic control with improving overnight [...] on remote diabetes management. Sherry Luna MD Lead Sql Developer Division of Maternal- Medicine and Ultrasound Department of Obstetrics and Gynecology [facility] Progress Notes - Documentati on - 09/28/2024 - GA:17w4d 09/28/2024 - w4d - Cierra Rivera RN Images from the original note were not included. Progress Notes - Documentati on - 09/21/2024 - GA:16w4d 09/21/2024 - w4d - Maria Luisa Hector MD Images from the original note were not included. Current regimen: 09/22/2024 Glargine 32u qAM > 36u qAM Humalog 10 units before meals I have analyzed and interpreted > 72 hours of ambulatory continuous glucose monitoring of interstitial fluid via a subcutaneous sensor for Penny Larkin. I have made the recommendations above for diabetes management. Maria Luisa Hector MD Maternal Medicine 09/22/2024 CIL CUTTER MACHINE CIL CUTTER MACHINE Progress Notes - Telemedicin e - 09/16/2024 - GA:15w6d 09/16/2024 - 15w6d - Maria Luisa Hector MD Images from the original note were not included. MFM Return Consult Visit 09/16/[address] Morales, It was a pleasure meeting again with our mutual patient in continued consultation. Penny Larkin is a 33 y.o. at 15w6d whose [...] not performed due to telemedicine visit Assessment/Plan: Pneny Larkin is a 33 y.o. at 15w6d with [...] continue to follow along with Ms. Penny Larkin , and will plan to see her back in 4 weeks for a MFM visit and anatomy ultrasound. Maria Luisa Hector MD Maternal Medicine 09/16/2024 This was a telemedicine visit with Penny Larkin alone which took place via Real- time video connection (Zumbox, SlickLogin or similar).During the visit, I was located in the office and the patient was located in her home in the [facility]. My visit with the patient [...] that this service replaces an office visit. CIL CUTTER MACHINE Progress Notes - Documentati on - 09/08/2024 - GA:14w5d 09/08/2024 - 14w5d - Sherry Luna MD Images from the original note were not included. Glycemic Control Meeting 09/08/2024 This patient was discussed at the glycemic control meeting on 09/08/2024. I have analyzed and interpreted > 72 hours of ambulatory continuous glucose monitoring of interstitial fluid via a subcutaneous sensor for Penny Larkin. Mildly increased baseline glycemic values over the [...] on remote diabetes management. Sherry Luna MD Lead Sql Developer Division of Maternal- Medicine and Ultrasound Department of Obstetrics and Gynecology [facility] [employer] [facility] CIL CUTTER MACHINE Progress Notes - Telemedicin e - 08/19/2024 - GA:11w6d 08/19/2024 - 11w6d - Gracie Fierro MD Maternal Medicine Consult Note This was a telemedicine visit with Penny and her mother which took place via Real-time video connection (Zumbox, SlickLogin or similar).During the visit, I was located in the office and the patient was located in our [place] office in the [facility]. My visit with the patient started [...] heart surgery. Doing well now. Transferring to [facility] 08/30/24. OB History Para Term AB Living [...] Use: Not At Risk (10/01/2022) Received from [facility] Frequency of Alcohol Consumption: Never Average Number of Drinks: Patient does not drink Frequency of Binge Drinking: Never Works as [employer] at [employer] Lives with , daughter, step daughter Smoke [...] [x] Blue Team Referring Provider: Trent Levin [id number] > Transferring to [facility] 08/30/24. [] or Medicare Insurance [x] Dating [...] with primary OB Vaccines [] Flu Shot (Mar-Dec): [] COVID vaccine: [] Tdap (27-36wks): [] [...] for MFM telehealth visit Gracie Fierro MD Lead Sql Developer Division of Maternal- Medicine CIL CUTTER MACHINE Progress Notes - Abstract - 08/11/2024 - GA:10w5d 08/11/2024 - 10w5d - Kermit Sweeney RMA Ob records in media CIL CUTTER MACHINE Last Filed Vital Signs Vital Sign Reading [...] Well Visit/Exam 18-64 11/12/2009 Covid-19 Vaccine ( - season) 2024 10/06/2020, 09/07/2020 Influenza Vaccine (#1) [...] Supervision of high risk in second trimester from Last 3 Months [...] fluid volume is normal. Tani Hayward MD [facility] OB US PROCEDURES Final R esult * [...] volume measured 12 cm Tani Hayward MD [facility] OB US PROCEDURES Final R esult from Last 3 Months Insurance CHOICE [place] P[place] Care Teams Stem Threshing Machine Operator Relationship Specialty Start Date End Date No, Physician PCP - General 08/04/24
--- OUTSIDE RECORDS SUMMARY | 2025-02-17 11:42 | XMS_ITS | Referral Summary ---
Author Organization [facility] Address [address] [place] [address] Care Team Providers Care Audio Recording Engineer Name Role Phone No, Physician Primary Care Provider [phone] Encounters Date Type Department Care Team Description 01/26/[address] [phone] Sherry Luna MD Glycemic control meeting 01/19/[address] [phone] Ava Ellington MD glycemic control 01/13/2025 1:45 PM CDT Telemedicine [facility] Obstetrics and Gynecology [address] [place] [phone] Pre-existing type 2 diabetes mellitus during in third trimester (Primary Dx); Supervision of high risk in second trimester; Chronic hypertension affecting 01/13/2025 12:30 PM CDT Ancillary Procedure [facility] Obstetrics and Gynecology [address] [place] [phone] Pre-existing type 2 diabetes mellitus during in third trimester; Supervision of high risk in second trimester; Chronic hypertension affecting 01/12/2025 Telephone [facility] Obstetrics and Gynecology [address] [place] [phone] Ashley Valverde CMA 01/05/[address] [phone] Sherry Luna MD Glycemic control meeting 12/29/[address] [phone] Sherry Luna MD Glycemic control meeting 12/23/2024 11:15 AM CDT Telemedicine [facility] Obstetrics and Gynecology [address] [phone] Pre-existing type 2 diabetes mellitus during in third trimester (Primary Dx); Supervision of high risk in second trimester; Chronic hypertension affecting ; Previous with congenital heart defect, currently , second trimester; 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; History of LEEP (loop electrosurgical excision procedure) of cervix complicating in first trimester 12/23/2024 10:30 AM CDT Ancillary Procedure [facility] Obstetrics and Gynecology [address] [place] [phone] Chronic hypertension affecting ; Pre-existing type 2 diabetes mellitus during in second trimester; Supervision of high risk in second trimester 12/22/2024 Telephone [facility] Obstetrics and Gynecology [address] [phone] Ashley Valverde CMA 12/15/[address] [phone] Sherry Luna MD Glycemic control meeting 12/08/[address] [phone] Carla Govea MD 12/01/[address] [phone] Maria Luisa Hector MD 11/24/2024 11:30 AM CDT Telemedicine [facility] Obstetrics and Gynecology [address] [phone] Chronic hypertension affecting (Primary Dx); Pre-existing type 2 diabetes mellitus during in second trimester; Supervision of high risk in second trimester; Previous with congenital heart defect, currently , second trimester; 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; History of LEEP (loop electrosurgical excision procedure) of cervix complicating in first trimester 11/24/2024 10:45 AM CDT Ancillary Procedure [facility] Obstetrics and Gynecology 900 [facility] [address] [place] [address] Pre-existing type 2 diabetes mellitus during in second trimester; Chronic hypertension affecting ; Supervision of high risk in second trimester 11/23/2024 Telephone [facility] Obstetrics and Gynecology 900 [facility] [address] [place] [address] Ashley Valverde CMA from Last 3 Months Allergies No known active allergies Medications aspirin 81 mg chewable tablet Take 1 tablet (81 mg total) by mouth daily Active vit [id number]-[id number]-d presley 27mg iron- 800 mcg-250 mg capsule [...] [x] Offer echocardiogram with pediatric cardiology - [facility] Assessment & Plan (09/16/2024 9:25 AM INSOLE AND OUTSOLE PREPARER): History: 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 Doing well now. Plan: [] Specialized anatomic survey at 18-22 weeks [] Offer echocardiogram with pediatric cardiology Assessment & Plan (08/19/2024 4:24 PM INSOLE AND OUTSOLE PREPARER): History: PV stenosis in prior daughter was [...] cardiology Supervision of high risk in third formerly [facility] mike 08/11/2024 Overview (01/13/2025): [x] Co-management vs. [] Full [facility] Care; [] Red Team [x] Blue Team Referring Provider: Trent Levin [phone] > Transferring to [facility] 08/30/24. ( Chandrakant Morales MD) [] [...] OB Assessment & Plan (09/16/2024 9:26 AM INSOLE AND OUTSOLE PREPARER): Continue co-management of care with Dr. Morales Assessment & Plan (08/19/2024 4:23 PM INSOLE AND OUTSOLE PREPARER): [x] Co-management vs. [] Full [facility] Care; [] Red Team [x] Blue Team Referring Provider: Trent Levin [phone] > Transferring to [facility] 08/30/24. [] or Medicare Insurance [x] [...] metformin, ozempic MFM counseling: completed 08/19/2024 Using [employer] with clinic accounts Plan - Current regimen: [...] continuation of insulin until re-establishing care with roller mechanic or PCP If : Glargine 12u qAM [...] continuation of insulin until re-establishing care with roller mechanic or PCP If : Glargine 12u qAM Humalog 4u TID If not : Glargine 14u qAM Humalog 4u TID [x] Counseling performed [x] Diabetes education [x] Recommend weekly review of BG/insulin data to adjust insulin dosing [x] Glucagon prescribed by primary OB [x] Referral to ophthalmology for comprehensive eye exam - up to date [x] Baseline [facility], UPC - WNL [] A1c qTrimester [x] [...] made. Assessment & Plan (09/16/2024 9:24 AM INSOLE AND OUTSOLE PREPARER): 09/16/24 CGM review: Past two days with [...] controlled) Assessment & Plan (08/19/2024 4:22 PM INSOLE AND OUTSOLE PREPARER): History Diagnosed 2020 History of DKA? no [...] asymptomatic. Assessment & Plan (09/16/2024 9:25 AM INSOLE AND OUTSOLE PREPARER): Diagnosis: ~2017 Pre- medications: lisinopril S/p counseling [...] preeclampsia. Assessment & Plan (08/19/2024 4:20 PM INSOLE AND OUTSOLE PREPARER): Diagnosis: ~2017 Pre- medications: lisinopril Counseling 08/19/2024: [...] care Assessment & Plan (08/19/2024 4:21 PM INSOLE AND OUTSOLE PREPARER): Counseling 08/19/2024: While some studies have suggested [...] on file Legal Sex Female 9:48 AM INSOLE AND OUTSOLE PREPARER Gender Identity Not on file Sexual Orientation [...] motion, body motion,tone and amniotic fluid volume. Tani Hayward MD IMG OB US PROCEDURES [...] fluid volume is normal. Tani Hayward MD [facility] [place] [place] OB US PROCEDURES Final R esult * [...] volume measured 12 cm Tani Hayward MD [facility] [place] [place] OB US PROCEDURES Final R esult from Last 3 Months Insurance [employer] [place] Care Teams Audio Recording Engineer Relationship Specialty Start Date End Date No, Physician PCP - General 08/04/24
--- OUTSIDE RECORDS SUMMARY | 2025-02-17 11:42 | XMS_ITS | Encounter Summary ---
Author Organization [facility] Address [address] [place] [address] Care Team Providers Care Upsetter Helper Name Role Phone Jane Villatoro MD Primary Care Provider [phone] Randall Salgado MD Unavailable [phone] Ranjan Gerard MD Primary Care Provider + Encounter Details Date Type Department Care Team (Late st Contact Info) Description 10/30/2021 Abstract [facility] [phone] Abstract, Doc [facility] Social History [...] on filedocumented in this encounter Care Teams Upsetter Helper Relationship Specialty Start Date End Date Jane Villatoro MD [address] [place] [address] PCP - General FAMILY PRACTICE 10/24/18 11/18/23 Ranjan Gerard MD [address] [place] [address] PCP - General FAMILY PRACTICE 11/19/23 Randall Salgado MD [address] [place] [address] [place] Shellfish Weigher CARDIOVASCULAR DISEASE 10/24/18 documented as of this encounter
--- OUTSIDE RECORDS SUMMARY | 2025-02-17 11:42 | XMS_ITS | Encounter Summary ---
Author Organization [facility] Address [address] [place] [address] Care Team Providers Care Armature Inspector Name Role Phone Randall Salgado MD Unavailable [phone] Ranjan Gerard MD Primary Care Provider + Encounter Details Date Type Department Care Team (Late st Contact Info) Description 11/25/2023 [employer] [facility] Home Inventory S[pecialists [facility] [address] [place] [address] [employer], [facility] Provider Proxy Request Social History [...] 8:57 AM CDT Lola Suarez P, Nurse Cracking And Fanning Machine Operator II Active Feeling down, depressed, or hopeless Not at all 11/25/2023 8:57 AM Sneha Richards, Nurse Cracking And Fanning Machine Operator II Active Patient Health Questionnaire-2 Score 0 11/25/2023 8:57 AM Izzy Richards, Nurse Cracking And Fanning Machine Operator II Active documented as of this encounter Plan of Treatment Not on file documented as of this encounter Visit Diagnoses Not on filedocumented in this encounter Care Teams Armature Inspector Relationship Specialty Start Date End Date Ranjan Gerard MD [address] [facility] [address] [place] [address] PCP - General FAMILY PRACTICE 11/19/23 Randall Salgado MD [address] [place] [address] [place] Superintendent Overhead Distribution CARDIOVASCULAR DISEASE 10/24/18 documented as of this encounter
--- OUTSIDE RECORDS SUMMARY | 2025-02-17 11:42 | XMS_ITS | Clinical Summary ---
Author Organization [facility] Address [address] [place] [address] Care Team Providers Care Bonsai Tender Name Role Phone Randall Salgado MD Unavailable [phone] Ranjan Gerard MD Primary Care Provider + Allergies No known active allergies Medications No known medications Active Problems Problem Noted Date Diagnosed Date Pre-syncope 07/09/2021 Bartholin's duct cyst 02/11/2020 Overview (09/21/2021): Added automatically from request for surgery [id number] C6 radiculopathy 12/11/2018 Essential hypertension 12/11/2018 Encounters Date Type Department Care Team Description 02/10/2025 Scan [facility] INFO SRVCS Scanned, Doc Med [facility] Ultrasound (SCAN) from Last 3 Months Immunizations Immunization Administration Dates Next Due DTaP-IPV [...] Comments Blood Pressure 130/70 07/08/2024 10:45 AM FUEL SYSTEM MAINTENANCE SUPERVISOR Pulse 87 07/08/2024 10:45 AM FUEL SYSTEM MAINTENANCE SUPERVISOR Temperature 36.7 C (98.1 F) 07/08/2024 10:45 AM FUEL SYSTEM MAINTENANCE SUPERVISOR Respiratory Rate 20 07/08/2024 10:45 AM FUEL SYSTEM MAINTENANCE SUPERVISOR Oxygen Saturation 100% 07/08/2024 10:45 AM FUEL SYSTEM MAINTENANCE SUPERVISOR Inhaled Oxygen Concentration - - Weight 77.7 kg (171 lb 6.4 oz) 07/08/2024 10:45 AM FUEL SYSTEM MAINTENANCE SUPERVISOR Height 162.6 cm (5' 4) 07/08/2024 10:45 AM FUEL SYSTEM MAINTENANCE SUPERVISOR Body Mass Index 29.42 07/08/2024 10:45 AM FUEL SYSTEM MAINTENANCE SUPERVISOR Plan of Treatment Health Maintenance Due [...] COVID-19 Vaccine ( season) 2024 10/06/2020, 09/07/2020 PHQ-2 (Physician [place]) 07/22/2024 07/08/2024 Lipid Panel 11/24/2024 11/25/2023 Hemoglobin [...] Diagnosis Comments ULTRASOUND GENERIC (SCAN ORDER) 02/10/2025 HEMOGLOBIN, GLYCOSYLATED Routine 07/08/2024 Type 2 diabetes mellitus without complication, without long-term current use of insulin ([facility]) LIPID PANEL Routine 11/25/2023 9:23 AM CDT Type 2 diabetes mellitus without complication, without long-term current use of insulin from Last 3 Months or Most Recently Relevant to Health Maintenance Results * ULTRASOUND GENERIC (SCAN ORDER) (02/10/2025) Anatomical Region Laterality Modality Other 02/10/2025 us Doc Med Group Scanned SCANNING Final Resu lt * A1C (BACK OFFICE) (07/08/2024) HGB A1C 8.8 % [facility] ([id number]), [place] 07/08/2024 Ranjan Gerard MD LABORATORY Final Re sult F[facility] [address] ([id number]), [place] [address] [place] [id number], * LIPID PANEL (11/25/2023 9:23 AM CDT) CHOLESTEROL 150 <200 MG/DL 11/25/2023 10:03 AM CDT [facility] TRIGLYCERIDES 53 <150 MG/DL 11/25/2023 10:03 AM [facility] HDL 52 >40.0 MG/DL 11/25/2023 10:03 AM [facility] LDL (CALCULATED) 87 <100 MG/DL 11/25/19 10:03 AM [facility] NON HDL CHOLESTEROL 98 <130 MG/DL 11/24 10:03 AM [facility] Comment: NOTE: WHEN THE TRIGLYCERIDES ARE >200 mg/dL, NON HDL C IS A SECONDARY TARGET OF THERAPY, WITH A GOAL 30 mg/dL HIGHER THAN THE IDENTIFIED LDL C GOAL. CHOL/HDL RATIO 2.9 0.0 - 4.5 11/25/2023 10:03 AM T [facility] VLDL CALCULATION 11 5 - 55 MG/DL 11/25/2023 10:03 AM [facility] LIPID INTERPRETATION 11/25/2023 10:03 AM [facility] Comment: NIH CONCENSUS REPORT RECOMMENDATIONS: ADULT CHILD LOW RISK: CHOLESTEROL <200 <170 TRIGLYCERIDE <150 --- HDL >=60 --- LDL <100 <110 BORDERLINE: CHOLESTEROL 200-239 170-199 TRIGLYCERIDE 150-199 --- HDL 40-59 --- LDL 100-159 110-129 HIGH RISK: CHOLESTEROL >=240 >=200 TRIGLYCERIDE >=200 --- HDL <40 --- LDL >=160 >=130 11/25/2023 9:23 AM CDT Ranjan Gerard MD LABORATORY Final Re sult [facility] [address] [place] [address], from Last 3 Months or Most Recently Relevant to Health Maintenance Insurance [facility] Care Teams Bonsai Tender Relationship Specialty Start Date End Date Ranjan Gerard MD [address] [facility] [address] [place] [phone] PCP - General FAMILY PRACTICE 11/19/23 Randall Salgado MD [address] [place] [address] [place] Quantity Surveyor CARDIOVASCULAR DISEASE 10/24/18
[2025-02-17 14:50] LABS: Hematocrit 37.0 % (37.0-47.0); Hemoglobin 12.4 g/dL (12.0-15.0); Mean Corpuscular HGB Conc 33.5 g/dl (32-36); Mean Corpuscular Hemoglobin 30.8 pg (26-34); Mean Corpuscular Volume 92.0 fl (80-100); Platelet Count Result 329 k/mm3 (150-375); Red Blood Count 4.02 M/mm3 (4.2-5.4); White Blood Count 11.8 K/mm3 (4.5-10.0)
[2025-02-17 17:08] LABS: Syphilis IgG/IgM Antibody Non-Reactive (Nonreactive)
== END 2025-02-17 11:13 | disposition home or self-care (01) ==
PROVIDERS: PCP Family Medicine; Visit Provider Obstetrics & Gynecology
DX: Z01.818 Encounter for other preprocedural examination (principal)
CPT/HCPCS: 36415; 85027; 86593; 86850; 86880; 86900; 86901; 86902

== ENCOUNTER 2025-02-18 10:05 | Inpatient (IN) | payer BC, MEDICAID, SELFPAY ==
[2025-02-18] VITALS (66 sets, daily range): BP systolic 92–142; BP diastolic 45–97; PULSE 61–294; RESP 14–18; TEMP 36.9–37.5; O2SAT 97–100; BMI 35.8
--- OUTSIDE RECORDS SUMMARY | 2025-02-18 10:23 | XMS_ITS | Encounter Summary ---
Author Organization [facility] Address [address] [place] [address] Care Team Providers Care Manual Control Auger Press Operator Name Role Phone Jane Villatoro MD Primary Care Provider [phone] Randall Salgado MD Unavailable [phone] Ranjan Gerard MD Primary Care Provider + Encounter Details Date Type Department Care Team (Late st Contact Info) Description 10/30/2021 Abstract [facility] [address] Abstract, Doc [facility] Social History [...] on filedocumented in this encounter Care Teams Manual Control Auger Press Operator Relationship Specialty Start Date End Date Jane Villatoro MD [address] [place] [address] PCP - General FAMILY PRACTICE 10/24/18 11/18/23 Ranjan Gerard MD [address] [address] PCP - General FAMILY PRACTICE 11/19/23 Randall Salgado MD [address] [place] [address] [place] Lead Tank Mechanic CARDIOVASCULAR DISEASE 10/24/18 documented as of this encounter
--- OUTSIDE RECORDS SUMMARY | 2025-02-18 10:23 | XMS_ITS | Encounter Summary ---
Author Organization [facility] Address [address] [place] [address] Care Team Providers Care Insurance Claims Processor Name Role Phone Randall Salgado MD Unavailable [phone] Ranjan Gerard MD Primary Care Provider + Encounter Details Date Type Department Care Team (Late st Contact Info) Description 11/25/2023 [employer] [facility] [employer] [facility] [address] [place] [address] [employer], [facility] Provider Proxy Request Social History [...] 8:57 AM CDT Lola Suarez P, Nurse Wastewater Treatment Engineer II Active Feeling down, depressed, or hopeless Not at all 11/25/2023 8:57 AM Sneha Richards, Nurse Wastewater Treatment Engineer II Active Patient Health Questionnaire-2 Score 0 11/25/2023 8:57 AM Izzy Richards, Nurse Wastewater Treatment Engineer II Active documented as of this encounter Plan of Treatment Not on file documented as of this encounter Visit Diagnoses Not on filedocumented in this encounter Care Teams Insurance Claims Processor Relationship Specialty Start Date End Date Ranjan Gerard MD [address] [facility] [address] [place] [address] PCP - General FAMILY PRACTICE 11/19/23 Randall Salgado MD [address] [place] [address] [place] [facility] Radiology Technologist CARDIOVASCULAR DISEASE 10/24/18 documented as of this encounter
--- OUTSIDE RECORDS SUMMARY | 2025-02-18 10:23 | XMS_ITS | Clinical Summary ---
Author Organization [facility] Address [address] [place] [address] Care Team Providers Care Industrial Equipment Mechanic Name Role Phone Randall Salgado MD Unavailable [phone] Ranjan Gerard MD Primary Care Provider + Allergies No known active allergies Medications No known medications Active Problems Problem Noted Date Diagnosed Date Pre-syncope 07/09/2021 Bartholin's duct cyst 02/11/2020 Overview (09/21/2021): Added automatically from request for surgery [id number] [id number] radiculopathy 12/11/2018 Essential hypertension 12/11/2018 Encounters [...] Comments Blood Pressure 130/70 07/08/2024 10:45 AM DONOR RELATIONS MANAGER Pulse 87 07/08/2024 10:45 AM DONOR RELATIONS MANAGER Temperature 36.7 C (98.1 F) 07/08/2024 10:45 AM DONOR RELATIONS MANAGER Respiratory Rate 20 07/08/2024 10:45 AM DONOR RELATIONS MANAGER Oxygen Saturation 100% 07/08/2024 10:45 AM DONOR RELATIONS MANAGER Inhaled Oxygen Concentration - - Weight 77.7 kg (171 lb 6.4 oz) 07/08/2024 10:45 AM DONOR RELATIONS MANAGER Height 162.6 cm (5' 4) 07/08/2024 10:45 AM DONOR RELATIONS MANAGER Body Mass Index 29.42 07/08/2024 10:45 AM DONOR RELATIONS MANAGER Plan of Treatment Health Maintenance Due Date [...] ( season) 2024 10/06/2020, 09/07/2020 PHQ-2 (Physician [place]) 07/22/2024 07/08/2024 Lipid Panel 11/24/2024 11/25/2023 Hemoglobin [...] complication, without long-term current use of insulin ([facility]) LIPID PANEL Routine 11/25/2023 9:23 AM [...] [address] ([id number]), [place] [address] [place] [id number], * LIPID PANEL (11/25/2023 9:23 AM CDT) CHOLESTEROL 150 <200 MG/DL 11/25/2023 10:03 AM CDT [facility] TRIGLYCERIDES 53 <150 MG/DL 11/25/2023 10:03 AM [facility] HDL 52 >40.0 MG/DL 11/25/2023 10:03 AM [facility] LDL (CALCULATED) 87 <100 MG/DL 11/25/19 10:03 AM [facility] NON HDL CHOLESTEROL 98 <130 MG/DL 11/24 10:03 AM [facility] Comment: NOTE: WHEN THE TRIGLYCERIDES ARE >200 mg/dL, NON HDL C IS A SECONDARY TARGET OF THERAPY, WITH A GOAL 30 mg/dL HIGHER THAN THE IDENTIFIED LDL C GOAL. CHOL/HDL RATIO 2.9 0.0 - 4.5 11/25/2023 10:03 AM T [facility] VLDL CALCULATION 11 5 - 55 MG/DL 11/25/2023 10:03 AM [facility] LIPID INTERPRETATION 11/25/2023 10:03 AM [facility] Comment: NIH CONCENSUS REPORT RECOMMENDATIONS: ADULT CHILD LOW RISK: CHOLESTEROL <200 <170 TRIGLYCERIDE <150 --- HDL >=60 --- LDL <100 <110 BORDERLINE: CHOLESTEROL 200-239 170-199 TRIGLYCERIDE 150-199 --- HDL 40-59 --- LDL 100-159 110-129 HIGH RISK: CHOLESTEROL >=240 >=200 TRIGLYCERIDE >=200 --- HDL <40 --- LDL >=160 >=130 11/25/2023 9:23 AM CDT Ranjan Gerard MD LABORATORY Final Re sult [facility] [address] [place] [address], from Last 3 Months or Most Recently Relevant to Health Maintenance Insurance [facility] Care Teams Industrial Equipment Mechanic Relationship Specialty Start Date End Date Ranjan Gerard MD [address] [facility] [address] [place] [phone] PCP - General FAMILY PRACTICE 11/19/23 Randall Salgado MD [address] [place] [address] [place] Sweatband Drummer CARDIOVASCULAR DISEASE 10/24/18
--- OUTSIDE RECORDS SUMMARY | 2025-02-18 10:23 | XMS_ITS | Encounter Summary ---
Author Organization [facility] Address [address] [place] [address] Care Team Providers Care Sinker Winder Name Role Phone Randall Salgado MD Unavailable [phone] Ranjan Gerard MD Primary Care Provider + Reason for Visit * Reason Comments Ultrasound (SCAN) Encounter Details Date Type Department Care Team ([facility] Contact Info) Description 02/10/2025 Scan HEALTH INFO [...] on filedocumented in this encounter Care Teams Sinker Winder Relationship Specialty Start Date End Date Ranjan Gerard MD [address] [facility] [address] [place] [phone] PCP - General FAMILY PRACTICE 11/19/23 Randall Salgado MD [address] [place] [address] [place] In Service Education Teacher CARDIOVASCULAR DISEASE 10/24/18 documented as of this encounter
--- OUTSIDE RECORDS SUMMARY | 2025-02-18 10:23 | XMS_ITS | Clinical Summary ---
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 Doing well now. Plan: [] Specialized anatomic survey at 18-22 weeks [] Offer echocardiogram with pediatric cardiology Assessment & Plan (08/19/2024 4:24 PM CASH MANAGEMENT COORDINATOR): History: PV stenosis in prior daughter was [...] Overview (01/13/2025): [x] Co-management vs. [] Full [facility] Care; [] Red Team [x] Blue Team Referring Provider: Trent Levin [phone] > Transferring to [facility] [place] 08/30/24. ( Chandrakant Morales MD) [] or [...] OB Assessment & Plan (09/16/2024 9:26 AM CASH MANAGEMENT COORDINATOR): Continue co-management of care with Dr. Morales Assessment & Plan (08/19/2024 4:23 PM CASH MANAGEMENT COORDINATOR): [x] Co-management vs. [] Full MFM Care; [] Red Team [x] Blue Team Referring Provider: Trent Levin [phone] > Transferring to [facility] [place] 08/30/24. [] or Medicare Insurance [x] Dating [...] metformin, ozempic MFM counseling: completed 08/19/2024 Using [employer] with clinic accounts Plan - Current regimen: [...] continuation of insulin until re-establishing care with unpaid intern or PCP If : Glargine 12u qAM [...] continuation of insulin until re-establishing care with unpaid intern or PCP If : Glargine 12u qAM Humalog 4u TID If not : Glargine 14u qAM Humalog 4u TID [x] Counseling performed [x] Diabetes education [x] Recommend weekly review of BG/insulin data to adjust insulin dosing [x] Glucagon prescribed by primary OB [x] Referral to ophthalmology for comprehensive eye exam - up to date [x] Baseline [facility] [place] [] A1c qTrimester [x] 1st [...] made. Assessment & Plan (09/16/2024 9:24 AM CASH MANAGEMENT COORDINATOR): 09/16/24 CGM review: Past two days with [...] controlled) Assessment & Plan (08/19/2024 4:22 PM CASH MANAGEMENT COORDINATOR): History Diagnosed 2020 History of DKA? no [...] asymptomatic. Assessment & Plan (09/16/2024 9:25 AM CASH MANAGEMENT COORDINATOR): Diagnosis: ~2017 Pre- medications: lisinopril S/p counseling [...] preeclampsia. Assessment & Plan (08/19/2024 4:20 PM CASH MANAGEMENT COORDINATOR): Diagnosis: ~2017 Pre- medications: lisinopril Counseling 08/19/2024: [...] care Assessment & Plan (08/19/2024 4:21 PM CASH MANAGEMENT COORDINATOR): Counseling 08/19/2024: While some studies have suggested [...] Type Department Care Team Description 01/26/[address] [phone] Sherry Luna MD Glycemic control meeting 01/19/[address] [phone] Ava Ellington MD glycemic control 01/13/2025 1:45 PM CDT Telemedicine [facility] Obstetrics and Gynecology [address] [place] [phone] Pre-existing type 2 diabetes mellitus during in third trimester (Primary Dx); Supervision of high risk in second trimester; Chronic hypertension affecting 01/13/2025 12:30 PM CDT Ancillary Procedure [facility] Obstetrics and Gynecology [address] [place] [phone] Pre-existing type 2 diabetes mellitus during in third trimester; Supervision of high risk in second trimester; Chronic hypertension affecting 01/12/2025 Telephone [facility] Obstetrics and Gynecology [address] [place] [phone] Ashley Valverde CMA 01/05/[address] [phone] Sherry Luna MD Glycemic control meeting 12/29/[address] [phone] Sherry Luna MD Glycemic control meeting 12/23/2024 11:15 AM CDT Telemedicine [facility] Obstetrics and Gynecology [address] [place] [phone] Pre-existing type 2 diabetes mellitus during in third trimester (Primary Dx); Supervision of high risk in second trimester; Chronic hypertension affecting ; Previous with congenital heart defect, currently , second trimester; 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; History of LEEP (loop electrosurgical excision procedure) of cervix complicating in first trimester 12/23/2024 10:30 AM CDT Ancillary Procedure [facility] Obstetrics and Gynecology [address] [place] [phone] Chronic hypertension affecting ; Pre-existing type 2 diabetes mellitus during in second trimester; Supervision of high risk in second trimester 12/22/2024 Telephone [facility] Obstetrics and Gynecology [address] [place] [phone] Ashley Valverde CMA 12/15/[address] [phone] Sherry Luna MD Glycemic control meeting 12/08/[address] [phone] Carla Govea MD 12/01/[address] [phone] Maria Luisa Hector MD 11/24/2024 11:30 AM CDT Telemedicine [facility] Obstetrics and Gynecology [address] [place] [phone] Chronic hypertension affecting (Primary Dx); Pre-existing type 2 diabetes mellitus during in second trimester; Supervision of high risk in second trimester; Previous with congenital heart defect, currently , second trimester; 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; History of LEEP (loop electrosurgical excision procedure) of cervix complicating in first trimester 11/24/2024 10:45 AM CDT Ancillary Procedure [facility] Obstetrics and Gynecology [address] [place] [phone] Pre-existing type 2 diabetes mellitus during in second trimester; Chronic hypertension affecting ; Supervision of high risk in second trimester 11/23/2024 Telephone [facility] Obstetrics and Gynecology [address] [phone] Ashley Valverde CMA from Last [...] on file Legal Sex Female 9:48 AM CASH MANAGEMENT COORDINATOR Gender Identity Not on file Sexual Orientation [...] Estimated Date of Delivery 08/11/2024 - Present (02/18/2025) 03/04/2025 (set by Kermit Haywood RMA on 08/11/2024 based on Last Menstrual Period on 05/28/2024 (Approximate)) Dating Summary Based On JOE GA Diff Last Menstrual Period on 05/28/2024 (Approximate ) 03/04/2025 Working Ultrasound on 08/03/2024 03/04/2025 Same GA:9w4d Comment:CRL report scanned u nder Media, Vitals Pregravid Weight Height TWG (As of 02/18/2025) Pregrav id BMI 160 cm (5' 3) [...] continuation of insulin until re-establishing care with unpaid intern or PCP If : Glargine 12u qAM [...] continue to follow along with . Penny Larkin , and will plan to see her back in 4 weeks for a MFM visit and growth/BPP ultrasound. Maria Luisa Hector MD Maternal Medicine 01/13/2025 This was a telemedicine visit with Penny Larkin alone which took place via Real- time video connection ([employer], Maest[employer] or similar).During the visit, I was located in the office in [place] and the patient was located in our remote office in [place], [place]. My visit with the patient started [...] [x] Blue Team Referring Provider: Trent Levin [phone] > Transferring to [facility] [place] 08/30/24. ( Chandrakant Morales MD) [] or [...] continuation of insulin until re-establishing care with unpaid intern or PCP If : Glargine 12u qAM [...] which took place via Real-time video connection ([employer], [employer] or similar). During the visit, I was located in [place] and the patient was located in [place]. [...] any applicable copayments. Tiffanie Osborn MA MD Community Education Coordinator Division of Maternal- Medicine and Ultrasound Department of Obstetrics and Gynecology [facility] 12/25/2024 Progress Notes - Telemedicin e - [...] [x] Blue Team Referring Provider: Trent Levin [phone] > Transferring to [facility] [place] 08/30/24. ( Chandrakant Morales MD) [] or [...] will obtain login) Glargine Glargine 48u qAM Vhntavn34/22/22 - Physician adjusting insulin dosage: MFM [x] [...] questions. Sincerely, Amber Cook MD Maternal Medicine [facility] This was a telemedicine visit with Penny Larkin which took place via Real-time video connection (InTouch, Zoom or similar). During the visit, I was located in the office and the patient was located in the [facility] office in the [facility]. The patient visit started at [...] on remote diabetes management. Sherry Luna MD Community Education Coordinator Division of Maternal- Medicine and Ultrasound Department of Obstetrics and Gynecology [facility] Progress Notes - Documentati [...] questions. Sincerely, Amber Cook MD Maternal Medicine [facility] This was a telemedicine visit with Penny Larkin which took place via Real-time video connection ([employer], Zoom or similar). During the visit, I was located in the office and the patient was located in the [facility] office in the [facility]. The patient visit started at [...] on remote diabetes management. Sherry Luna MD Community Education Coordinator Division of Maternal- Medicine and Ultrasound Department of Obstetrics and Gynecology [facility] Progress Notes - Documentati on - 09/29/2024 [...] on remote diabetes management. Sherry Luna MD Community Education Coordinator Division of Maternal- Medicine and Ultrasound Department of Obstetrics and Gynecology [facility] Progress Notes - Documentati on [...] Maria Luisa Hector MD Maternal Medicine 09/22/2024 MANAGEMENT COORDINATOR MANAGEMENT COORDINATOR Progress Notes - Telemedicin e - 09/16/2024 [...] performed due to telemedicine visit Assessment/Plan: Penny Larkin is a 33 y.o. [...] trimester Continue co-management of care with Dr. Moarles Thank you for your consultation. Please don't [...] took place via Real- time video connection ([employer], [employer]est[employer] or similar).During the visit, I was located in the office and the patient was located in her home in the [facility]. My visit with the patient [...] that this service replaces an office visit. MANAGEMENT COORDINATOR Progress Notes - Documentati on - 09/08/2024 [...] on remote diabetes management. Sherry Luna MD Community Education Coordinator Division of Maternal- Medicine and Ultrasound Department of Obstetrics and Gynecology [facility] MANAGEMENT COORDINATOR Progress Notes - Telemedicin e - 08/19/2024 - GA:11w6d 08/19/2024 - 11w6d - Gracie Fierro MD Maternal Medicine Consult Note This was a telemedicine visit with Penny and her mother which took place via Real-time video connection ([employer], [employer]est[employer] or similar).During the visit, I was located in the office and the patient was located in our [place] office in the [facility]. My visit with the patient started [...] heart surgery. Doing well now. Transferring to [facility] [place] 08/30/24. 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 [] or Medicare Insurance [x] Dating [...] for MFM telehealth visit Gracie Fierro MD Community Education Coordinator Division of Maternal- Medicine MANAGEMENT COORDINATOR Progress Notes - Abstract - 08/11/2024 - GA:10w5d 08/11/2024 - 10w5d - Kermit Sweeney RMA Ob records in media MANAGEMENT COORDINATOR Last Filed Vital Signs Vital Sign Reading [...] fluid volume is normal. Tani Hayward MD [facility] OB US PROCEDURES Final R esult * [...] volume measured 12 cm Tani Hayward MD [facility] OB US PROCEDURES Final R esult from Last 3 Months Insurance CHOICE PRF PPO [place] IDPA Care Teams Anchorman Relationship Specialty Start Date End Date No, Physician PCP - General 08/04/24
--- OUTSIDE RECORDS SUMMARY | 2025-02-18 10:23 | XMS_ITS | Referral Summary ---
Author Organization [facility] Address [address] [place] [address] Care Team Providers Care Divinity Professor Name Role Phone No, Physician Primary Care Provider Encounters Date Type Department Care Team Description 01/26/[address] [phone] Sherry Luna MD Glycemic control meeting 01/19/[address] [phone] Ava Ellington MD glycemic control 01/13/2025 1:45 PM CDT Telemedicine [facility] Obstetrics and Gynecology [address] [place] [phone] Pre-existing type 2 diabetes mellitus during in third trimester (Primary Dx); Supervision of high risk in second trimester; Chronic hypertension affecting 01/13/2025 12:30 PM CDT Ancillary Procedure [facility] Obstetrics and Gynecology [address] [place] [phone] Pre-existing type 2 diabetes mellitus during in third trimester; Supervision of high risk in second trimester; Chronic hypertension affecting 01/12/2025 Telephone [facility] Obstetrics and Gynecology [address] [place] [phone] Ashley Valverde CMA 01/05/[address] [phone] Sherry Luna MD Glycemic control meeting 12/29/[address] [phone] Sherry Luna MD Glycemic control meeting 12/23/2024 11:15 AM CDT Telemedicine [facility] Obstetrics and Gynecology [address] [phone] Pre-existing type 2 diabetes mellitus during in third trimester (Primary Dx); Supervision of high risk in second trimester; Chronic hypertension affecting ; Previous with congenital heart defect, currently , second trimester; 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; History of LEEP (loop electrosurgical excision procedure) of cervix complicating in first trimester 12/23/2024 10:30 AM CDT Ancillary Procedure [facility] Obstetrics and Gynecology [address] [place] [phone] Chronic hypertension affecting ; Pre-existing type 2 diabetes mellitus during in second trimester; Supervision of high risk in second trimester 12/22/2024 Telephone [facility] Obstetrics and Gynecology [address] [phone] Ashley Valverde CMA 12/15/[address] [phone] Sherry Luna MD Glycemic control meeting 12/08/[address] [phone] Carla Govea MD 12/01/[address] [phone] Maria Luisa Hector MD 11/24/2024 11:30 AM CDT Telemedicine [facility] Obstetrics and Gynecology [address] [phone] Chronic hypertension affecting (Primary Dx); Pre-existing type 2 diabetes mellitus during in second trimester; Supervision of high risk in second trimester; Previous with congenital heart defect, currently , second trimester; 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; History of LEEP (loop electrosurgical excision procedure) of cervix complicating in first trimester 11/24/2024 10:45 AM CDT Ancillary Procedure [facility] Obstetrics and Gynecology [address] [facility] [address] [place] [phone] Pre-existing type 2 diabetes mellitus during in second trimester; Chronic hypertension affecting ; Supervision of high risk in second trimester 11/23/2024 Telephone [facility] Obstetrics and Gynecology [address] [facility] [address] [place] [address] Ashley Valverde CMA from Last 3 Months Allergies No known active allergies Medications aspirin 81 mg chewable tablet Take 1 tablet (81 mg total) by mouth daily Active vit 01-btiq-imimh-d presley 27mg iron- 800 mcg-250 mg capsule [...] [x] Offer echocardiogram with pediatric cardiology - [facility] Assessment & Plan (09/16/2024 9:25 AM CARBON ELECTRODES SUPERVISOR): History: 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 Doing well now. Plan: [] Specialized anatomic survey at 18-22 weeks [] Offer echocardiogram with pediatric cardiology Assessment & Plan (08/19/2024 4:24 PM CARBON ELECTRODES SUPERVISOR): History: PV stenosis in prior daughter [...] cardiology Supervision of high risk in third [facility] 08/11/2024 Overview (01/13/2025): [x] Co-management vs. [] Full [facility] Care; [] Red Team [x] Blue Team Referring Provider: Trent Levin [phone] > Transferring to [facility] 08/30/24. ( Chandrakant Morales MD) [] or [...] OB Assessment & Plan (09/16/2024 9:26 AM CARBON ELECTRODES SUPERVISOR): Continue co-management of care with Dr. Morales Assessment & Plan (08/19/2024 4:23 PM CARBON ELECTRODES SUPERVISOR): [x] Co-management vs. [] Full MFM Care; [] Red Team [x] Blue Team Referring Provider: Trent Levin [phone] > Transferring to [facility] 08/30/24. [] or Medicare Insurance [x] Dating [...] metformin, ozempic MFM counseling: completed 08/19/2024 Using [employer] with clinic accounts Plan - Current regimen: [...] continuation of insulin until re-establishing care with soda fountain operator or PCP If : Glargine 12u qAM [...] continuation of insulin until re-establishing care with soda fountain operator or PCP If : Glargine 12u qAM Humalog 4u TID If not : Glargine 14u qAM Humalog 4u TID [x] Counseling performed [x] Diabetes education [x] Recommend weekly review of BG/insulin data to adjust insulin dosing [x] Glucagon prescribed by primary OB [x] Referral to ophthalmology for comprehensive eye exam - up to date [x] Baseline [facility] - W[facility] [] A1c qTrimester [x] [...] made. Assessment & Plan (09/16/2024 9:24 AM CARBON ELECTRODES SUPERVISOR): 09/16/24 CGM review: Past two days with [...] controlled) Assessment & Plan (08/19/2024 4:22 PM CARBON ELECTRODES SUPERVISOR): History Diagnosed 2020 History of DKA? [...] asymptomatic. Assessment & Plan (09/16/2024 9:25 AM CARBON ELECTRODES SUPERVISOR): Diagnosis: ~2017 Pre- medications: lisinopril S/p counseling [...] preeclampsia. Assessment & Plan (08/19/2024 4:20 PM CARBON ELECTRODES SUPERVISOR): Diagnosis: ~2017 Pre- medications: lisinopril Counseling 08/19/2024: [...] care Assessment & Plan (08/19/2024 4:21 PM CARBON ELECTRODES SUPERVISOR): Counseling 08/19/2024: While some studies have [...] on file Legal Sex Female 9:48 AM CARBON ELECTRODES SUPERVISOR Gender Identity Not on file Sexual [...] fluid volume is normal. Tani Hayward MD [facility] [place]ED[place] Final R esult * [...] volume measured 12 cm Tani Hayward MD [facility] [place] US [place]EDURES Final R esult from Last 3 Months Insurance [place] Care Teams Divinity Professor Relationship Specialty Start Date End Date No, Physician PCP - General 08/04/24
[2025-02-18] MEDS: ACETAMINOPHEN 500 MG TABLET 1000 MG PO ×2 (10:27→19:15)
[2025-02-18] MEDS: LACTATED RINGERS 1,000 ML 125 ML IV CONT ×2 (10:56→11:45)
[2025-02-18] MEDS: ONDANSETRON INJ 4 MG/2 ML VIAL IV PUSH (11:48)
[2025-02-18] MEDS: FAMOTIDINE 20 MG/2 ML VIAL IV PUSH (11:50)
--- NOTE | 2025-02-18 12:10 | P.HP_ITS ---
H&P: HPI History of Present Illness Date/Time: 02/18/25 12:10 Chief Complaint: Term Narrative: This patient is a 34-year-old multiparous female at term with a breech presentation. We have agreed to perform delivery. She understands risks, benefits, and alternatives. She has completed form consent process and is ready to proceed. The patient understands the details of the procedure. The procedure has been explained in detail. She understands the risks. She understands that injuries may occur that result in hospitalization, more surgery, and severe illness. She understands risk of hemorrhage and infection. She denies any chest pain or shortness of breath. She denies any nausea, vomiting, fever, chills. Review of Systems Review of Systems: All systems reviewed & are unremarkable except as noted in HPI and below Constitutional: Constitutional: Denies chills, Denies fatigue, Denies fever(s) and Denies weakness Eyes: Eyes: Denies blurry vision, Denies change in vision, Denies loss of per ipheral vision, Denies loss of vision, Denies other visual disturbances and Denies eye pain ENT: Denies vertigo, Denies dizziness, Denies hearing loss, Denies mouth pain, Denies nasal obstruction, Denies neck mass and Denies neck pain Cardiovascular: Cardiovascular: Denies chest pain, Denies diaphoresis, Denies syncope, Denies leg edema and Denies dyspnea Respiratory: Respiratory: Denies chest congestion, Denies cough, Denies hemoptysis, Denies dyspnea and Denies wheezing Gastrointestinal: Gastrointestinal: Denies abdominal pain, Denies constipation, Denies diarrhea, Denies nausea and Denies vomiting Genitourinary: Genitourinary: Denies hematuria, Denies change in libido, Denies nocturia, Denies genital lesions, Denies flank pain and Denies urinary urgency Musculoskeletal: Musculoskeletal: Denies abnormal gait, Denies back pain, Denies myalgias, Denies arthralgias, Denies joint swelling, Denies muscle weakness and Denies neck pain Integumentary/Breasts: Skin/Breast: Denies swelling, Denies breast pain, Denies breast mass, Denies dry skin, Denies nipple discharge, Denies unusual bruising and Denies jaundice Neurologic: Denies Neuro-related abnormal movements, Denies Abnormal speech present, Denies abnormal gait, Denies behavioral changes, Denies confusion, Denies vertigo, Denies dizziness, Denies syncope, Denies loss of vision, Denies memory loss, Denies convulsions and Denies weakness Psychiatric: Psychiatric: Denies abnormal sleep pattern, Denies behavioral changes, Denies change in libido, Denies confusion, Denies depression, Denies a nhedonia and Denies memory loss Endocrine: Endocrine: Reports no additional endocrine complaints, Denies change in libido and Denies fatigue Hematologic/Lymphatic: Hematologic/Lymphatic: Reports no additional hematologic/lymphatic complaints Allergic/Immunologic: Allergic/Immunologic: Reports no additional allergic/immunologic complaints and Denies wheezing [facility] Family History Family History (Updated 02/17/25 @ 10:43 by Margo Vo RN) Other Diabetes mellitus Social History Social History Smoking status: Never smoker Second hand tobacco smoke exposure: No Substance use: never Do You Feel Safe in your Home?: Yes Lack of Transportation: No Lack of Food: Never True Current Housing: I Have Housing Concerned About Future Housing: No Difficulty Paying Gas/Electric Bills: No Difficulty Paying for Meds: No Currently Unemployed: No Education: Trade/Vocational Certificate Difficulty w/ Childcare or Family Care: No Spiritual care concerns: No Meds Home Medications and Allergies Home Medications ?Medication ?Instructions ?Recorded ?Confirmed ?Type insulin glargine-yfgn 100 unit/mL 40 unit subcut .am 01/08/25 02/17/25 History (3 mL) subcutaneous pen insulin lispro 100 unit/mL 22 unit subcut .breakfast 01/08/25 02/17/25 History subcutaneous pen (Humalog KwikPen (U-100) Insulin) pen needle, diabetic 32 gauge x 01/08/25 01/08/25 History 5/32 insulin lispro 100 unit/mL 22 unit subcut QACLUNCH 01/23/25 02/17/25 History subcutaneous solution (Admelog U-100 Insulin lispro) insulin lispro 100 unit/mL 28 unit subcut QACDINNER 01/23/25 02/18/25 History subcutaneous solution (Admelog U-100 Insulin lispro) aspirin 81 mg tablet,delayed 81 mg PO DAILY 02/18/25 02/18/25 History release (Adult Low Dose Aspirin) vit no.95-ferrous 1 tablet PO DAILY 02/18/25 02/18/25 History fumarate 28 mg-folic acid 800 mcg tablet () Allergies Allergy/AdvReac Type Severity Reaction Status Date / Time No Known Allergies Allergy Verified 02/18/25 10:19 Vital Signs Vital Signs - 24 hr 02/18/25 11:00 02/18/25 11:01 02/18/25 11:11 Temperature 99.5 F Pulse Rate 73 80 81 Blood Pressure 128/69 125/74 134/72 02/18/25 11:21 Temperature Pulse Rate 79 Blood Pressure 135/84 Exam Const: General: cooperative, healthy appearing, comfortable and no acute distress Orientation/consciousness: oriented to person, oriented to place and oriented to time HENMT: Head: normal to inspection Ears: external ears normal Face/Nose/Sinus: Normal external nose present and normal facial exam Face and sinus: normal facial exam Eyes: General: appearance normal, both eyes and all related structures Neck: Neck: normal visual inspection, trachea midline and supple Resp: Auscultation: clear to auscultation bilaterally, no crackles, no rales, no rhonchi and no wheezes Cardio: Rate: regular rate Rhythm: regular rhythm Heart sounds: no click, no murmurs and no rubs GI: GI Palp: No abdominal tenderness, No Soft to palpation, No Tenderness to palpation present (GI) and No Palpable mass present Auscultation: normal bowel sounds Skin: General skin exam: normal color and no rashes or lesions noted Neuro: General: oriented to person, oriented to place and oriented to time Extrem: General: normal to inspection, no joint enlargement, no clubbing, cyanosis or edema, no pedal edema and no calf tenderness Psych: Appearance: grossly normal Mental Status: mental status grossly normal Speech and movement: Normal speech and movement present Assessment and Plan Assessment and plan (1) Breech presentation: Code(s): O32.1XX0 - Maternal care for breech presentation, not applicable or unspecified Status: Acute Plan This patient is a 34-year-old multiparous female at term with a breech presentation. We have agreed to perform delivery. She understands risks, benefits, and alternatives. She has completed form consent process and is ready to proceed.
--- NOTE | 2025-02-18 12:13 | WPDHPUPDATE1 ---
History and Physical Update Update Date/Time: 02/18/25 12:13 History and Physical has been reviewed, including an updated exam of the patient. There are NO changes in the patient's condition. Risks, benefits, and alternatives have been discussed and questions answered. Patient agrees to proceed with procedure.
--- NOTE | 2025-02-18 12:16 | P.PNAN_ITS ---
Anes - Initial Pre Proc Eval Procedure: Operation Date: 02/18/25 12:00 Proposed Procedures p Section - Markos Caballero MD Date/Time: 02/18/25 12:16 Surgeon: Markos Caballero MD Pre Op Diagnosis: C Section Patient Data Age: 34 Gender: F Height: 1.6 m Weight: 91.8 kg Last Vital Signs Temp 37.5 C 02/18/25 11:00 Pulse 79 02/18/25 11:21 BP 135/84 02/18/25 11:21 Allergies Allergy/AdvReac Type Severity Reaction Status Date / Time No Known Allergies Allergy Verified 02/18/25 10:19 Home Medications ?Medication ?Instructions ?Recorded ?Confirmed ?Type insulin glargine-yfgn 100 unit/mL 40 unit subcut .am 01/08/25 02/17/25 History (3 mL) subcutaneous pen insulin lispro 100 unit/mL 22 unit subcut .breakfast 01/08/25 02/17/25 History subcutaneous pen (Humalog KwikPen (U-100) Insulin) pen needle, diabetic 32 gauge x 01/08/25 01/08/25 History 5/32 insulin lispro 100 unit/mL 22 unit subcut QACLUNCH 01/23/25 02/17/25 History subcutaneous solution (Admelog U-100 Insulin lispro) insulin lispro 100 unit/mL 28 unit subcut QACDINNER 01/23/25 02/18/25 History subcutaneous solution (Admelog U-100 Insulin lispro) aspirin 81 mg tablet,delayed 81 mg PO DAILY 02/18/25 02/18/25 History release (Adult Low Dose Aspirin) vit no.95-ferrous 1 tablet PO DAILY 02/18/25 02/18/25 History fumarate 28 mg-folic acid 800 mcg tablet () Laboratory Tests 02/18/25 11:04 POC Capillary Glucose 92 mg/dl (65-105) Patient hx anesthesia problems: none Family hx anesthesia problems: none Results Review: All pre-operative results and documents have been reviewed as part of the pre- operative evaluation. [facility] Family History Family History Other Diabetes mellitus Social History Social History Smoking status: Never smoker Second hand tobacco smoke exposure: No Substance use: never Do You Feel Safe in your Home?: Yes Lack of Transportation: No Lack of Food: Never True Current Housing: I Have Housing Concerned About Future Housing: No Difficulty Paying Gas/Electric Bills: No Difficulty Paying for Meds: No Currently Unemployed: No Education: Trade/Vocational Certificate Difficulty w/ Childcare or Family Care: No Spiritual care concerns: No Anes - Eval Final PreProcedure Day of Procedure 02/18/25 12:16 Patient weight: obese Heart: regular rate and rhythm Lungs: clear to auscultation Airway: Mallampati scale class II Neurological: alert and oriented Last oral intake: >/= 8 hours ASA classification: III Emergent: no Anesthetic plan: proceed Anesthesia type and monitoring: regional spinal and standard monitoring Results Review: All pre-operative results and documents have been reviewed as part of the pre- operative evaluation. Informed Consent: The patient's anesthetic plan and its attendant risks and benefits were discussed with the patient/family/POA. Questions were solicited and answers provided to the satisfaction of the patient/family/POA.
[2025-02-18] MEDS: ceFAZolin 2 GM in SODIUM CHLORIDE 0.9% IV 50 ML 100 ML IVPB (12:22)
--- NOTE | 2025-02-18 13:10 | W.PM.OBCSD ---
OB - Delivery Note Procedure Delivery date: 02/18/25 Pre-op diagnosis: Breech Presentation Post-op Diagnosis: Same Procedure Performed: Primary Surgeon: Markos Caballero MD Anesthesia type: Spinal Description of Procedure/Findings: The patient was taken the operating room.? She was prepped and draped in dorsal supine position with a leftward tilt.? This was done after spinal anesthetic was applied.? A low-transverse skin incision was made and carried down till of the fascia with the knife.? The fascial incision was made with the knife.? The fascial incision was extended laterally with Cantrell scissors.? The fascia was tented upward superiorly and inferiorly the rectus muscles were dissected off bluntly.? The rectus muscles were the midline.? The preperitoneal fat and peritoneum were dissected open bluntly at the superior aspect of the rectus muscles.? The peritoneal incision was extended superior and inferior with good position of bladder.? The uterine incision was made with a scalpel down to the level of the amniotic cavity.? The amniotic cavity was entered bluntly.? The was delivered.? The cord was clamped and cut and the infant was handed off to waiting pediatric staff.? Cord bloods were obtained.? The placenta was removed manually.? The uterus was exteriorized.? The uterus was cleared of all clots, debris and membranes.? The uterus was closed in 0 Vicryl running lock fashion.? An imbricating over a was placed along the incision line as well.? The uterus was returned to the abdomen.? The gutters were cleared of all clots and debris.? The fascia was closed with 0 Vicryl running fashion.? The subcutaneous tissue was irrigated pinpoint bleeders were cauterized.? The skin was closed with subcuticular absorbable alexandra.? The skin incision line was covered with glue.? The patient tolerated the procedure well.? She has taken recovery room in stable condition.? Sponge lap and needle counts were correct x2.? Estimated Blood Loss: 300 Pathology: None sent Complications: No immediate complications Condition: Stable Disposition: Floor
[2025-02-18] MEDS: OXYTOCIN 30 UNITS/NS 500 ML 30 UNITS/500 ML BAG 125 UNITS IV CONT (13:34)
[2025-02-18] MEDS: KETOROLAC 15 MG/ML VIAL (*BKC) IV PUSH ×2 (13:43→19:13)
[2025-02-18] MEDS: SIMETHICONE 80 MG TAB.CHEW PO ×2 (15:05→19:15)
[2025-02-18] MEDS: LIDOCAINE 5% PATCH 1 PATCH TRANSDERM (15:08)
--- NOTE | 2025-02-18 17:22 | PC.NURSE ---
1645. Introductions were made, then consulted with patient to assess needs related to . Discussed with mother her plans to feed her and the experience so far. Encouraged mother to express any questions or concerns she has regarding feedings. Mom reports infant did not want to open his mouth and feed well for his first feeding. Advised her to call out for a latch check or if she needs assistance waking or positioning baby. Reviewed the blue feeding worksheet for required output and feeding at least 8-12 times every 24 hours. Resources provided for inpatient and outpatient services with the feeding sheet, mom/baby guide, and name/number written on the communication board. Mother voiced understanding of information and will call if there is a request for assistance. Reported to the Primary RN?
[2025-02-18] MEDS: DEXTROSE 5%/0.45% SOD CHL 1,000 ML 125 ML IV CONT (17:47)
[2025-02-18] MEDS: INSULIN ASPART (*BKC) 100 UNITS/ML SUB-Q (19:11)
[2025-02-18] MEDS: DOCUSATE SODIUM 100 MG CAPSULE PO (19:15)
[2025-02-19] MEDS: ACETAMINOPHEN 500 MG TABLET 1000 MG PO ×4 (00:58→21:12)
[2025-02-19] MEDS: KETOROLAC 15 MG/ML VIAL (*BKC) IV PUSH ×2 (00:58→08:36)
[2025-02-19 05:28] LABS: Hematocrit 30.2 % (37.0-47.0); Hemoglobin 10.0 g/dL (12.0-15.0); Immature Granulocyte Percent A 0.7 % (0-0.5); Lymphocytes Absolute Auto 2.59 K/mm3 (0.9-3.2); Mean Corpuscular HGB Conc 33.1 g/dl (32-36); Mean Corpuscular Hemoglobin 31.1 pg (26-34); Mean Corpuscular Volume 93.8 fl (80-100); Nucleated Red Blood Cells Absolute Auto 0.000 K/mm3 (0.0-0.012); Nucleated Red Blood Cells Perc 0.0 % (0.0-0.2); Platelet Count Result 257 k/mm3 (150-375); Red Blood Count 3.22 M/mm3 (4.2-5.4); White Blood Count 11.6 K/mm3 (4.5-10.0)
--- NOTE | 2025-02-19 07:15 | PC.NURSE ---
Infant has a blood sugar WNL and primary RN requests feeding assistance. Mom states that baby has not been feeding well at breast. He has been bottle feeding better that yesterday. Mom has baby in cradle hold on the left breast. We repositioned baby so he was tummy to tummy and nose to nipple. He did make a few attempts to latch but he does not open his mouth wide enough to obtain a latch. He turns his head and searches for the breast but when the nipple is placed near his lips he does not attempt to latch or suckle. We tried for about ten minutes with any successful latches. Baby was becoming frustrated so we discussed the [id number] feeding plan. Mom is instructed to continue pumping regularly for maximum milk production and we reviewed colostrum and volume expectations in the immediate period. Baby should be supplemented with at least 15ml of formula after attempting at breast. Father is present and supportive. Parents verbalize understanding of the feeding plan and will call out for feeding assistance today. Primary RN updated.
[2025-02-19 08:05] VITALS: BP 120/75; PULSE 80; RESP 18; TEMP 36.8; O2SAT 99
[2025-02-19] MEDS: SIMETHICONE 80 MG TAB.CHEW PO ×3 (08:35→18:47)
[2025-02-19] MEDS: MULTIVIT/MIN/PREN/FOL AC/IRON TABLET 1 TAB PO (08:35)
[2025-02-19] MEDS: DOCUSATE SODIUM 100 MG CAPSULE PO ×2 (08:36→18:47)
[2025-02-19] MEDS: IBUPROFEN 600 MG TABLET PO ×2 (08:42→21:12)
[2025-02-19] MEDS: INSULIN ASPART (*BKC) 100 UNITS/ML SUB-Q ×3 (09:58→18:47)
[2025-02-19] MEDS: INSULIN GLARGINE (*BKC) 100 UNITS/ML 12 UNITS SUB-Q (09:58)
--- NOTE | 2025-02-19 10:34 | P.PNOB_ITS ---
OB - PN: Subj Subjective Date/time seen: 02/19/25 10:34 Interval history: POD#1 s/p PLTCS Doing well, pain controlled Catheter removed this AM Tolerating general diet Working on OB - PN: Obj Data Labs 02/19/25 04:56 Labs: Laboratory Results - last 24 hr 02/18/25 02/18/25 02/19/25 11:04 18:38 04:55 WBC RBC Hgb Hct MCV MCH MCHC RDW Plt Count MPV Immature Gran % (Auto) Neut % (Auto) Lymph % (Auto) [place] % (Auto) Eos % (Auto) Baso % (Auto) Lymph # (Auto) [place] # (Auto) Eos # (Auto) Baso # (Auto) Abs Immat Gran (auto) Absolute Neuts (auto) Absolute Nucleated RBC Nucleated RBC % POC Capillary Glucose 92 131 H Blood Type A Negative Antibody Screen TNP Screen Positive H Baby's Blood Type O pos Baby's DWIGHT Negative 02/19/25 02/19/25 04:56 09:09 WBC 11.6 H RBC 3.22 L Hgb 10.0 L Hct 30.2 L MCV 93.8 MCH 31.1 MCHC 33.1 RDW 12.7 Plt Count 257 MPV 10.1 Immature Gran % (Auto) 0.7 H Neut % (Auto) 66.3 Lymph % (Auto) 22.4 [place] % (Auto) 8.9 H Eos % (Auto) 1.2 Baso % (Auto) 0.5 Lymph # (Auto) 2.59 [place] # (Auto) 1.0 H Eos # (Auto) 0.1 Baso # (Auto) 0.1 Abs Immat Gran (auto) 0.08 H Absolute Neuts (auto) 7.7 H Absolute Nucleated RBC 0.000 Nucleated RBC % 0.0 POC Capillary Glucose 105 Blood Type Antibody Screen Screen Baby's Blood Type Baby's DWIGHT OB - PN A/P Assessment and Plan (1) S/P : Code(s): Z98.891 - History of uterine scar from previous surgery Status: Acute Plan day: 1 Plan: routine care Time Spent With Patient Time: Total time spent is greater than 50% in coordination of care (as documented) at patient's floor/unit and/or counseling patient: Review of Systems 2 Review of Systems: All systems reviewed & are unremarkable except as noted in HPI and below Exam 2 Const: General: comfortable and no acute distress O rientation/consciousness: patient oriented x3 Resp: Effort & Inspection: normal respiratory effort GI: Other: soft, nontender, nondistended, incision c/d/i
[2025-02-19 12:12] VITALS: BP 93/51; PULSE 86; RESP 18; TEMP 36.8; O2SAT 97
[2025-02-19] MEDS: RHO(D) IMMUNE GLOBULIN 300 MCG/2 ML SYRINGE IM (13:37)
[2025-02-19 20:03] VITALS: BP 121/71; PULSE 81; RESP 18; TEMP 36.8; O2SAT 98
[2025-02-19] MEDS: oxyCODONE HCL (*CRX) 5 MG TAB IR 10 MG PO (21:54)
[2025-02-20 08:45] VITALS: BP 130/88; PULSE 89; RESP 18; TEMP 36.8; O2SAT 100
[2025-02-20] MEDS: SIMETHICONE 80 MG TAB.CHEW PO (08:48)
[2025-02-20] MEDS: MULTIVIT/MIN/PREN/FOL AC/IRON TABLET 1 TAB PO (08:48)
[2025-02-20] MEDS: DOCUSATE SODIUM 100 MG CAPSULE PO (08:48)
[2025-02-20] MEDS: IBUPROFEN 600 MG TABLET PO (08:48)
[2025-02-20] MEDS: ACETAMINOPHEN 500 MG TABLET 1000 MG PO (08:49)
[2025-02-20] MEDS: INSULIN ASPART (*BKC) 100 UNITS/ML SUB-Q (09:13)
[2025-02-20] MEDS: INSULIN GLARGINE (*BKC) 100 UNITS/ML 12 UNITS SUB-Q (09:14)
--- NOTE | 2025-02-20 11:43 | P.PNOB_ITS ---
OB - PN: Subj Subjective Date/time seen: 02/20/25 11:43 Interval history: POD#1 s/p PLTCS Doing well, pain controlled Catheter removed this AM Tolerating general diet Working on Patient comments: no complaints, pain well controlled, incisional pain, tolerating diet and flatus present OB - PN: Obj Data Labs 02/19/25 04:56 Labs: Laboratory Results - last 24 hr 02/19/25 02/19/25 02/19/25 04:55 12:53 18:30 POC Capillary Glucose 114 H 135 H Blood Type A Negative Antibody Screen TNP Screen Positive H Baby's Blood Type O pos Baby's DWIGHT Negative KB Hemoglobin Positive Doses of RhIg Required 2 02/20/25 09:10 POC Capillary Glucose 124 H Blood Type Antibody Screen Screen Baby's Blood Type Baby's DWIGHT KB Hemoglobin Doses of RhIg Required OB - PN A/P Plan day: 2 Plan: routine care Comments: POD#2 LTCS - no problems, Time Spent With Patient Time: Total time spent is greater than 50% in coordination of care (as documented) at patient's floor/unit and/or counseling patient: Exam 2 Const: General: comfortable, no acute distress and alert Resp: Effort & Inspection: normal respiratory effort Auscultation: no crackles, no rales and no rhonchi Cardio: Rate: regular rate Heart sounds: no click, no murmurs and no rubs GI: Inspection: non-distended Auscultation: normal bowel sounds Other: Incision - CDI Extrem: General: normal to inspection, no pedal edema and no calf tenderness
--- NOTE | 2025-02-20 11:44 | P.DS_ITS ---
DS: Admitting Diagnosis Discharge Date 02/20/2025 Admitting Diagnosis Term DS: Discharge Diagnosis Discharge Diagnosis (1) S/P : Code(s): Z98.891 - History of uterine scar from previous surgery Status: Acute OB - DS: Summary OB Procedures : None OB Procedures Intrapartum: OB Procedures: : None Peripartum Data Procedures: Procedures Operation Date: 02/18/25 12:00 Actual Procedure Side Surgeon p Section Markos Caballero MD Time Spent with Patient Time attestation: Total time spent providing and/or coordinating discharge services: DS: Data Data Completed and Pending Labs on day of discharge: Labs from last 24 hours 02/20/25 02/19/25 02/19/25 09:10 18:30 12:53 POC Capillary Glucose 124 H 135 H 114 H Blood Type Antibody Screen Screen Baby's Blood Type Baby's DWIGHT KB Hemoglobin Doses of RhIg Required 02/19/25 04:55 POC Capillary Glucose Blood Type A Negative Antibody Screen TNP Screen Positive H Baby's Blood Type O pos Baby's DWIGHT Negative KB Hemoglobin Positive Doses of RhIg Required 2 Discharge Plan Discharge Discharging Clinician: Markos Caballero Patient Disposition: Home Activity: pelvic rest Diet: regular Patient Instructions: Antibiotic Form Patient Language: Greenlandic Stand Alone Forms: General Discharge Information Follow-up/Referrals: Markos Caballero MD [Physician] - Discharge Medications: New hydrocodone-acetaminophen 5-325 mg tablet 1 - 2 tablet PO Q6H PRN (Reason: pain) Qty: 25 0RF Continued insulin lispro [Admelog U-100 Insulin lispro] 100 unit/mL solution 22 unit subcut QACLUNCH insulin lispro [Admelog U-100 Insulin lispro] 100 unit/mL solution 28 unit subcut QACDINNER aspirin [Adult Low Dose Aspirin] 81 mg tablet,delayed release (DR/EC) 81 mg PO DAILY PNV no.95-ferrous fumarate-FA [] 28 mg iron- 800 mcg tablet 1 tablet PO DAILY insulin lispro [Humalog KwikPen Insulin] 100 unit/mL insulin pen 22 unit SUBCUT .breakfast (DME) pen needle, diabetic 32 gauge x 5/32 needle MISCELLANEOUS insulin glargine-yfgn 100 unit/mL (3 mL) insulin pen 40 unit SUBCUT .am Date of admission: 02/18/25 10:05 Primary Care Provider: HALLEYABRIL Admitting Provider: Markos Caballero Attending physician on admission: Markos Caballero Condition: Stable
--- NOTE | 2025-02-20 11:52 | WPDANLDPN2 ---
Anes-Prog Note L&D Date/Time: 02/20/25 11:52 Comfortable throughout: section Neuraxial method: spinal Epidural/Spinal procedure site: clean & non-tender Neuro status: Neuro function grossly intact. Cardiovascular status: normal Respiratory status: normal Airway patency: baseline Mental status: baseline Post-Op hydration status: normal Vital Signs: Last Vital Signs Temp 98.2 F 02/20/25 08:45 Pulse 89 02/20/25 08:45 Resp 18 02/20/25 08:45 BP 130/88 02/20/25 08:45 Pulse Ox 100 02/20/25 08:45 O2 Del Method Room Air 02/19/25 19:44 Pain score (VAS): 0 I/O: Intake & Output 02/19/25 02/20/25 02/20/25 23:59 07:59 15:59 Intake Total 240 500 Balance 240 500 Post-procedural complaints: pruritis mild, no treatment Patient feedback: Patient satisfied with anesthetic care.
[2025-02-22 09:19] VITALS: BP 129/88; PULSE 76; RESP 16; TEMP 36.6; O2SAT 100
== END 2025-02-20 12:35 | disposition home or self-care (01) | DRG 786 ==
LOC: ANHLDR 10:09 → ANHOB2 17:00
PROVIDERS: Admitting Provider Obstetrics & Gynecology; PCP Family Medicine; Visit Provider Obstetrics & Gynecology
PROC: 10D00Z1 Extraction of Products of Conception, Low, Open Approach (ICD-10-PCS; CPT 59514; principal; 2025-02-18 12:00)
DX: O32.1XX0 Maternal care for breech presentation, not applicable or unspecified (principal); O24.12 Pre-existing type 2 diabetes mellitus, in childbirth; O99.824 Streptococcus B carrier state complicating childbirth; O69.81X0 Labor and delivery complicated by cord around neck, without compression, not applicable or unspecified; Z3A.38 38 weeks gestation of pregnancy; Z37.0 Single live birth; Z79.4 Long term (current) use of insulin
CPT/HCPCS: 36415; 82948; 85025; 85460; 85461; 86850; 86900; 86901; 90384; J0690; A9270; J1815; J1885; J2274; J2371; J2405; J2590; J2790; J7120